=== PATIENT | female | born 1935 | race Caucasian/White ===

== ENCOUNTER 2019-02-08 11:33 | Inpatient (IN) | payer MEDICARE, OTHER, SELFPAY ==
[2019-02-08] VITALS (11 sets, daily range): BP systolic 100–115; BP diastolic 64–70; PULSE 75–113; RESP 20–92; TEMP 36.7–36.9; O2SAT 90–100; BMI 20.4; BMI 21.3
--- NOTE | 2019-02-08 11:59 | EKG12_ITS ---
Test Reason : SOB Blood Pressure : / mmHG Vent. Rate : 101 BPM Atrial Rate : 101 BPM P-R Int : 130 ms QRS Dur : 084 ms QT Int : 346 ms P-R-T Axes : 025 -17 006 degrees QTc Int : 448 ms Sinus tachycardia with occasional Premature ventricular complexes Otherwise normal ECG Confirmed by ESTEBAN CLEMONS ([id number]), technical editor NANI HARKINS ([id number]) on 02/12/2019 1:20:45 PM Referred By: Ange White Confirmed By:ESTEBAN CLEMONS
[2019-02-08] MEDS: Ipratropium/Albuterol Sulfate 3 ML AMPUL.NEB INHALATION (12:18)
--- NOTE | 2019-02-08 12:22 | CPS ---
Per pt and family, pt wears 3l oxygen at home.
[2019-02-08 12:25] LABS: Absolute Lymphocyte Count 1.55 X10^3/uL (0.83-4.51); Absolute Neutrophil Count 8.3 X10^3/uL (2.0-7.7); Basophil% 0.8 % (0-1); Eosinophil# 0.47 X10^3/uL; Eosinophils% 3.9 % (0-5); Hematocrit 42.6 % (37-47); Hemoglobin 14.1 g/dL (12.0-15.0); Lymphocyte # 1.55 X10^3/ul (4.0); Lymphocyte % 12.9 % (19-41); Mean Corp Hgb Conc 33.1 g/dL (32-36); Mean Corpuscular Hgb 30.7 pg (27.0-32.0); Mean Corpuscular Volume 92.8 fL (81-99); Mean Platelet Vol. 10.5 fl (6.2-12.0); Monocyte# 1.45 X10^3/uL; Monocyte% 12.1 % (0-10); NRBC Flagged by Analyzer 0 % (0-5); Neutrophil # 8.26 X10^3/uL (2.7-7.7); Neutrophil % 69.1 % (47-70); Platelet Count 317 K/mm3 (150-450); RBC Distribution Width CV 12.8 % (11.6-14.6); RBC Distribution Width SD 43.8 fl (35.1-43.9); Red Blood Count 4.59 M/mm3 (4.2-5.4)
[2019-02-08 12:40] LABS: D-Dimer Quantitative (DVT/PE) 1.46 FEU/ug/m (0.27-0.49)
--- NOTE | 2019-02-08 12:40 | ED.RN ---
LAB CALLED WITH D-DIMER 1.46, NOTE LEFT FOR DR. ANAYA.
--- NOTE | 2019-02-08 12:42 | CT_ITS ---
STUDY: CTA CHEST REASON FOR EXAM: Female, 83 years old. One-month history of shortness of breath. RADIATION DOSAGE (If Supplied By Facility): CTDIvol = ( 5.84 ) mGy, DLP = ( 151.28 ) mGycm TECHNIQUE: The examination was performed with the intravenous administration of 75 IV Isovue 370. Post-processing of the angiographic images was performed, with multiplanar reformation and 3D reconstruction. Individualized dose optimization techniques were used for this CT. COMPARISON: Comparison is made with prior study dated December 31, 2015. FINDINGS: Normal enhancement of the main pulmonary artery and right and left pulmonary arteries. Normal enhancement of the bilateral peripheral pulmonary arteries. There is no demonstrated pulmonary embolism. There is atherosclerotic calcification of the aortic arch and descending thoracic aorta with tortuosity. There is no demonstrated aortic dissection. There are calcifications of the coronary arteries. Normal mediastinum. Normal hilar regions. Normal visualized trachea and bronchi. The lungs are well expanded. Stable appearance of the diffuse interstitial markings with areas of honeycombing. Loss of volume in the left hemithorax. There has been essentially no change. Normal pleura. Normal chest wall structures. There are degenerative changes of thoracic spine. Increased kyphosis. Moderate sized hiatal hernia. CT/CTA Chest W/WO Contrast IMPRESSION: Stable appearance of the lungs demonstrating diffuse bilateral interstitial disease in keeping with a pulmonary fibrosis. Volume loss in the left hemithorax. No evidence of pulmonary embolism. Moderate size hiatal hernia. Electronically Signed: Marino Anthony, at 13:35 EDT , Service support ,
[2019-02-08 12:46] LABS: Anion Gap 6 (5-15); BUN 17 mg/dL (7-18); BUN/Creat Ratio 19.4 RATIO (10-20); Calcium,Total 9.8 mg/dL (8.5-10.1); Chloride 96 mmol/L (98-107); Creatinine, Serum 0.88 mg/dL (0.55-1.02); EST Glomerular Filtration Rate 65 mL/min (>60); Est Glom Filt Rate - Afr Amer 79 mL/min (>60); Estimated Creatinine Clearance 35.91 ml/min; Glucose 115 mg/dL (74-106); Potassium 3.1 mmol/L (3.5-5.1); Sodium Level 135 mmol/L (136-145)
[2019-02-08 12:59] LABS: BNP,B-Type NATRIURETIC PEPTIDE 28.6 pg/mL (0-100)
--- NOTE | 2019-02-08 14:51 | ED.VISSUMM ---
- ER Visit Summary Date of Service: 02/08/19 Chief Complaint: [Shortness of breath History of Present Illness: The patient is a 83 F [presents to the emergency department with increasing shortness of breath over last 2 months. Patient has had a mild cough is nonproductive. She is had no fever. She describes exertional dyspnea. Patient up in till about a month ago did not require home O2 but now is on 3 L all the time. In the office on 3 L she was still hypoxic with pulse ox in the 80s. Patient denies any chest pain. Patient does have a history of interstitial lung disease. Patient has history of hypertension. She denies recent travel or surgery.] Physical Examination: [HEENT-PERRLA, EOMI. Cranial nerves II through XII grossly intact. TMs clear. Mucous membranes moist. No adenopathy. Cardiovascular-regular rate and rhythm without murmur or ectopy Lungs-minutes breath sounds bilaterally with coarse breath sounds bilaterally. Patient has rhonchi. Patient has wheezes. No accessory muscle use or retractions. Abdomen-normoactive bowel sounds, soft, nontender, no rebound or rigidity, no peritoneal signs. Extremities-intact ?4, normal range of motion, normal pulses, atraumatic] Test Results: [EKG obtained on arrival shows sinus rhythm with a ventricular rate of 101 bpm with occasional PVCs. CBC with differential obtained showed a white count of 12,000, hemoglobin 14, hematocrit 43, platelets 317. Chemistries showed a potassium 3.1 otherwise were unremarkable. Troponin was less than 0.15. BNP was 28 and d-dimer was 1.46. Patient had a CTA of the chest that showed no evidence of PE or dissection. Patient was noted to have pulmonary fibrosis.] Emergency Department Course and Treatment: [She was given a DuoNeb aerosol and started on Solu-Medrol.] Treatment Plan: [Admit] Disposition: [Admit] Impression: [Dyspnea Hypoxemia Pulmonary fibrosis] This note was generated with [employer] dictation software. It may contain incorrect words, spelling, and punctuation that were not noted in review of the chart prior to signing ED Disposition - Plan for ED Patient: Referrals: Rakel Franco MD [Primary Care Provider] -
--- NOTE | 2019-02-08 14:57 | NURSING ---
103 LAURA ACUTE HYPOXIC RESP FAILURE DUE TO INTERSTITIAL LUNG DISEASE
--- NOTE | 2019-02-08 15:02 | PCM.HP.STD ---
<Maurilio Sanders - Last Filed: 02/08/19 15:43> Problem List (1) Acute and chronic respiratory failure with hypoxia Status: Acute (2) Interstitial lung disease Status: Chronic (3) Hypertension Status: Chronic History of Present Illness Date of Admission: 02/08/19 Chief Complaint: SOB The patient is a 83 year old F with pmhx of interstitial lung disease, chronic hypoxic respiratory failure on home O2 PRN, pt of Dr. Ayala, also with hx of HTN, who presents tot he ER from the pulmonary office today with SOB. She has chronic lung issues and has some chronic SOB at baseline, however normally she can function day to day at home without any oxygen and only uses it as needed after she goes out Over the past 3-4 weeks she has progressively worsened. She is SOB at rest and worse with exertion. She has been using O2 more and more, now all day and all night. She has a dry, occasional cough. No fevers/chills. No sore throat, congestion, sinus drainage, runny nose, nausea/vomiting/diarrhea. In the ER she is still SOB on 4 lpm O2. CTA in the ER shows pulmonary fibrosis. [] 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) Interstitial lung disease (Chronic) Hypertension (Chronic) Allergies LOBSTER Allergy (Uncoded 02/08/19 11:34) Anaphylaxis Home Medications: Ambulatory Orders Medication Instructions Recorded Amlodipine [Norvasc] 10 mg PO DAILY 06/20/13 [place]on-3 Fatty Acids/Fish Oil 1 cap PO DAILY 06/20/13 [[place] 3 Fish Oil Softgel] Ubidecarenone [Co Q-10] 100 mg PO DAILY 06/20/13 Cholecalciferol (Vitamin D3) 2,000 unit PO DAILY 02/08/19 [D3-2000] Lactobacillus Acidophilus 1 cap PO DAILY 02/08/19 [Acidophilus] Vitamin B Complex 1 ea PO DAILY 02/08/19 Surgical History: no surgical history Psychiatric History: No pertinent psych hx 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 Denies: Pleuritic Pain, Sputum production Gastrointestinal: Denies: Abdominal Pain, Nausea, Vomiting Genitourinary: Denies: Dysuria Musculoskeletal: Denies: Joint Pain, Joint Tenderness Skin: Denies: Rash, Wounds Neurological: Denies: Numbness, Tingling, Focal weakness Psychiatric: Denies: Anxiety, Depression, Homicidal Ideations, Suicidal Ideations Hematologic/ Lymphatic: Denies: Easy Bruising, Easy Bleeding VTE Information - Inpt Only VTE Present on Admission: No VTE Mechan Device Prophylaxis: None VTE Pharm Prophylaxis ordered?: Yes Patient Problems: Active and Suspected Problems Acute and chronic respiratory failure with hypoxia (Acute) - Physical Exam General: Alert, Oriented x3, Cooperative HEENT: Atraumatic, PERRLA, EOMI, Normocephalic Neck: Supple, No JVD, Negative Carotid Bruits Lungs: Rales - fine crackles left > right, Short of Breath, Wheezes Cardiovascular: Regular rate, No murmurs Abdomen: Bowel Sounds Present, Soft, Non Tender Extremities: No edema, Capillary Refill Less than 3 Seconds Skin: No rashes, No breakdown Musculoskeletal: No Tenderness to Palpation of Joints or Extremities Neurological: Cranial nerves II-XII grossly intact Psych/Mental Status: Normal Affect, Appropriate, Alert and oriented to time, place, person, mood and affect Vital Signs Temp Pulse Resp BP Pulse Ox 98.5 F 97 20 H 110/67 100 02/08/19 11:35 02/08/19 13:36 02/08/19 13:36 02/08/19 13:36 02/08/19 13:36 Oxygen Flow Rate (L/min) 4 Oxygen Delivery Method Nasal Cannula Weight: 108 lb Body Mass Index (BMI) 20.4 Laboratory Tests Past 24 Hrs 02/08/19 02/08/19 02/08/19 12:15 12:15 12:15 WBC 12.0 H RBC 4.59 Hgb 14.1 Hct 42.6 MCV 92.8 MCH 30.7 MCHC 33.1 RDW Std Deviation 43.8 RDW Coeff of Paz 12.8 Plt Count 317 MPV 10.5 Immature Gran % (Auto) 1.200 H Neut % (Auto) 69.1 Lymph % (Auto) 12.9 L [place] % (Auto) 12.1 H Eos % (Auto) 3.9 Baso % (Auto) 0.8 Absolute Neuts (auto) 8.3 H Absolute Lymphs (auto) 1.55 Nucleated RBC % 0 D-Dimer Quant (PE/DVT) 1.46 H* Sodium 135 L Potassium 3.1 L Chloride 96 L Carbon Dioxide 33.0 H Anion Gap 6 BUN 17 Creatinine 0.88 Estim Creat Clear Calc 35.91 Est GFR (MDRD) Af Amer 79 Est GFR (MDRD) Non-Af 65 BUN/Creatinine Ratio 19.4 Glucose 115 H Calcium 9.8 Troponin I < 0.015 B-Natriuretic Peptide 02/08/19 12:15 WBC RBC Hgb Hct MCV MCH MCHC RDW Std Deviation RDW Coeff of Paz Plt Count MPV Immature Gran % (Auto) Neut % (Auto) Lymph % (Auto) [place] % (Auto) Eos % (Auto) Baso % (Auto) Absolute Neuts (auto) Absolute Lymphs (auto) Nucleated RBC % D-Dimer Quant (PE/DVT) Sodium Potassium Chloride Carbon Dioxide Anion Gap BUN Creatinine Estim Creat Clear Calc Est GFR (MDRD) Af Amer Est GFR (MDRD) Non-Af BUN/Creatinine Ratio Glucose Calcium Troponin I B-Natriuretic Peptide 28.6 Assessment/Plan All Active Problems Acute and chronic respiratory failure with hypoxia (Acute) Acute respiratory alkalosis (Acute) Hypokalemic alkalosis (Acute) Sensation of gaseous abdominal fullness (Acute) 1. Acute on chronic hypoxic/hypercapnic respiratory failure 2/2 worsening of interstitial lung disease vs COPD exacerbation - CTA with pulmonary fibrosis. No PE. Mild leukocytosis. Afebrile. Mild tachycardia and tachypnea. Requiring 4 lpm O2 in the ER. Pt of Dr. Ayala. Consider consult to pulmonary medicine. Provide aerosols, steroids. Check viral panel. BNP negative. Troponin negative. EKG SR with PVCs. Obtain records from pulm office. 2. Hypokalemia - replete 3. HTN - stable. DVT ppx: lovenox This patient was seen by Maurilio Sanders PA-C under the supervision of Dr. White. <ChristopherAnge - Last Filed: 02/08/19 16:22> History of Present Illness The patient is a 83 year old F [] Past Medical History Allergies LOBSTER Allergy (Uncoded 02/08/19 11:34) Anaphylaxis - Physical Exam Vital Signs Temp Pulse Resp BP Pulse Ox 98.2 F 90 22 H 113/67 96 02/08/19 16:02 02/08/19 16:02 02/08/19 16:02 02/08/19 16:02 02/08/19 16:02 Oxygen Flow Rate (L/min) 2 Oxygen Delivery Method Nasal Cannula Weight: 112 lb 14.027 oz Body Mass Index (BMI) 21.3 Laboratory Tests Past 24 Hrs 02/08/19 02/08/19 02/08/19 12:15 12:15 12:15 WBC 12.0 H RBC 4.59 Hgb 14.1 Hct 42.6 MCV 92.8 MCH 30.7 MCHC 33.1 RDW Std Deviation 43.8 RDW Coeff of Paz 12.8 Plt Count 317 MPV 10.5 Immature Gran % (Auto) 1.200 H Neut % (Auto) 69.1 Lymph % (Auto) 12.9 L [place] % (Auto) 12.1 H Eos % (Auto) 3.9 Baso % (Auto) 0.8 Absolute Neuts (auto) 8.3 H Absolute Lymphs (auto) 1.55 Nucleated RBC % 0 D-Dimer Quant (PE/DVT) 1.46 H* Sodium 135 L Potassium 3.1 L Chloride 96 L Carbon Dioxide 33.0 H Anion Gap 6 BUN 17 Creatinine 0.88 Estim Creat Clear Calc 35.91 Est GFR (MDRD) Af Amer 79 Est GFR (MDRD) Non-Af 65 BUN/Creatinine Ratio 19.4 Glucose 115 H Calcium 9.8 Troponin I < 0.015 B-Natriuretic Peptide 02/08/19 12:15 WBC RBC Hgb Hct MCV MCH MCHC RDW Std Deviation RDW Coeff of Paz Plt Count MPV Immature Gran % (Auto) Neut % (Auto) Lymph % (Auto) [place] % (Auto) Eos % (Auto) Baso % (Auto) Absolute Neuts (auto) Absolute Lymphs (auto) Nucleated RBC % D-Dimer Quant (PE/DVT) Sodium Potassium Chloride Carbon Dioxide Anion Gap BUN Creatinine Estim Creat Clear Calc Est GFR (MDRD) Af Amer Est GFR (MDRD) Non-Af BUN/Creatinine Ratio Glucose Calcium Troponin I B-Natriuretic Peptide 28.6 Assessment/Plan Patient seen by Maurilio Sanders PA-C Under my supervision. Patient admitted with a complaint of worsening shortness of breath for the past month. She is usually on 2L of oxygen prn at home, but this has not been enough of late. She see a family engagement specialist today and required 4 L of oxygen even with her she was saturation in the low 80s. She admits to a chronic cough which is nonproductive. She denies any fever or chills or wheezing, any chest pain or any other symptoms. Her interstitial lung disease for which she has been seeing a family engagement specialist for is thought to be due to environmental factors but a clear cause has not been pinpointed. REview of systems was otherwise negative. o/e: Vital Signs Height 5 ft 1 in Weight: 112 lb 14.027 oz Weight in Pounds 112.9 lbs Pulse Ox 96 Temperature 98.2 F Pulse Rate 90 Respiratory Rate 22 Blood Pressure 113/67 Blood Pressure Position Semi-Fowlers General: Alert, Oriented x3, Cooperative HEENT: Atraumatic, PERRLA, EOMI, Normocephalic Neck: Supple, No JVD, Negative Carotid Bruits Lungs: coarse crackles in mid and lower lung quiles, no wheezes or rhonchi. on 4L of oxygen by nasal canula Cardiovascular: Regular rate, No murmurs Abdomen: Bowel Sounds Present, Soft, Non Tender Extremities: No edema, Capillary Refill Less than 3 Seconds Skin: No rashes, No breakdown Musculoskeletal: No Tenderness to Palpation of Joints or Extremities Neurological: Cranial nerves II-XII grossly intact Psych/Mental Status: Normal Affect, Appropriate, Alert and oriented to time, place, person, mood and affect Plan is to admit and manage for acute flareup of her interstitial lung disease. Patient counseled that this could also be a worsening of the interstitial lung disease as this would fall in line with the cause of the disease. IV Solu-Medrol 40 mg nightly. Titrate oxygen to maintain saturation above 90%. Breathing treatments. Consult pulmonology. CTA showed diffuse bilateral interstitial disease and volume loss in the left hemithorax with no evidence of pulmonary embolism. Potassium was also slightly low and will replace and monitor. Code Status discussed with patient and she wishes to be DNR CCA. Total time spent discussing CODE STATUS with patient 16 minutes. Rest of management as per Maurilio Sanders PA-C's note, which I have reviewed and endorsed. Code Visit Inpatient E&M: 63908 Init Hosp L3 Procedures: 76869 Advncd Care Plan 30 Min
--- NOTE | 2019-02-08 15:10 | ED.RN ---
PT WAS TAKEN TO PCU PRIOR TO THIS NURSE ADMINISTERING SOLUMEDROL 80MG IVP. THIS NURSE CALLED PCU, SPOKE WITH NICKIE DIAZAND EXPLAINED THAT PT NEEDS THE DOSE OF SOLUMEDROL 80 MG IVP.
[2019-02-08] MEDS: MethylPREDNISolone 125 MG/2 ML Vial 80 MG IV (16:06)
[2019-02-09] VITALS (13 sets, daily range): BP systolic 114–132; BP diastolic 68–79; PULSE 66–101; RESP 18–24; TEMP 36.3–36.7; O2SAT 74–98
[2019-02-09 05:51] LABS: Absolute Lymphocyte Count 1.08 X10^3/uL (0.83-4.51); Absolute Neutrophil Count 8.7 X10^3/uL (2.0-7.7); Basophil# 0.02 X10^3/uL; Basophil% 0.2 % (0-1); Eosinophil# 0.01 X10^3/uL; Eosinophils% 0.1 % (0-5); Hematocrit 41.9 % (37-47); Hemoglobin 13.4 g/dL (12.0-15.0); Lymphocyte # 1.08 X10^3/ul (4.0); Lymphocyte % 10.6 % (19-41); Mean Corpuscular Hgb 29.7 pg (27.0-32.0); Mean Corpuscular Volume 92.9 fL (81-99); Mean Platelet Vol. 11.1 fl (6.2-12.0); Monocyte# 0.27 X10^3/uL; Monocyte% 2.7 % (0-10); NRBC Flagged by Analyzer 0 % (0-5); Neutrophil # 8.65 X10^3/uL (2.7-7.7); Neutrophil % 84.9 % (47-70); Platelet Count 313 K/mm3 (150-450); RBC Distribution Width CV 12.7 % (11.6-14.6); RBC Distribution Width SD 43.6 fl (35.1-43.9); Red Blood Count 4.51 M/mm3 (4.2-5.4); White Blood Count 10.2 K/mm3 (4.4-11.0)
[2019-02-09 06:08] LABS: Anion Gap 8 (5-15); BUN 19 mg/dL (7-18); BUN/Creat Ratio 23.1 RATIO (10-20); Calcium,Total 9.9 mg/dL (8.5-10.1); Chloride 102 mmol/L (98-107); Creatinine, Serum 0.82 mg/dL (0.55-1.02); EST Glomerular Filtration Rate 70 mL/min (>60); Est Glom Filt Rate - Afr Amer 85 mL/min (>60); Estimated Creatinine Clearance 38.54 ml/min; Glucose 144 mg/dL (74-106); Potassium 3.7 mmol/L (3.5-5.1); Sodium Level 143 mmol/L (136-145)
[2019-02-09] MEDS: Enoxaparin 40 MG/0.4 ML Syringe SC (09:23)
[2019-02-09] MEDS: amLODIPine 10 MG Tablet PO (09:23)
[2019-02-09] MEDS: Vitamin B Comp W-C Capsule 1 CAP PO (09:23)
--- NOTE | 2019-02-09 12:26 | PN_ITS ---
<Maurilio Sanders - Last Filed: 02/09/19 12:26> Patient Problems: Active and Suspected Problems Acute and chronic respiratory failure with hypoxia (Acute) Subjective: Pt resting comfortably in bed NAD. SOB is minimally improved at best. Dry cough. No fever/chills. Still SOB with exertion. Remains on 3 lpm o2 via NC. No CP, no LE edema, no palp. No dizziness/LH. - Physical Exam General: Alert, Oriented x3, Cooperative HEENT: Atraumatic, PERRLA, EOMI, Normocephalic Neck: Supple, No JVD, Negative Carotid Bruits Lungs: Diminished, Rales, Wheezes - faint expiratory wheezing Cardiovascular: Regular rate, No murmurs Abdomen: Bowel Sounds Present, Soft, Non Tender Extremities: No edema, Capillary Refill Less than 3 Seconds Skin: No rashes, No breakdown Musculoskeletal: No Tenderness to Palpation of Joints or Extremities Neurological: Cranial nerves II-XII grossly intact Psych/Mental Status: Normal Affect, Appropriate, Alert and oriented to time, place, person, mood and affect Vital Signs Temp Pulse Resp BP Pulse Ox 98 F 88 20 H 124/69 H 93 02/09/19 09:00 02/09/19 09:00 02/09/19 09:56 02/09/19 09:00 02/09/19 09:56 Oxygen Flow Rate (L/min) 3 Oxygen Delivery Method Room Air Weight: 112 lb 14.027 oz Body Mass Index (BMI) 21.3 Intake and Output for Last 24 Hours 02/07/19 02/08/19 02/09/19 23:59 23:59 23:59 Intake Total 350 / 350 600 / 600 Balance 350 / 350 600 / 600 Laboratory Tests Past 24 Hrs 02/08/19 02/08/19 02/08/19 12:15 12:15 12:15 WBC 12.0 H RBC 4.59 Hgb 14.1 Hct 42.6 MCV 92.8 MCH 30.7 MCHC 33.1 RDW Std Deviation 43.8 RDW Coeff of Paz 12.8 Plt Count 317 MPV 10.5 Immature Gran % (Auto) 1.200 H Neut % (Auto) 69.1 Lymph % (Auto) 12.9 L [place] % (Auto) 12.1 H Eos % (Auto) 3.9 Baso % (Auto) 0.8 Absolute Neuts (auto) 8.3 H Absolute Lymphs (auto) 1.55 Nucleated RBC % 0 D-Dimer Quant (PE/DVT) 1.46 H* Sodium 135 L Potassium 3.1 L Chloride 96 L Carbon Dioxide 33.0 H Anion Gap 6 BUN 17 Creatinine 0.88 Estim Creat Clear Calc 35.91 Est GFR (MDRD) Af Amer 79 Est GFR (MDRD) Non-Af 65 BUN/Creatinine Ratio 19.4 Glucose 115 H Calcium 9.8 Troponin I < 0.015 B-Natriuretic Peptide 02/08/19 02/09/19 02/09/19 12:15 05:10 05:10 WBC 10.2 RBC 4.51 Hgb 13.4 Hct 41.9 MCV 92.9 MCH 29.7 MCHC 32.0 RDW Std Deviation 43.6 RDW Coeff of Paz 12.7 Plt Count 313 MPV 11.1 Immature Gran % (Auto) 1.500 H Neut % (Auto) 84.9 H Lymph % (Auto) 10.6 L [place] % (Auto) 2.7 Eos % (Auto) 0.1 Baso % (Auto) 0.2 Absolute Neuts (auto) 8.7 H Absolute Lymphs (auto) 1.08 Nucleated RBC % 0 D-Dimer Quant (PE/DVT) Sodium 143 Potassium 3.7 Chloride 102 Carbon Dioxide 33.0 H Anion Gap 8 BUN 19 H Creatinine 0.82 Estim Creat Clear Calc 38.54 Est GFR (MDRD) Af Amer 85 Est GFR (MDRD) Non-Af 70 BUN/Creatinine Ratio 23.1 H Glucose 144 H Calcium 9.9 Troponin I B-Natriuretic Peptide 28.6 Medical Necessity - Tobacco Use Smoking Status: Never smoker Tobacco Use: Non-smoker Assessment/Plan All Active Problems Acute and chronic respiratory failure with hypoxia (Acute) Acute respiratory alkalosis (Acute) Hypokalemic alkalosis (Acute) Sensation of gaseous abdominal fullness (Acute) 1. Acute on chronic hypoxic/hypercapnic respiratory failure 2/2 worsening of interstitial lung disease vs COPD exacerbation - CTA with pulmonary fibrosis. No PE. Leukocytosis resolved. Continue aerosols and steroids. Per pulm, there is a possibility of underlying connective tissue disease. Trop/bnp negative. Follows with Dr. Higginbotham as o/p. 2. Hypokalemia - resolved 3. HTN - stable. DVT ppx: lovenox This patient was seen by Maurilio Sanders PA-C under the supervision of Dr. Saucedo <Valery Saucedo - Last Filed: 02/09/19 14:50> - Physical Exam Vital Signs Temp Pulse Resp BP Pulse Ox 98 F 88 20 H 124/69 H 93 02/09/19 09:00 02/09/19 09:00 02/09/19 09:56 02/09/19 09:00 02/09/19 09:56 Oxygen Flow Rate (L/min) 3 Oxygen Delivery Method Room Air Weight: 51.2 kg Body Mass Index (BMI) 21.3 Intake and Output for Last 24 Hours 02/07/19 02/08/19 02/09/19 23:59 23:59 23:59 Intake Total 350 / 350 600 / 600 Balance 350 / 350 600 / 600 Laboratory Tests Past 24 Hrs 02/09/19 02/09/19 05:10 05:10 WBC 10.2 RBC 4.51 Hgb 13.4 Hct 41.9 MCV 92.9 MCH 29.7 MCHC 32.0 RDW Std Deviation 43.6 RDW Coeff of Paz 12.7 Plt Count 313 MPV 11.1 Immature Gran % (Auto) 1.500 H Neut % (Auto) 84.9 H Lymph % (Auto) 10.6 L [place] % (Auto) 2.7 Eos % (Auto) 0.1 Baso % (Auto) 0.2 Absolute Neuts (auto) 8.7 H Absolute Lymphs (auto) 1.08 Nucleated RBC % 0 Sodium 143 Potassium 3.7 Chloride 102 Carbon Dioxide 33.0 H Anion Gap 8 BUN 19 H Creatinine 0.82 Estim Creat Clear Calc 38.54 Est GFR (MDRD) Af Amer 85 Est GFR (MDRD) Non-Af 70 BUN/Creatinine Ratio 23.1 H Glucose 144 H Calcium 9.9 Assessment/Plan This patient was seen in conjunction with SUMANTH Buckley. I have independently interviewed and examined the patient and reviewed pertinent historical, laboratory, and other data. Please refer to SUMANTH Buckley note for his patient's presentation, findings, and recommendations. I have reviewed and his note and concur with his documentation Patient was seen and examined. Admitted last night with worsening shortness of breath. She is very short of breath on exertion and on speaking. Denied any chest pain or fever or dizziness. No acute events overnight. Vitals are stable. Physical Exam: Gen: Comfortable, not pale, not jaundiced, well hydrated CVS:HS I +II, regular, no murmurs RESP: CTA GI: BS present and normal, soft, nontender, no palpable organs EXT:No edema Labs reviewed. ASSESSMENT: 1. Acute exacerbation of NSIP 2. Hypokalemia, resolved 3. Hypertension Plan: Continue on breathing treatments, Solu-Medrol, incentive spirometer Code Visit Inpatient E&M: 82045 Subs Hosp L2
--- NOTE | 2019-02-09 13:00 | CASEMGMT ---
RN KELLEY CNC MILL OPERATOR CM to room to meet with patient for initial transition planning/care coordination assessment. ALLISON BENSON introduced self and role at [facility]. Pt voices understanding and consents to assessment at this time. Pt resting in bed in no distress at this time. SonSean, @ bedside. Pt is A/O at this time and answers all questions appropriately. Care providers, pharmacy, and demographics verified/updated at this time. PCP: Joan Specialists: Neftaly--pulmonology Preferred Pharmacy: [facility] Insurance: [facility] Prescription Benefit: Yes Living Will/HPOA: Has both LW and HCPOA, who is her son, Sean. LNOK: 4 living adult sons. Sean Burger (HCPOA), GatoDarius Living Arrangements: Lives w/her son Tao. SonSean, lives next door. Tao does the shopping, assists w/cooking, and yardwork. Pt's bedroom is on the 2nd floor and she has difficulty getting up them. Sons Tao and Sean assist her with getting up the stairs. Has bathroom on 2nd floor where bedroom is. Pt able to complete ADL's independently. Sean states they are looking into getting a chair lift to the 2nd floor. SonTao, is not home for many hours during the day and sonSean, is leaving tomorrow on vacation for 10 days. Transportation: Sons DME: Has grab bar in bathroom. Has O2 @ 2L/M thru [employer] continuously. Sean states he has access to a shower chair and other medical equipment. Pt states no need for further DME at this time. HHC/SNF: No history of either. Pt wishes to go to a SNF and is requesting TCU. Isis RSOSI, made aware. CM to follow for further discharge planning/needs. Pt voices no further concerns/needs at this time. Advised pt to ask for CM if any further questions/concerns/needs arise. Voices understanding. PLAN: TCU Rohini SANTIAGO RN, CM
--- NOTE | 2019-02-09 13:37 | CASEMGMT ---
Addendum entered by Isis Boyce 02/09/19 13:44: Pt will be here until Tuesday, as per physician. SW spoke w/pt, let her know that TCU will have a bed Tuesday and as per physician pt will need to be here until then. Pt agreeable to go to TCU, agreeable to have SW call her son also. SW called son Sean, let him know that TCU will have a bed for pt Tuesday, son also in agreement for pt to go to TCU Tuesday. Green sheet placed on chart in anticipation of discharge Tuesday to TCU. GARIMA Mares Original Note: As per CM, pt would like to go to TCU if she qualifies. SW called TCU, spoke w/Cassy, they would have a bed for pt Tuesday. SW will follow up w/physician. GARIMA Mares
--- NOTE | 2019-02-09 14:27 | CHAPLAIN ---
Type of Pastoral Visit _x__ Initial Visit ___ Follow-up Visit ___ On-call Visit ___ General Patient Visit ___ Spiritual Assessment ___ Family Conference ___ Bereavement ___ Rapid Response ___ Code Blue ___ Other (describe below) Pastoral Care Referral From _x__ Patient ___ Family ___ Nurse ___ Physician ___ Straightening Machine Feeder ___ Peoplesoft Consultant ___ Other (describe below) Sacrament/Intervention _x__ Active listening ___ Anointing ___ Buddhist ___ Bereavement ___ Communion _x__ Holly exploration ___ ___ Life review _x__ Prayer ___ Reconciliation ___ Sacrament of Sick _x__ Supportive presence ___ Wedding ___ Other (describe below) Pastoral Comments patient is quick to express her desire to go home with an upward finger - meaning to rauliton; pt verifies this is her desire and that I am ready; pt says this is not up to me but that is what I hope for; pt talks about decision being made today concerning if she goes to her home or to SNF; son is sitting with pt in her room; son affirms that he knows his mother's intentions; pt says she has no concerns, has good support, and is connected to a local zoroastrian; pt requests prayer
--- NOTE | 2019-02-09 14:36 | ECHOD_ITS ---
Reason For Study: PHTN Procedure This was a 2D Doppler, Color Flow transthoracic echocardiogram. Exam performed portable in patient room. Left Ventricle Normal LV size. Senile septal hypertrophy of no clinical significance. The estimated ejection fraction is 65 %. Stage 1 diastolic dysfunction. No regional wall motion abnormalities noted. Right Ventricle Normal size and thickness. Normal systolic function. Atria Normal left atrium. Normal right atrium. Normal atrial septum. Bubble contrast study negative for right to left interatrial shunt. Mitral Valve Mild focal mitral valve thickening. Trivial mitral valve insufficiency. Tricuspid Valve Normal tricuspid valve. Mild (1+) tricuspid valve insufficiency. Right ventricular systolic pressure estimated to be 48 mmHg. Moderate pulmonary hypertension. Aortic Valve Trisinus/trileaflet aortic valve. Mild focal thickening of right coronary cusp. There is no aortic stenosis. Pulmonic Valve Normal pulmonic valve. Great Vessels Normal aortic root. Normal arch. Normal inferior vena cava. Inferior vena cava collapse with sniff. Pericardium/Pleural No pericardial effusion. Medication Performed a rapid injection of agitated mix of 9 cc saline and 1cc air to assess for atrial septal defect. MMode/2D Measurements & Calculations LVIDd: 4.4 cm IVSd: 0.81 cm Ao root diam: 3.2 cm LVIDs: 3.0 cm LVPWd: 0.82 cm RVDd: 2.9 cm FS: 33.1 % LAV(MOD-bp): 35.8 ml LVAd ap4: 16.3 cm2 SV(MOD-sp4): 22.1 ml LAV(MOD-bp) Indexed: 24.2 ml/m2 EDV(MOD-sp4): 38.7 ml LAV(MOD-sp2): 40.4 ml EDV(sp4-el): 40.6 ml LAV(MOD-sp4): 29.9 ml LVAs ap4: 9.0 cm2 ESV(MOD-sp4): 16.6 ml ESV(sp4-el): 16.2 ml EF(MOD-sp4): 57.1 % EF(sp4-el): 60.1 % SV(sp4-el): 24.4 ml LA A4 area: 14.1 cm2 LA dimension(2D): 3.7 cm RA A4 area: 13.8 cm2 Doppler Measurements & Calculations MV E max carlos: 66.4 cm/sec Lat Peak E' Carlos: 7.9 cm/sec Med Peak E' Carlos: 3.3 cm/sec MV A max carlos: 115.1 cm/sec E/E' lat: 8.4 E/E' med: 20.2 MV E/A: 0.58 Ao V2 max: 152.7 cm/sec LV V1 max: 94.7 cm/sec PA V2 max: 77.9 cm/sec Ao max P.3 mmHg LV V1 max P.6 mmHg Ao V2 mean: 105.3 cm/sec Ao mean P.8 mmHg Ao V2 VTI: 27.8 cm TR max carlos: 329.0 cm/sec TR max P.3 mmHg Interpretation Summary The estimated ejection fraction is 65 %. Stage 1 diastolic dysfunction. Trivial mitral valve insufficiency. Mild (1+) tricuspid valve insufficiency. Bubble contrast study negative for right to left interatrial shunt. Right ventricular systolic pressure estimated to be 48 mmHg. Moderate pulmonary hypertension. There is no comparison study available. Ordering Physician: Fady Woodruff Referring Physician: Rakel Franco Performed By: Arabella Bello, TAMI, RVT
--- NOTE | 2019-02-09 14:42 | PCM.CONS.PUL ---
Problem List (1) Acute and chronic respiratory failure with hypoxia Status: Acute (2) Sensation of gaseous abdominal fullness Status: Acute (3) Chronic restrictive lung disease Status: Chronic (4) History of Clostridium difficile colitis Status: Chronic (5) Chronic recurrent sigmoid diverticulitis Status: Chronic (6) Interstitial lung disease Status: Chronic (7) Hypertension Status: Chronic Reason for Consult Date of Consultation: 02/09/19 Reason for Consultation: Hypoxemia, ILD History of Present Illness: The patient is a 83 year old F, with past medical history listed below, who presented [facility] with progressive shortness of breath over the last 2 months. Patient had reported a mild cough that was nonproductive and exertional dyspnea. Patient has been followed by Dr. Higginbotham at the [facility] for over 10 years. Patient reportedly has not required supplemental oxygen previously on a routine basis, but approximately a month ago started to wear 3 L all the time. Patient does have a home pulse oximeter and states that she checks this frequently. In the ER, patient had an EKG showing sinus tachycardia. Hemoglobin was slightly elevated at 14, potassium 3.1 and BNP of 28. Patient had a CTA of the chest showing no acute PE or dissection. Patient did have multiple areas of fibrosis noted. Patient was started on Solu-Medrol and admitted to the floor for further evaluation. Since admission, patient reports mild improvement in overall condition. Patient reports a history of using prednisone therapy, but we may be go crazy and I would rather . Patient has reported decreased exercise tolerance and estimates approximately 20 to 50 feet at this time. Patient has not had any rashes, lower extremity edema, fever or chills. Patient has noted that her saturations can drop significantly with ambulation. Patient does not wear any positive pressure to assist with sleep. Patient has had recent chest x-rays, but not CAT scans. Patient is unaware if she is ever had an echocardiogram. Patient does state that her last pulmonary function test was reportedly worse, but she is unable to tell exactly whether this was more restriction or the addition of obstruction. 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 Patient is reporting no significant production from her cough. Patient has not had any hemoptysis. Patient believes her diet is unchanged. No diarrhea or urinary symptoms reported. Patient denies any GERD. Patient denies any toxic exposures. Review of systems otherwise negative x10 systems. 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) Interstitial lung disease (Chronic) Hypertension (Chronic) Allergies LOBSTER Allergy (Uncoded 02/08/19 11:34) Anaphylaxis Home Medications: Ambulatory Orders Medication Instructions Recorded Amlodipine [Norvasc] 10 mg PO DAILY 06/20/13 [place]-3 Fatty Acids/Fish Oil 1 cap PO DAILY 06/20/13 [[place] 3 Fish Oil Softgel] Ubidecarenone [Co Q-10] 100 mg PO DAILY 06/20/13 Cholecalciferol (Vitamin D3) 2,000 unit PO DAILY 02/08/19 [D3-2000] Lactobacillus Acidophilus 1 cap PO DAILY 02/08/19 [Acidophilus] Vitamin B Complex 1 ea PO DAILY 02/08/19 Surgical History: no surgical history Psychiatric History: No pertinent psych hx 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 Patient does have some traction bronchiectasis noted. No significant PE noted. Patient does have some kyphosis - Physical Exam General: Alert, Oriented x3, Cooperative, - - Mild conversational dyspnea. Appears stated age. HEENT: Atraumatic, PERRLA, EOMI, Normocephalic, - - No scleral icterus or injection noted. Oral: Moist Mucosa, No Gingival or Mucosal Lesions/ Ulcerations Neck: Supple, No Nodes, Trachea Midline, JVD, Right Lungs: No rhonchi, Rales - Bilateral, Wheezes - Improves with coughing Cardiovascular: Regular rate, Regular Rhythm, Normal S1, Normal S2, Murmur - Grade 2 out of 6 diastolic murmur noted in the left sternal border, No rub noted, No Gallop Abdomen: Bowel Sounds Present, Soft, Non Tender, Non-Distended Extremities: No cyanosis, No edema, Capillary Refill Less than 3 Seconds, Clubbing Skin: No rashes, No breakdown Musculoskeletal: No Tenderness to Palpation of Joints or Extremities Lymphatic: No Cervical, Supraclavicular, or Inguinal Adenopathy Neurological: Cranial nerves II-XII grossly intact, Neuro grossly intact, Motor Exam 5/5 strength throughout Psych/Mental Status: Alert and oriented to time, place, person, mood and affect Vital Signs Temp Pulse Resp BP Pulse Ox 36.6 C 88 20 H 124/69 H 93 02/09/19 09:00 02/09/19 09:00 02/09/19 09:56 02/09/19 09:00 02/09/19 09:56 Oxygen Flow Rate (L/min) 3 Oxygen Delivery Method Room Air Weight: 51.2 kg Body Mass Index (BMI) 21.3 Intake and Output for Last 24 Hours 02/07/19 02/08/19 02/09/19 23:59 23:59 23:59 Intake Total 350 / 350 600 / 600 Balance 350 / 350 600 / 600 Laboratory Tests Past 24 Hrs 02/09/19 02/09/19 05:10 05:10 WBC 10.2 RBC 4.51 Hgb 13.4 Hct 41.9 MCV 92.9 MCH 29.7 MCHC 32.0 RDW Std Deviation 43.6 RDW Coeff of Paz 12.7 Plt Count 313 MPV 11.1 Immature Gran % (Auto) 1.500 H Neut % (Auto) 84.9 H Lymph % (Auto) 10.6 L [place] % (Auto) 2.7 Eos % (Auto) 0.1 Baso % (Auto) 0.2 Absolute Neuts (auto) 8.7 H Absolute Lymphs (auto) 1.08 Nucleated RBC % 0 Sodium 143 Potassium 3.7 Chloride 102 Carbon Dioxide 33.0 H Anion Gap 8 BUN 19 H Creatinine 0.82 Estim Creat Clear Calc 38.54 Est GFR (MDRD) Af Amer 85 Est GFR (MDRD) Non-Af 70 BUN/Creatinine Ratio 23.1 H Glucose 144 H Calcium 9.9 Assessment/Plan All Active Problems Acute and chronic respiratory failure with hypoxia (Acute) Acute respiratory alkalosis (Acute) Hypokalemic alkalosis (Acute) Sensation of gaseous abdominal fullness (Acute) RECOMMENDATIONS: 1. Wean oxygen as tolerated 2. Obtain echocardiogram for possible pulmonary hypertension 3. Initiate pulmonary toileting 4. Sputum culture if able 5. Okay to continue steroid therapy, bronchodilators likely not indicated IMPRESSIONS: 1. 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 This appears to be consistent with CT scan obtained. Patient does have several areas of traction bronchiectasis and is unclear if patient is currently having a bronchiectasis exacerbation. Other differential would be the development of pulmonary hypertension secondary to lack of compliance with supplemental oxygen. Will obtain an echocardiogram for evaluation. Will initiate pulmonary toileting with Acapella to help with airway clearance. Steroid therapy is reasonable at this time, but significant fibrosis will likely not change. Patient does have rales on exam and congestive heart failure would be a consideration. However, BNP is relatively low at this time. 2. Hypertension/history of C. difficile/history of sigmoid colectomy Complicates care, management, recovery and prognosis. Careful with administration of antibiotics without indication. Sputum culture will be requested Code Visit Inpatient E&M: 18799 Init Hosp L3
[2019-02-09] MEDS: 0.9% NaCl Peripheral Flush Adult/Peds IV (22:49)
[2019-02-10] VITALS (9 sets, daily range): BP systolic 115–121; BP diastolic 69–85; PULSE 54–90; RESP 18; TEMP 36.3–36.9; O2SAT 94–99
[2019-02-10] MEDS: 0.9% NaCl Peripheral Flush Adult/Peds IV ×3 (05:10→21:11)
[2019-02-10 07:33] LABS: Anion Gap 8 (5-15); BUN 33 mg/dL (7-18); BUN/Creat Ratio 39.3 RATIO (10-20); Calcium,Total 9.3 mg/dL (8.5-10.1); Chloride 102 mmol/L (98-107); Creatinine, Serum 0.84 mg/dL (0.55-1.02); EST Glomerular Filtration Rate 69 mL/min (>60); Est Glom Filt Rate - Afr Amer 83 mL/min (>60); Estimated Creatinine Clearance 37.62 ml/min; Glucose 128 mg/dL (74-106); Potassium 3.9 mmol/L (3.5-5.1); Sodium Level 142 mmol/L (136-145)
--- NOTE | 2019-02-10 08:18 | PN_ITS ---
Patient Problems: Active and Suspected Problems Acute and chronic respiratory failure with hypoxia (Acute) Subjective: Patient did okay overnight. No subjective change in overall condition, but saturations appear to be improving on stable nasal cannula oxygen. Patient denies any abdominal pain - Physical Exam General: Alert, Oriented x3, Cooperative, No apparent distress, - - No conversational dyspnea. Speaking in full sentences. Appears stated age. HEENT: Atraumatic, PERRLA, EOMI, Normocephalic, - Oral: Moist Mucosa - No scleral icterus or injection noted., No Gingival or Mucosal Lesions/ Ulcerations Neck: Supple, No Nodes, Trachea Midline, JVD, Right Lungs: No wheeze, Diminished, Rales Cardiovascular: Regular rate, Regular Rhythm, Normal S1, Normal S2, Murmur, No rub noted, No Gallop Abdomen: Bowel Sounds Present, Soft, Non Tender, Non-Distended Extremities: No clubbing, No cyanosis, No edema, Capillary Refill Less than 3 Seconds Skin: No rashes, No breakdown Musculoskeletal: No Tenderness to Palpation of Joints or Extremities Lymphatic: No Cervical, Supraclavicular, or Inguinal Adenopathy Neurological: Cranial nerves II-XII grossly intact, Neuro grossly intact, Motor Exam 5/5 strength throughout Psych/Mental Status: Alert and oriented to time, place, person, mood and affect Vital Signs Temp Pulse Resp BP Pulse Ox 36.6 C 54 L 18 118/85 H 94 02/10/19 04:55 02/10/19 07:03 02/10/19 04:55 02/10/19 04:55 02/10/19 07:40 Oxygen Flow Rate (L/min) 3 Oxygen Delivery Method Nasal Cannula Weight: 51.2 kg Body Mass Index (BMI) 21.3 Intake and Output for Last 24 Hours 02/08/19 02/09/19 02/10/19 23:59 23:59 23:59 Intake Total 350 / 350 1080 / 1280 250 / 250 Balance 350 / 350 1080 / 1280 250 / 250 Laboratory Tests Past 24 Hrs 02/10/19 05:14 Sodium 142 Potassium 3.9 Chloride 102 Carbon Dioxide 32.0 Anion Gap 8 BUN 33 H Creatinine 0.84 Estim Creat Clear Calc 37.62 Est GFR (MDRD) Af Amer 83 Est GFR (MDRD) Non-Af 69 BUN/Creatinine Ratio 39.3 H Glucose 128 H Calcium 9.3 Medical Necessity - Tobacco Use Smoking Status: Never smoker Tobacco Use: Non-smoker Assessment/Plan All Active Problems Acute and chronic respiratory failure with hypoxia (Acute) Acute respiratory alkalosis (Acute) Hypokalemic alkalosis (Acute) Sensation of gaseous abdominal fullness (Acute) RECOMMENDATIONS: 1. Wean oxygen as tolerated 2. Await echocardiogram for possible pulmonary hypertension 3. Initiate pulmonary toileting 4. Initiate diuretic therapy if found to have significantly elevated pulmonary artery pressures or RV dysfunction 5. Okay to continue steroid therapy, bronchodilators likely not indicated IMPRESSIONS: 1. 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 This appears to be consistent with CT scan obtained. Patient does have several areas of traction bronchiectasis and is unclear if patient is currently having a bronchiectasis exacerbation. Other differential would be the development of pulmonary hypertension secondary to lack of compliance with supplemental oxygen. Will await echocardiogram for evaluation of pulmonary hypertension. If present, patient may benefit from diuresis. Patient has not really used Acapella therapy as this was provided overnight. This should be encouraged also. Wean oxygen as tolerated. 2. Hypertension/history of C. difficile/history of sigmoid colectomy Complicates care, management, recovery and prognosis. Careful with administration of antibiotics without indication. Sputum culture will be reques sukhwinder Code Visit Inpatient E&M: 72827 Subs Hosp L2
[2019-02-10] MEDS: Vitamin B Comp W-C Capsule 1 CAP PO (09:10)
[2019-02-10] MEDS: Enoxaparin 40 MG/0.4 ML Syringe SC (09:10)
[2019-02-10] MEDS: amLODIPine 10 MG Tablet PO (09:10)
--- NOTE | 2019-02-10 12:42 | PN_ITS ---
<Maurilio Sanders - Last Filed: 02/10/19 12:42> Patient Problems: Active and Suspected Problems Acute and chronic respiratory failure with hypoxia (Acute) Subjective: Pt is very anxious about o2 use and is resistant to having her oxygen weaned down despite pulse ox being excellent. She feels her breathing is mildly impro usman. No edema. No CP/tightness/heaviness. Dry cough. No fever/chills. Pt weak, agreeable to going to TCU at [place]. - Physical Exam General: Alert, Oriented x3, Cooperative HEENT: Atraumatic, PERRLA, EOMI, Normocephalic Neck: Supple, No JVD, Negative Carotid Bruits Lungs: Diminished, Rales, Wheezes Cardiovascular: Regular rate, No murmurs Abdomen: Bowel Sounds Present, Soft, Non Tender Extremities: No edema, Capillary Refill Less than 3 Seconds Skin: No rashes, No breakdown Musculoskeletal: No Tenderness to Palpation of Joints or Extremities Neurological: Cranial nerves II-XII grossly intact Psych/Mental Status: Normal Affect, Appropriate, Alert and oriented to time, place, person, mood and affect Vital Signs Temp Pulse Resp BP Pulse Ox 97.7 F L 76 18 121/69 H 99 02/10/19 09:07 02/10/19 09:07 02/10/19 09:07 02/10/19 09:07 02/10/19 09:07 Oxygen Flow Rate (L/min) 3 Oxygen Delivery Method Nasal Cannula Weight: 112 lb 14.027 oz Body Mass Index (BMI) 21.3 Intake and Output for Last 24 Hours 02/08/19 02/09/19 02/10/19 23:59 23:59 23:59 Intake Total 350 / 350 1080 / 1280 750 / 750 Balance 350 / 350 1080 / 1280 750 / 750 Microbiology Past 72 Hours 02/08/19 12:15 Blood Culture - Preliminary Blood Culture (Wb) - Anticubital Left No growth in 48 hours. Laboratory Tests Past 24 Hrs 02/10/19 05:14 Sodium 142 Potassium 3.9 Chloride 102 Carbon Dioxide 32.0 Anion Gap 8 BUN 33 H Creatinine 0.84 Estim Creat Clear Calc 37.62 Est GFR (MDRD) Af Amer 83 Est GFR (MDRD) Non-Af 69 BUN/Creatinine Ratio 39.3 H Glucose 128 H Calcium 9.3 Medical Necessity - Tobacco Use Smoking Status: Never smoker Tobacco Use: Non-smoker Assessment/Plan All Active Problems Acute and chronic respiratory failure with hypoxia (Acute) Acute respiratory alkalosis (Acute) Hypokalemic alkalosis (Acute) Sensation of gaseous abdominal fullness (Acute) 1. Acute on chronic hypoxic/hypercapnic respiratory failure 2/2 worsening of interstitial lung disease vs COPD exacerbation - CTA with pulmonary fibrosis. No PE. Leukocytosis resolved. Per pulm, there is a possibility of underlying connective tissue disease. Trop/bnp negative. Follows with Dr. Higginbotham as o/p. -pt improving symptomatically, and she is requiring less O2 to maintain good sats. Continue to wean. -Continue steroids. 2. Moderate pulmonary htn per echo today - complicating above. 3. Hypokalemia - resolved 4. HTN - stable. DVT ppx: lovenox This patient was seen by Maurilio Sanders PA-C under the supervision of Dr. Saucedo <Valery Saucedo - Last Filed: 02/10/19 14:50> - Physical Exam Vital Signs Temp Pulse Resp BP Pulse Ox 97.7 F L 76 18 121/69 H 99 02/10/19 09:07 02/10/19 09:07 02/10/19 09:07 02/10/19 09:07 02/10/19 09:07 Oxygen Flow Rate (L/min) 2 Oxygen Delivery Method Nasal Cannula Weight: 51.2 kg Body Mass Index (BMI) 21.3 Intake and Output for Last 24 Hours 02/08/19 02/09/19 02/10/19 23:59 23:59 23:59 Intake Total 350 / 350 1080 / 1280 750 / 750 Balance 350 / 350 1080 / 1280 750 / 750 Microbiology Past 72 Hours 02/08/19 12:15 Blood Culture - Preliminary Blood Culture (Wb) - Anticubital Left No growth in 48 hours. Laboratory Tests Past 24 Hrs 02/10/19 05:14 Sodium 142 Potassium 3.9 Chloride 102 Carbon Dioxide 32.0 Anion Gap 8 BUN 33 H Creatinine 0.84 Estim Creat Clear Calc 37.62 Est GFR (MDRD) Af Amer 83 Est GFR (MDRD) Non-Af 69 BUN/Creatinine Ratio 39.3 H Glucose 128 H Calcium 9.3 Assessment/Plan This patient was seen in conjunction with SUMANTH Buckley. I have independently interviewed and examined the patient and reviewed pertinent historical, laborato ry, and other data. Please refer to SUMANTH Buckley note for his patient's presentation, findings, and recommendations. I have reviewed and his note and concur with his documentation Patient was seen and examined. Feeling better. on 3L oxygen. Denied any chest pain or fever or dizziness. No acute events overnight. Vitals are stable. Physical Exam: Gen: Comfortable, not pale, not jaundiced, well hydrated CVS:HS I +II, regular, no murmurs RESP: CTA GI: BS present and normal, soft, nontender, no palpable organs EXT:No edema Labs reviewed. ASSESSMENT: 1. Acute exacerbation of NSIP 2. Hypokalemia, resolved 3. Hypertension Plan: Continue on breathing treatments, Solu-Medrol, incentive spirometer Code Visit Inpatient E&M: 92866 Subs Hosp L2
[2019-02-11] VITALS (8 sets, daily range): BP systolic 115–137; BP diastolic 70–75; PULSE 72–118; RESP 17–20; TEMP 36.3–36.6; O2SAT 95–98
[2019-02-11] MEDS: 0.9% NaCl Peripheral Flush Adult/Peds IV ×2 (05:22→11:56)
[2019-02-11 06:37] LABS: Anion Gap 7 (5-15); BUN 36 mg/dL (7-18); BUN/Creat Ratio 39.1 RATIO (10-20); Calcium,Total 9.5 mg/dL (8.5-10.1); Chloride 102 mmol/L (98-107); Creatinine, Serum 0.92 mg/dL (0.55-1.02); EST Glomerular Filtration Rate 62 mL/min (>60); Est Glom Filt Rate - Afr Amer 75 mL/min (>60); Estimated Creatinine Clearance 34.35 ml/min; Glucose 131 mg/dL (74-106); Potassium 3.8 mmol/L (3.5-5.1); Sodium Level 141 mmol/L (136-145)
[2019-02-11] MEDS: amLODIPine 10 MG Tablet PO (07:50)
[2019-02-11] MEDS: Enoxaparin 40 MG/0.4 ML Syringe SC (07:50)
[2019-02-11] MEDS: Vitamin B Comp W-C Capsule 1 CAP PO (07:50)
--- NOTE | 2019-02-11 08:10 | PN_ITS ---
Patient Problems: Active and Suspected Problems Acute and chronic respiratory failure with hypoxia (Acute) Subjective: Patient did okay overnight. Oxygen saturations have improved, but patient remains on 3 L nasal cannula. Patient reports that she is hungry this morning, but is denying any chest pain. Patient has had some productive cough associated with Acapella use, but is unclear if this is subjectively helping. Patient does report some concern over constipation. Patient states that she is on had only inadequate bowel movements. Objective: Echocardiogram showed an EF of 65% with stage I diastolic dysfunction and moderately elevated RVSP at 48 mmHg. No shunt appreciated. - Physical Exam General: Alert, Oriented x3, Cooperative, No apparent distress, Well developed, Well nourished, - - No conversational dyspnea. HEENT: Atraumatic, PERRLA, EOMI, Normocephalic, - - No scleral icterus or injection noted. Oral: Moist Mucosa, No Gingival or Mucosal Lesions/ Ulcerations Neck: Supple, No Nodes, Trachea Midline, JVD, Right Lungs: No rhonchi, No wheeze, Diminished, Rales, - - Symmetric expansion. No dullness to percussion Cardiovascular: Regular rate, Regular Rhythm, Normal S1, Normal S2, No murmurs, No rub noted, No Gallop Abdomen: Bowel Sounds Present, Soft, Non Tender, Non-Distended Extremities: No clubbing, No cyanosis, No edema, Capillary Refill Less than 3 Seconds Skin: No rashes, No breakdown Musculoskeletal: No Tenderness to Palpation of Joints or Extremities Lymphatic: No Cervical, Supraclavicular, or Inguinal Adenopathy Neurological: Cranial nerves II-XII grossly intact, Neuro grossly intact, Motor Exam 5/5 strength throughout Psych/Mental Status: Alert and oriented to time, place, person, mood and affect Vital Signs Temp Pulse Resp BP Pulse Ox 36.4 C L 82 17 137/70 H 98 02/11/19 07:38 02/11/19 07:38 02/11/19 07:38 02/11/19 07:38 02/11/19 07:38 Oxygen Flow Rate (L/min) 2 Oxygen Delivery Method Nasal Cannula Weight: 51.2 kg Body Mass Index (BMI) 21.3 Intake and Output for Last 24 Hours 02/09/19 02/10/19 02/11/19 23:59 23:59 23:59 Intake Total 1080 / 1280 1250 / 1300 100 / 100 Balance 1080 / 1280 1250 / 1300 100 / 100 Microbiology Past 72 Hours 02/08/19 12:15 Blood Culture - Preliminary Blood Culture (Wb) - Anticubital Left No growth in 48 hours. Laboratory Tests Past 24 Hrs 02/11/19 05:42 Sodium 141 Potassium 3.8 Chloride 102 Carbon Dioxide 32.0 Anion Gap 7 BUN 36 H Creatinine 0.92 Estim Creat Clear Calc 34.35 Est GFR (MDRD) Af Amer 75 Est GFR (MDRD) Non-Af 62 BUN/Creatinine Ratio 39.1 H Glucose 131 H Calcium 9.5 Medical Necessity - Tobacco Use Smoking Status: Never smoker Tobacco Use: Non-smoker Assessment/Plan All Active Problems Acute and chronic respiratory failure with hypoxia (Acute) Acute respiratory alkalosis (Acute) Hypokalemic alkalosis (Acute) Sensation of gaseous abdominal fullness (Acute) RECOMMENDATIONS: 1. Wean oxygen as tolerated 2. Initiate gentle diuresis 3. Continue pulmonary toileting 4. MiraLAX for constipation 5. Okay to wean steroid therapy and discontinue after 5 days, bronchodilators likely not indicated IMPRESSIONS: 1. 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 This appears to be consistent with CT scan obtained. Patient does have several areas of traction bronchiectasis and is unclear if patient is currently having a bronchiectasis exacerbation. Other differential would be the development of pulmonary hypertension secondary to lack of compliance with supplemental oxygen. Patient's echocardiogram does show some slightly elevated pulmonary artery pressures. We will give a small dose of diuretics. Patient reports going cr azy with prednisone in the past, but is tolerating Solu-Medrol. Will wean steroids and these can be discontinued after 5 days from my perspective. Interventions today should not delay any discharge planning. Patient can follow-up with her primary business economist on discharge. Continue to wean oxygen as tolerated. 2. Hypertension/history of C. difficile/history of sigmoid colectomy Complicates care, management, recovery and prognosis. Careful with administration of antibiotics without indication. Patient is reporting some constipation. MiraLAX will be given. Code Visit Inpatient E&M: 78623 Subs Hosp L2
--- NOTE | 2019-02-11 11:59 | PCM.TXEXTCAR ---
- Diet 02/08/19 15:58 Diet: Cardiac/Low Cholesterol Food consistency:: Regular Liquid Consistency:: Regular/Thin Is pt able to select menu?: Yes - Routine Orders/Code Status O2 Liters per Minute: 2-3 O2 Frequency: Continuous Keep PO Greater than or Equal to (%): 92 - encourage use of PEP and incentive spirometer Routine Lab Work: CBC - within 3 days, BMP - within 3 days Code Status: DNRCC-A - Therapies Physical Therapy: Eval and Treat Occupational Therapy: Eval and Treat - Allergies/Procedures Done in Hospital Allergies/Adverse Reactions: Allergies LOBSTER Allergy (Uncoded 02/08/19 11:34) Anaphylaxis Procedures: None - Type of Care/Length of Stay Estimated LOS: Convalescent Care Less Than 30 days Type of Care Needed: Skilled Rehab Potential: Good Prognosis: Good - Additional Orders/Day of Discharge Day of Discharge: 02/11/19 - Dietary and Speech Recommendations Dietitian Recommendations/Changes: Rec liberal Regular diet d/t only fair po intake - will provide ensure pudding or magic cup w/ lunch and dinner for increased nutrition if consumed. - Follow Up Care Primary Care Physician: Rakel Franco MD [Primary Care Provider] - Please follow up with your Primary Care Physician in: within 1-2 weeks of discharge Please Follow Up With: Fady Woodruff MD When: within 2 weeks
--- NOTE | 2019-02-11 13:12 | NURSING ---
Report called to ALLISON Byers on TCU.
--- NOTE | 2019-02-11 14:46 | PCM.DC.SUM ---
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 Volume loss in the left hemithorax. No evidence of pulmonary embolism. Moderate size hiatal hernia. Echo: Interpretation Summary The estimated ejection fraction is 65 %. Stage 1 diastolic dysfunction. Trivial mitral valve insufficiency. Mild (1+) tricuspid valve insufficiency. Bubble contrast study negative for right to left interatrial shunt. Right ventricular systolic pressure estimated to be 48 mmHg. Moderate pulmonary hypertension. There is no comparison study available. Consults: Pulmonary - Ranjan Operations: None, - - Laparoscopic sigmoid colectomy with mobilization of the splenic flexure Procedures: 2-D Echocardiogram Summary of Care Provided: Hospital course: The patient is a 83 year old F with past medical history of interstitial lung disease, NSIP, hypertension, who presented to the emergency room with increased shortness of breath over the past several weeks. The patient chronically uses oxygen as needed at home but only needs to use it every few days when she is feeling at her baseline. Over the past several weeks she has begun to use oxygen every day, all day long, and all night. Despite this she was still short of breath. She went to her seat cover maker office and was found to be hypoxic on 6 L and was sent to the ER. In the emergency room she had a CTA of the chest which demonstrated pulmonary fibrosis. She had a mild leukocytosis, negative troponin, mildly elevated carbon dioxide on BMP, and negative beta natruretic peptide. Patient did require up to 4 L/min oxygen via nasal cannula in order to maintain good saturations. On exam she had severe rales throughout her lungs as well as wheezing. She was admitted to the PCU on telemetry for acute on chronic hypoxic and hypercapnic respiratory failure. She was given Solu-Medrol and aerosols. Pulmonary medicine was consulted. Pulmonary medicine recommended continuing the steroids and discontinuing the aerosols, and encouraging use of incentive spirometer and Pap therapy. The patient also underwent an echocardiogram which did reveal underlying moderate pulmonary hypertension. The patient did respond well to the steroids. She was able to be weaned to 2 L of oxygen via nasal cannula. The patient remains significantly debilitated. PT OT was ordered and it was recommended that she go to [facility] discharge. She was agreeable. She was transitioned to a 5-day prednisone burst therapy. She was discharged to [facility] in stable condition. She will need to follow-up with her seat cover maker, Dr. Higginbotham, and she will need to follow-up with her PCP in 1 to 2 weeks. This patient was seen by Maurilio Sanders PA-C under the supervision of Doctor Saucedo. [] Patient Problems: Active and Suspected Problems Debility (Acute) Shortness of breath (Acute) - Physical Exam General: Alert, Oriented x3, Cooperative HEENT: Atraumatic, PERRLA, EOMI, Normocephalic Neck: Supple, No JVD, Negative Carotid Bruits Lungs: Diminished, Rales Cardiovascular: Regular rate, No murmurs Abdomen: Bowel Sounds Present, Soft, Non Tender Extremities: No edema, Capillary Refill Less than 3 Seconds Skin: No rashes, No breakdown Musculoskeletal: No Tenderness to Palpation of Joints or Extremities Neurological: Cranial nerves II-XII grossly intact Psych/Mental Status: Normal Affect, Appropriate Vital Signs Temp Pulse Resp BP Pulse Ox 97.8 F 97 18 124/75 H 95 02/11/19 12:19 02/11/19 12:19 02/11/19 12:19 02/11/19 12:19 02/11/19 12:19 Oxygen Flow Rate (L/min) 4 Oxygen Delivery Method Nasal Cannula Weight: 112 lb 14.027 oz Body Mass Index (BMI) 21.3 Intake and Output for Last 24 Hours 02/09/19 02/10/19 02/11/19 23:59 23:59 23:59 Intake Total 1080 / 1280 1250 / 1300 590 / 590 Balance 1080 / 1280 1250 / 1300 590 / 590 Microbiology Past 72 Hours 02/08/19 12:15 Blood Culture - Preliminary Blood Culture (Wb) - Anticubital Left No growth in 48 hours. Laboratory Tests Past 24 Hrs 02/11/19 05:42 Sodium 141 Potassium 3.8 Chloride 102 Carbon Dioxide 32.0 Anion Gap 7 BUN 36 H Creatinine 0.92 Estim Creat Clear Calc 34.35 Est GFR (MDRD) Af Amer 75 Est GFR (MDRD) Non-Af 62 BUN/Creatinine Ratio 39.1 H Glucose 131 H Calcium 9.5 Discharge Diet: Low fat/ Low Cholesterol, 2000 mg Sodium Diet Discharge Activity: Return to Normal Activity Home Medications: Medications to take at Discharge Amlodipine [Norvasc] 10 mg PO DAILY 06/20/13 [place]-3 Fatty Acids/Fish Oil [[place] 3 Fish Oil Softgel] 1 cap PO DAILY 06/20/13 Ubidecarenone [Co Q-10] 100 mg PO DAILY 06/20/13 Cholecalciferol (Vitamin D3) [D3-2000] 2,000 unit PO DAILY 02/08/19 Lactobacillus Acidophilus [Acidophilus] 1 cap PO DAILY 02/08/19 Vitamin B Complex 1 ea PO DAILY 02/08/19 Prednisone 40 mg PO DAILY 02/11/19 Primary Care Physician: Rakel Franco MD [Primary Care Provider] - Please follow up with your Primary Care Physician in: within 1-2 weeks of discharge Please Follow Up With: Fady Woodruff MD When: within 2 weeks Disposition: Nursing Home facility Minutes spent on discharge:: 35 Patient Condition:: Stable Medical Necessity - Tobacco Use Smoking Status: Never smoker Tobacco Use: Non-smoker Meaningful Use Info Meaningful Use Diagnoses (Choose all that apply): None applicable <Valery Saucedo - Last Filed: 02/11/19 15:38> Discharge Date and Diagnosis - Primary Discharge Diagnosis Active and Suspected Problems Debility (Acute) Shortness of breath (Acute) - Secondary Discharge Diagnosis Chronic Problems Chronic restrictive lung disease (Chronic) 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 I have independently interviewed and examined the patient and reviewed pertinent historical, laboratory, and other data. Please refer to SUMANTH Buckley note for his patient's presentation, findings, and recommendations. I have reviewed and his note and concur with his documentation 83 year old F with pmhx of interstitial lung disease, chronic hypoxic respiratory failure on home oxygen prn, hypertension comes in with progressive shortness of breath. She had a CTA of the chest that was negative for acute PE. She was managed on oxygen, IV steroids. Patient was seen by PT/OT and skilled for subacute care. On the day of discharge, patient was seen and examined. Feeling better. on her home 2L oxygen. Denied any chest pain or fever or dizziness. No acute events overnight. Physical Exam: Gen: Comfortable, not pale, not jaundiced, well hydrated CVS:HS I +II, regular, no murmurs RESP: CTA GI: BS present and normal, soft, nontender, no palpable organs EXT:No edema Labs reviewed. ASSESSMENT: 1. Acute exacerbation of NSIP 2. Hypokalemia, resolved 3. Hypertension - Physical Exam Vital Signs Temp Pulse Resp BP Pulse Ox 97.8 F 97 18 124/75 H 95 02/11/19 12:19 02/11/19 12:19 02/11/19 12:19 02/11/19 12:19 02/11/19 12:19 Oxygen Flow Rate (L/min) 4 Oxygen Delivery Method Nasal Cannula Weight: 51.2 kg Body Mass Index (BMI) 21.3 Intake and Output for Last 24 Hours 02/09/19 02/10/19 02/11/19 23:59 23:59 23:59 Intake Total 1080 / 1280 1250 / 1300 590 / 590 Balance 1080 / 1280 1250 / 1300 590 / 590 Microbiology Past 72 Hours 02/08/19 12:15 Blood Culture - Preliminary Blood Culture (Wb) - Anticubital Left No growth in 48 hours. Laboratory Tests Past 24 Hrs 02/11/19 05:42 Sodium 141 Potassium 3.8 Chloride 102 Carbon Dioxide 32.0 Anion Gap 7 BUN 36 H Creatinine 0.92 Estim Creat Clear Calc 34.35 Est GFR (MDRD) Af Amer 75 Est GFR (MDRD) Non-Af 62 BUN/Creatinine Ratio 39.1 H Glucose 131 H Calcium 9.5 Code Visit Inpatient E&M: 09317 Disch Hosp
== END 2019-02-11 14:53 | disposition skilled nursing facility (03) | DRG 189 ==
LOC: ED 15:04 → PCU 15:12
PROVIDERS: Physician Assistant; Admitting Provider Student in an Organized Health Care Education/Training Program; Emergency Provider Emergency Medicine; Family Provider Internal Medicine; PCP Internal Medicine; Referring Provider Student in an Organized Health Care Education/Training Program; Visit Provider Internal Medicine
DX: J96.21 Acute and chronic respiratory failure with hypoxia (principal); E87.6 Hypokalemia; Z66 Do not resuscitate; Z99.81 Dependence on supplemental oxygen; I27.20 Pulmonary hypertension, unspecified; I10 Essential (primary) hypertension; J84.10 Pulmonary fibrosis, unspecified; R53.81 Other malaise
CPT/HCPCS: 36415; 71275; 80048; 83880; 84484; 85025; 85379; 87040; 93005; 93306; 94640; 94667; 94668; 97110; 97116; 97162; 97166; 97530; 97535; 99251; 99283; Q9967; A4216; G0463

== ENCOUNTER 2019-02-11 15:00 | Inpatient (IN) | payer MEDICARE, OTHER, SELFPAY ==
[2019-02-08 15:29] VITALS: BMI 21.3
[2019-02-11 15:22] VITALS: BP 118/78; PULSE 91; RESP 16; TEMP 36.6; O2SAT 96
--- NOTE | 2019-02-11 15:26 | PCM.HP.STD ---
Problem List (1) Debility Status: Acute (2) Shortness of breath Status: Acute (3) Acute and chronic respiratory failure with hypoxia Status: Acute (4) Chronic recurrent sigmoid diverticulitis Status: Chronic (5) Interstitial lung disease Status: Chronic (6) Hypertension Status: Chronic History of Present Illness Date of Admission: 02/11/19 Chief Complaint: Here for rehabilitation, strengthening, prior to discharge home alone. The patient is a 83 year old Female with below past medical history presented to [facility] Emergency Department 02/08/2019 with shortness of breath. 02/08/2019 CTA chest showed pulmonary fibrosis, moderate sized hiatal hernia, NEGATIVE pulmonary embolism. Increasing shortness of breath x 2 months, mild dry cough. Dyspnea on exertion, Home oxygen increased to 3 liters, patient has history of interstitial lung disease. EKG sinus rhythm, rate 101, occasional premature ventricular contractions. WBC 12, Hemoglobin 14, Hematocrit 43, Platelet 317. K 3.1, Troponin < 0.15, BNP 28, D-dimer 1.46. Duoneb, Solu-Medrol given. 02/08/2019 Admit to Hospital. Aerosols, steroids for respiratory failure. Replete potassium. 02/09/2019 Dr. Woodruff recommended weaning oxygen as tolerated. Echo, Pulmonary toilet, sputum culture. Solu-Medrol, Aerosols, incentive spirometry. 02/10/2019 Echo EF 65%. Stage 1 diastolic dysfunction Bubble study negative for shunt. RVSP 48mm HG. Moderate pulmonary hypertension. Oxygen weaned to 2 liters. 5 day prednisone burst therapy. Aerosols discontinued by Dr. Woodruff. 02/11/2019 Admit to TCU with debility, here for rehabilitation, strengthening, prior to discharge home alone. 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) Interstitial lung disease (Chronic) Hypertension (Chronic) Allergies LOBSTER Allergy (Uncoded 02/08/19 11:34) Anaphylaxis Home Medications: Ambulatory Orders Medication Instructions Recorded Amlodipine [Norvasc] 10 mg PO DAILY 06/20/13 [place]-3 Fatty Acids/Fish Oil 1 cap PO DAILY 06/20/13 [[place] 3 Fish Oil Softgel] Ubidecarenone [Co Q-10] 100 mg PO DAILY 06/20/13 Cholecalciferol (Vitamin D3) 2,000 unit PO DAILY 02/08/19 [D3-2000] Lactobacillus Acidophilus 1 cap PO DAILY 02/08/19 [Acidophilus] Vitamin B Complex 1 ea PO DAILY 02/08/19 Prednisone 40 mg PO DAILY 02/11/19 Surgical History: colectomy - Laparoscopic sigmoid. Psychiatric History: No pertinent psych hx [employer] History: No pertinent [employer] history Lives: Alone Smoking Status: Never smoker Tobacco Use: Non-smoker Alcohol: None Drugs: None - *Family History Maternal History Items: Heart Disease Sibling History Items: Cancer - lung Paternal History Items: No pertinent history Review of Systems Constitutional: Reports: Weakness. Denies: Chills, Fever, Weight Change HEENT: Denies: Head Aches, Sinus Congestion, Sinus Drainage Cardiovascular: Denies: Chest Pain, Palpitations Respiratory: Denies: Cough, Shortness of breath at rest, Sputum production Gastrointestinal: Denies: Abdominal Pain, Nausea, Vomiting Genitourinary: Denies: Dysuria Musculoskeletal: Denies: Joint Pain, Joint Tenderness Skin: Denies: Rash, Wounds Neurological: Denies: Numbness, Tingling, Focal weakness Psychiatric: Denies: Anxiety, Depression, Homicidal Ideations, Suicidal Ideations Hematologic/ Lymphatic: Denies: Easy Bruising, Easy Bleeding VTE Information - Inpt Only VTE Present on Admission: No VTE Mechan Device Prophylaxis: Knee High KAN Hose VTE Pharm Prophylaxis ordered?: Yes Patient Problems: Active and Suspected Problems Debility (Acute) Shortness of breath (Acute) - Physical Exam General: Alert, Oriented x3, Cooperative HEENT: Atraumatic, PERRLA, EOMI, Normocephalic Neck: Supple, No JVD, Negative Carotid Bruits Lungs: Normal air movement, Wheezes Cardiovascular: Regular rate, No murmurs Abdomen: Bowel Sounds Present, Soft, Non Tender Extremities: No edema, Capillary Refill Less than 3 Seconds Skin: No rashes, No breakdown Musculoskeletal: No Tenderness to Palpation of Joints or Extremities Neurological: Cranial nerves II-XII grossly intact Psych/Mental Status: Normal Affect, Appropriate Vital Signs Temp Pulse Resp BP Pulse Ox 97.8 F 91 16 118/78 96 02/11/19 15:22 02/11/19 15:22 02/11/19 15:22 02/11/19 15:22 02/11/19 15:22 Oxygen Flow Rate (L/min) 2 Oxygen Delivery Method Nasal Cannula Body Mass Index (BMI) 21.3 Assessment/Plan All Active Problems Acute and chronic respiratory failure with hypoxia (Acute) Debility (Acute) Shortness of breath (Acute) Acute respiratory alkalosis (Acute) Hypokalemic alkalosis (Acute) Sensation of gaseous abdominal fullness (Acute) 83 year old female with below past medical history hospitalized for acute on chronic respiratory failure secondary to interstitial lung disease, admitted to TCU with debility, here for rehabilitation, strengthening, prior to discharge home alone. Debility - PT/OT. Pain - Tylenol 1000MG Q6H PRN mild pain. Bowel - Miralax 17GM daily, Senna/colace 1 tablet BID, Dulcolax 10MG daily PRN. Pneumonia vaccination - Administer Prevnar 13 and/or Pneumovax 23 as necessary. DVT prophylaxis - Lovenox 40MG SC daily. Hypertension - Amlodipine 10MG daily. Vitamin D deficiency - D3 2000IU daily. GI prophylaxis - Lactobacillus 1 tablet daily. Hyperlipidemia - Fish Oil 1 cap daily, CoQ-10 100MG daily. Interstitial lung disease exacerbation - Prednisone 40MG daily thru 02/16/2019. Vitamin B deficiency - Vitamin B complex 1 daily.
[2019-02-11 15:57] VITALS: BMI 20.2
[2019-02-11 16:02] VITALS: BMI 20.3
[2019-02-11] MEDS: Senna/Docusate Sodium 1 Tablet PO (16:45)
[2019-02-11] MEDS: Menthol/Lanolin/Calamine/Znox 113 GM Tube 1 APPLIC TOPICAL (20:41)
[2019-02-11] MEDS: Bisacodyl 5 MG Tablet 10 MG PO (21:01)
[2019-02-12 05:50] LABS: Absolute Lymphocyte Count 2.49 X10^3/uL (0.83-4.51); Absolute Neutrophil Count 9.2 X10^3/uL (2.0-7.7); Basophil# 0.03 X10^3/uL; Basophil% 0.2 % (0-1); Eosinophil# 0.18 X10^3/uL; Eosinophils% 1.3 % (0-5); Hematocrit 39.5 % (37-47); Hemoglobin 12.9 g/dL (12.0-15.0); Lymphocyte # 2.49 X10^3/ul (4.0); Lymphocyte % 17.7 % (19-41); Mean Corp Hgb Conc 32.7 g/dL (32-36); Mean Corpuscular Hgb 30.3 pg (27.0-32.0); Mean Corpuscular Volume 92.7 fL (81-99); Monocyte# 1.92 X10^3/uL; Monocyte% 13.6 % (0-10); NRBC Flagged by Analyzer 0 % (0-5); Neutrophil # 9.23 X10^3/uL (2.7-7.7); Neutrophil % 65.6 % (47-70); POSITIVE DIFFERENTIAL YES; Platelet Count 334 K/mm3 (150-450); RBC Distribution Width CV 13.2 % (11.6-14.6); RBC Distribution Width SD 44.8 fl (35.1-43.9); Red Blood Count 4.26 M/mm3 (4.2-5.4); White Blood Count 14.1 K/mm3 (4.4-11.0)
[2019-02-12 05:53] LABS: Differential Indicated SCAN CRITERIA MET
[2019-02-12 06:09] LABS: Anion Gap 6 (5-15); BUN 35 mg/dL (7-18); BUN/Creat Ratio 45.7 RATIO (10-20); Calcium,Total 9.1 mg/dL (8.5-10.1); Chloride 103 mmol/L (98-107); Creatinine, Serum 0.77 mg/dL (0.55-1.02); EST Glomerular Filtration Rate 76 mL/min (>60); Est Glom Filt Rate - Afr Amer 92 mL/min (>60); Glucose 91 mg/dL (74-106); Potassium 3.6 mmol/L (3.5-5.1); Sodium Level 144 mmol/L (136-145)
[2019-02-12] MEDS: Senna/Docusate Sodium 1 Tablet PO (06:11)
[2019-02-12] MEDS: amLODIPine 10 MG Tablet PO (06:11)
[2019-02-12] MEDS: Enoxaparin 40 MG/0.4 ML Syringe SC (06:11)
[2019-02-12] MEDS: Polyethylene Glycol 3350 17 GM PACKET PO (06:11)
[2019-02-12] MEDS: Menthol/Lanolin/Calamine/Znox 113 GM Tube 1 APPLIC TOPICAL ×2 (06:11→20:20)
[2019-02-12 06:32] LABS: Differential Comment SCANNED; Hypochromasia 2+
[2019-02-12 07:36] VITALS: O2SAT 94
[2019-02-12] MEDS: Vitamin B Comp W-C Capsule 1 CAP PO (08:02)
[2019-02-12] MEDS: predniSONE 20 MG Tablet 40 MG PO (08:03)
[2019-02-12 08:45] VITALS: O2SAT 97
[2019-02-12] MEDS: Tuberculin,Purif.prot.deriv. 50 TU/ML Vial 5 ML ID (11:32)
[2019-02-12 12:11] VITALS: PULSE 100
[2019-02-12 14:05] VITALS: O2SAT 97
--- NOTE | 2019-02-12 14:59 | PCM.PN.RX ---
<FrancisArabella M - Last Filed: 02/12/19 14:59> Progress Note - Pharmacy Subjective: TCU Admission Objective: Allergies LOBSTER Allergy (Uncoded 02/08/19 11:34) Anaphylaxis Current Medications Generic Name Dose Route Start Last Admin Trade Name Freq PRN Reason Stop Dose Admin Acetaminophen 1,000 mg 02/11/19 15:37 Tylenol PO Q6H PRN MILD PAIN (1-3/10) Amlodipine Besylate 10 mg 02/12/19 06:00 02/12/19 06:11 Norvasc PO 10 mg DAILY HALEY Administration Bisacodyl 10 mg 02/11/19 15:38 02/11/19 21:01 Dulcolax PO 10 mg DAILY PRN Administration Constipation Calamine/Phenol 1 applic 02/11/19 22:00 02/12/19 06:11 Calmoseptine Ointment TOPICAL 1 applicatio 0600,2200 HALEY Administration Protocol Cholecalciferol 2,000 unit 02/12/19 06:00 02/12/19 06:11 Vitamin D PO 2,000 unit DAILY HALEY Administration Enoxaparin Sodium 40 mg 02/12/19 06:00 02/12/19 06:11 Lovenox SC 40 mg DAILY@0600 HALEY Administration Lactobacillus Acidophilus 1 tablet 02/12/19 06:00 02/12/19 06:11 Acidophilus PO 1 tablet DAILY HALEY Administration Multivitamins 1 capsule 02/12/19 08:00 02/12/19 08:02 Allbee W/C Caplet, Thera B Comp/C PO 1 capsule DAILYCM HALEY Administration Nutritional Formula (Lactose Free) 120 ml 02/11/19 17:00 02/12/19 11:32 Ensure Enlive PO 120 ml 4X/DAY HALEY Administration Polyethylene Glycol 17 gm 02/12/19 06:00 02/12/19 06:11 Miralax PO 17 gm DAILY HALEY Administration Prednisone 40 mg 02/12/19 08:00 02/12/19 08:03 PO 02/17/19 08:01 40 mg DAILYCM HALEY Administration Senna/Docusate Sodium 1 tablet 02/11/19 18:00 02/12/19 06:11 Senokot-S, Enedina-Colace PO 1 tablet BID HALEY Administration Tuberculin PPD 5 tu 02/19/19 10:00 Tubersol, Aplisol, Ppd ID 02/19/19 10:01 X1 ONE Problem List Debility (Acute) Shortness of breath (Acute) Vital Signs Temp Pulse Resp BP Pulse Ox 97.8 F 100 16 118/78 97 02/11/19 15:22 02/12/19 12:11 02/11/19 15:22 02/11/19 15:22 02/12/19 08:45 Oxygen Flow Rate (L/min) 3 Oxygen Delivery Method Nasal Cannula Weight: 48.67 kg Body Mass Index (BMI) 20.2 Sodium 144 mmol/L (136-145) 02/12/19 05:10 Potassium 3.6 mmol/L (3.5-5.1) 02/12/19 05:10 Chloride 103 mmol/L (98-107) 02/12/19 05:10 Carbon Dioxide 35.0 mmol/L (21.0-32.0) H 02/12/19 05:10 6 (5-15) 02/12/19 05:10 BUN 35 mg/dL (7-18) H 02/12/19 05:10 0.77 mg/dL (0.55-1.02) 02/12/19 05:10 Est GFR (MDRD) Af Amer 92 mL/min (>60) 02/12/19 05:10 Est GFR (MDRD) Non-Af 76 mL/min (>60) 02/12/19 05:10 45.7 RATIO (10-20) H 02/12/19 05:10 Glucose 91 mg/dL (74-106) 02/12/19 05:10 Assessment/Plan: 1. Pain: Tylenol 1000mg PO Q6h PRN mild pain (1-3/10). Please continue to monitor for signs/symptoms of increased or decreased pain. 2. Hypertension: Amlodipine 10mg PO daily. Please continue to monitor blood pressure. 3. Interstitial lung disease exacerbation: Prednisone 40mg PO Daily with meals through 02/17/19. Please monitor for signs/symptoms of insomnia, agitation, restlessness, hyperglycemia. 4. DVT Prophylaxis: Lovenox 40mg SC daily. Please continue to monitor renal function and signs/symptoms of bleeding. *5. Vitamin D deficiency: Cholecalciferol 2000 units PO daily. No Vitamin D level on file. Please consider checking Vitamin D level annually. *6. Vitamin B deficiency: Vitamin B complex 1 capsule PO daily with meals. No vitamin B levels on file. Please consider checking Vitamin B levels annually. 7. GI Health/ Prophylaxis: Acidophilus 1 tablet PO daily. Please continue to monitor bowel movements. Psychotropic Medications: None Unnecessary Medications: None Bowel Regimen: Bisacodyl 10mg PO daily PRN, Miralax 17g PO daily, Senna/docusate 1 tablet PO BID. Please continue to monitor and document daily bowel movements. Date of Note:: 02/12/19 - Provider Comments Provider responsibility: Provider responsible to enter orders to implement recommendations <Giancarlo Berman Chi - Last Filed: 02/12/19 17:32> Progress Note - Pharmacy Subjective: [] Objective: Allergies LOBSTER Allergy (Uncoded 02/08/19 11:34) Anaphylaxis Current Medications Generic Name Dose Route Start Last Admin Trade Name Freq PRN Reason Stop Dose Admin Acetaminophen 1,000 mg 02/11/19 15:37 Tylenol PO Q6H PRN MILD PAIN (1-3/10) Amlodipine Besylate 10 mg 02/12/19 06:00 02/12/19 06:11 Norvasc PO 10 mg DAILY HALEY Administration Bisacodyl 10 mg 02/11/19 15:38 02/11/19 21:01 Dulcolax PO 10 mg DAILY PRN Administration Constipation Calamine/Phenol 1 applic 02/11/19 22:00 02/12/19 06:11 Calmoseptine Ointment TOPICAL 1 applicatio 0600,2200 HALEY Administration Protocol Cholecalciferol 2,000 unit 02/12/19 06:00 02/12/19 06:11 Vitamin D PO 2,000 unit DAILY HALEY Administration Enoxaparin Sodium 40 mg 02/12/19 06:00 02/12/19 06:11 Lovenox SC 40 mg DAILY@0600 HALEY Administration Lactobacillus Acidophilus 1 tablet 02/12/19 06:00 02/12/19 06:11 Acidophilus PO 1 tablet DAILY HALEY Administration Multivitamins 1 capsule 02/12/19 08:00 02/12/19 08:02 Allbee W/C Caplet, Thera B Comp/C PO 1 capsule DAILYCM HALEY Administration Nutritional Formula (Lactose Free) 120 ml 02/11/19 17:00 02/12/19 16:17 Ensure Enlive PO 120 ml 4X/DAY HALEY Administration Polyethylene Glycol 17 gm 02/12/19 06:00 02/12/19 06:11 Miralax PO 17 gm DAILY HALEY Administration Prednisone 40 mg 02/12/19 08:00 02/12/19 08:03 PO 02/17/19 08:01 40 mg DAILYCM HALEY Administration Senna/Docusate Sodium 1 tablet 02/11/19 18:00 02/12/19 16:17 Senokot-S, Enedina-Colace PO Not Given BID HALEY Tuberculin PPD 5 tu 02/19/19 10:00 Tubersol, Aplisol, Ppd ID 02/19/19 10:01 X1 ONE Problem List Debility (Acute) Shortness of breath (Acute) Vital Signs Temp Pulse Resp BP Pulse Ox 97.8 F 94 18 130/77 H 99 02/12/19 16:00 02/12/19 16:00 02/12/19 16:00 02/12/19 16:00 02/12/19 16:00 Oxygen Flow Rate (L/min) 4 Oxygen Delivery Method Nasal Cannula Weight: 48.67 kg Body Mass Index (BMI) 20.2 Sodium 144 mmol/L (136-145) 02/12/19 05:10 Potassium 3.6 mmol/L (3.5-5.1) 02/12/19 05:10 Chloride 103 mmol/L (98-107) 02/12/19 05:10 Carbon Dioxide 35.0 mmol/L (21.0-32.0) H 02/12/19 05:10 6 (5-15) 02/12/19 05:10 BUN 35 mg/dL (7-18) H 02/12/19 05:10 0.77 mg/dL (0.55-1.02) 02/12/19 05:10 Est GFR (MDRD) Af Amer 92 mL/min (>60) 02/12/19 05:10 Est GFR (MDRD) Non-Af 76 mL/min (>60) 02/12/19 05:10 45.7 RATIO (10-20) H 02/12/19 05:10 Glucose 91 mg/dL (74-106) 02/12/19 05:10 Assessment/Plan: Psychotropic Medications: Unnecessary Medications: Bowel Regimen: - Provider Comments Provider responsibility: Provider responsible to enter orders to implement recommendations Provider Comments to Recommendations by Pharmacy: Agree
[2019-02-12 16:00] VITALS: BP 130/77; PULSE 94; RESP 18; TEMP 36.6; O2SAT 99
[2019-02-13] MEDS: Enoxaparin 40 MG/0.4 ML Syringe SC (06:10)
[2019-02-13] MEDS: Senna/Docusate Sodium 1 Tablet PO ×2 (06:10→17:19)
[2019-02-13] MEDS: amLODIPine 10 MG Tablet PO (06:10)
[2019-02-13] MEDS: Polyethylene Glycol 3350 17 GM PACKET PO (06:11)
[2019-02-13] MEDS: Menthol/Lanolin/Calamine/Znox 113 GM Tube 1 APPLIC TOPICAL ×2 (06:14→20:49)
[2019-02-13 07:38] VITALS: O2SAT 95
[2019-02-13] MEDS: predniSONE 20 MG Tablet 40 MG PO (08:05)
[2019-02-13] MEDS: Vitamin B Comp W-C Capsule 1 CAP PO (08:05)
[2019-02-13 08:31] LABS: Vitamin B12 > 2000 pg/mL (211-911)
[2019-02-13 15:05] VITALS: BP 115/69; PULSE 92; RESP 16; TEMP 36.7; O2SAT 98
[2019-02-13 15:32] LABS: Pathologist Review Reviewed
--- NOTE | 2019-02-13 16:54 | CHAPLAIN ---
Type of Pastoral Visit _x__ Initial Visit ___ Follow-up Visit ___ On-call Visit ___ General Patient Visit ___ Spiritual Assessment ___ Family Conference ___ Bereavement ___ Rapid Response ___ Code Blue ___ Other (describe below) Pastoral Care Referral From _x__ Patient ___ Family ___ Nurse ___ Physician ___ Narcotics And Vice Detective ___ Cashier Credit ___ Other (describe below) Sacrament/Intervention _x__ Active listening ___ Anointing ___ Pentecostalism ___ Bereavement ___ Communion _x__ Holly exploration ___ ___ Life review _x__ Prayer ___ Reconciliation ___ Sacrament of Sick _x__ Supportive presence ___ Wedding ___ Other (describe below) Pastoral Comments met with this patient last week in [facility] and had a more in depth conversation
[2019-02-14] MEDS: Polyethylene Glycol 3350 17 GM PACKET PO (04:53)
[2019-02-14] MEDS: Enoxaparin 40 MG/0.4 ML Syringe SC (04:55)
[2019-02-14] MEDS: Senna/Docusate Sodium 1 Tablet PO ×2 (04:55→16:58)
[2019-02-14] MEDS: amLODIPine 10 MG Tablet PO (04:55)
[2019-02-14] MEDS: Menthol/Lanolin/Calamine/Znox 113 GM Tube 1 APPLIC TOPICAL ×2 (04:56→20:07)
[2019-02-14 08:16] VITALS: O2SAT 95
[2019-02-14] MEDS: Vitamin B Comp W-C Capsule 1 CAP PO (08:22)
[2019-02-14] MEDS: predniSONE 20 MG Tablet 40 MG PO (08:22)
--- NOTE | 2019-02-14 12:15 | CASEMGMT ---
Social Work IDT met with patient for care plan meeting. Discussed patient's progress in therapy. Supervision to SBA for bed mobility and transfers. CGA toileting. Min assist for lower body dressing and bathing. Pt has many stairs to get inside the home and to her bedroom and bathroom on the 2nd floor - will work on stairs with therapy. Pt does get SOB and increased heart rate with exertion. Pt's son mentioned trying to get a stair lift when ready to DC. Will continue to follow for discharge plans. Lary Escudero, OUTPATIENT CASE MANAGER HYDROTEL OPERATOR
[2019-02-14 13:58] VITALS: PULSE 100
[2019-02-14 15:15] VITALS: BP 112/71; PULSE 91; RESP 20; TEMP 36.7; O2SAT 98
[2019-02-15] MEDS: Enoxaparin 40 MG/0.4 ML Syringe SC (05:19)
[2019-02-15] MEDS: Polyethylene Glycol 3350 17 GM PACKET PO (05:19)
[2019-02-15] MEDS: Senna/Docusate Sodium 1 Tablet PO ×2 (05:20→17:04)
[2019-02-15] MEDS: amLODIPine 10 MG Tablet PO (05:20)
[2019-02-15] MEDS: Menthol/Lanolin/Calamine/Znox 113 GM Tube 1 APPLIC TOPICAL ×2 (05:20→20:16)
[2019-02-15] MEDS: predniSONE 20 MG Tablet 40 MG PO (07:42)
[2019-02-15] MEDS: Vitamin B Comp W-C Capsule 1 CAP PO (07:42)
--- NOTE | 2019-02-15 10:30 | MDS.RN ---
Pain interview for lul 02/18/19 completed.
[2019-02-15 16:00] VITALS: BP 102/62; PULSE 96; RESP 18; TEMP 36.6; O2SAT 97
[2019-02-16] MEDS: Enoxaparin 40 MG/0.4 ML Syringe SC (05:58)
[2019-02-16] MEDS: Polyethylene Glycol 3350 17 GM PACKET PO (05:58)
[2019-02-16] MEDS: Senna/Docusate Sodium 1 Tablet PO ×2 (05:58→16:38)
[2019-02-16] MEDS: amLODIPine 10 MG Tablet PO (05:58)
[2019-02-16] MEDS: Menthol/Lanolin/Calamine/Znox 113 GM Tube 1 APPLIC TOPICAL ×2 (06:00→20:14)
[2019-02-16 07:00] VITALS: O2SAT 96
[2019-02-16] MEDS: predniSONE 20 MG Tablet 40 MG PO (07:42)
[2019-02-16] MEDS: Vitamin B Comp W-C Capsule 1 CAP PO (07:42)
--- NOTE | 2019-02-16 11:10 | CASEMGMT ---
Social Work BIMS and PHQ-9 completed for MDS assessment. Lary Escudero, WHEAT COMBINE DRIVER COMMERCIAL PLUMBER
[2019-02-16 12:34] LABS: Vitamin D 1,25-Dihydroxy 73.2 pg/mL (19.9-79.3)
[2019-02-16 12:36] LABS: Vitamin B1, Thiamine 212.5 nmol/L (66.5-200.0)
[2019-02-16 14:14] VITALS: BP 124/71; PULSE 97; RESP 16; TEMP 37; O2SAT 95
[2019-02-17] MEDS: Enoxaparin 40 MG/0.4 ML Syringe SC (06:01)
[2019-02-17] MEDS: Senna/Docusate Sodium 1 Tablet PO ×2 (06:01→17:36)
[2019-02-17] MEDS: amLODIPine 10 MG Tablet PO (06:01)
[2019-02-17] MEDS: Polyethylene Glycol 3350 17 GM PACKET PO (06:01)
[2019-02-17] MEDS: Menthol/Lanolin/Calamine/Znox 113 GM Tube 1 APPLIC TOPICAL ×2 (06:05→20:10)
[2019-02-17 06:50] VITALS: O2SAT 95
[2019-02-17 06:56] VITALS: O2SAT 95
[2019-02-17] MEDS: predniSONE 20 MG Tablet 40 MG PO (08:08)
[2019-02-17] MEDS: Vitamin B Comp W-C Capsule 1 CAP PO (08:08)
[2019-02-17 15:16] VITALS: BP 119/74; PULSE 95; RESP 18; TEMP 36.7; O2SAT 95
[2019-02-18] MEDS: Polyethylene Glycol 3350 17 GM PACKET PO (06:09)
[2019-02-18] MEDS: Senna/Docusate Sodium 1 Tablet PO ×2 (06:09→16:46)
[2019-02-18] MEDS: Enoxaparin 40 MG/0.4 ML Syringe SC (06:09)
[2019-02-18] MEDS: amLODIPine 10 MG Tablet PO (06:09)
[2019-02-18] MEDS: Menthol/Lanolin/Calamine/Znox 113 GM Tube 1 APPLIC TOPICAL ×2 (06:12→20:12)
[2019-02-18] MEDS: Vitamin B Comp W-C Capsule 1 CAP PO (08:06)
[2019-02-18 13:26] VITALS: O2SAT 95
[2019-02-18 16:00] VITALS: BP 106/71; PULSE 86; RESP 20; TEMP 36.8; O2SAT 95
[2019-02-19 05:41] LABS: Absolute Lymphocyte Count 2.13 X10^3/uL (0.83-4.51); Absolute Neutrophil Count 10.3 X10^3/uL (2.0-7.7); Basophil# 0.08 X10^3/uL; Basophil% 0.5 % (0-1); Eosinophil# 0.99 X10^3/uL; Eosinophils% 6.3 % (0-5); Hematocrit 40.9 % (37-47); Hemoglobin 13.1 g/dL (12.0-15.0); Lymphocyte # 2.13 X10^3/ul (4.0); Lymphocyte % 13.6 % (19-41); Mean Corpuscular Hgb 30.2 pg (27.0-32.0); Mean Corpuscular Volume 94.2 fL (81-99); Mean Platelet Vol. 11.5 fl (6.2-12.0); Monocyte# 1.75 X10^3/uL; Monocyte% 11.1 % (0-10); NRBC Flagged by Analyzer 0 % (0-5); Neutrophil # 10.29 X10^3/uL (2.7-7.7); Neutrophil % 65.5 % (47-70); POSITIVE DIFFERENTIAL YES; Platelet Count 223 K/mm3 (150-450); RBC Distribution Width CV 13.9 % (11.6-14.6); RBC Distribution Width SD 48.1 fl (35.1-43.9); Red Blood Count 4.34 M/mm3 (4.2-5.4); White Blood Count 15.7 K/mm3 (4.4-11.0)
[2019-02-19] MEDS: Polyethylene Glycol 3350 17 GM PACKET PO (05:56)
[2019-02-19 05:59] LABS: Anion Gap 2 (5-15); BUN 30 mg/dL (7-18); BUN/Creat Ratio 32.5 RATIO (10-20); Calcium,Total 9.8 mg/dL (8.5-10.1); Chloride 100 mmol/L (98-107); Creatinine, Serum 0.92 mg/dL (0.55-1.02); EST Glomerular Filtration Rate 62 mL/min (>60); Est Glom Filt Rate - Afr Amer 74 mL/min (>60); Estimated Creatinine Clearance 34.35 ml/min; Glucose 126 mg/dL (74-106); Potassium 3.8 mmol/L (3.5-5.1); Sodium Level 141 mmol/L (136-145)
[2019-02-19] MEDS: amLODIPine 10 MG Tablet PO (05:59)
[2019-02-19] MEDS: Menthol/Lanolin/Calamine/Znox 113 GM Tube 1 APPLIC TOPICAL ×2 (05:59→20:03)
[2019-02-19] MEDS: Senna/Docusate Sodium 1 Tablet PO ×2 (05:59→16:50)
[2019-02-19] MEDS: Enoxaparin 40 MG/0.4 ML Syringe SC (06:00)
[2019-02-19 06:44] LABS: Differential Indicated SCAN CRITERIA MET
[2019-02-19 07:05] LABS: Differential Comment SCANNED
[2019-02-19 07:16] VITALS: O2SAT 94
[2019-02-19] MEDS: Vitamin B Comp W-C Capsule 1 CAP PO (08:03)
[2019-02-19] MEDS: Tuberculin,Purif.prot.deriv. 50 TU/ML Vial 5 ML ID (10:46)
--- NOTE | 2019-02-19 11:27 | CASEMGMT ---
Social Work SW met with pt and son and pt requesting to return home tomorrow. Pt son will be staying with pt and is able to assist as needed. Therapy is recommending home health PT/OT/MANAGER COMPETITIVE INTELLIGENCE and pt is agreeable and would like [facility]. Pt has home O2 and pt will need a rollator walker. Pt son stating they have moved bedroom to the first floor so pt will not have steps. Referral made to Kamilla at [facility] for PT/OT/MANAGER COMPETITIVE INTELLIGENCE. VM left. Will fax script for rollator to [facility] when it is obtained. Plan: home with son 02/20/19 and [facility] PT/OT/MANAGER COMPETITIVE INTELLIGENCE LATESHA Mills
[2019-02-19 12:31] LABS: Pathologist Review Reviewed
[2019-02-19 15:51] VITALS: BP 138/90; PULSE 97; RESP 18; TEMP 37.1; O2SAT 99
--- NOTE | 2019-02-19 19:25 | DCINST_ITS ---
- Discharge Diagnoses Current Active Problems: Current Active and Chronic Problems Debility (Acute) Shortness of breath (Acute) You will use the following diet at home:: No restrictions, Regular Your food should be the consistency of: Regular Your liquids should be the consistency of: Regular/Thin Discharge Activity: Return to Normal Activity, May Shower, Use Walker Weight Bearing Status: Weight bearing as tolerated Call your doctor if you observe: Fever of 101 or Higher, Inability to urinate, Inability to have a bowel movement, Shortness of breath, Chest pain, Uncontrolled pain Allergies/Adverse Reactions: Allergies LOBSTER Allergy (Uncoded 02/08/19 11:34) Anaphylaxis Medications to take at Discharge Amlodipine [Norvasc] 10 mg PO DAILY 06/20/13 [place]-3 Fatty Acids/Fish Oil [[place] 3 Fish Oil Softgel] 1 cap PO DAILY 06/20/13 Ubidecarenone [Co Q-10] 100 mg PO DAILY 06/20/13 Cholecalciferol (Vitamin D3) [D3-2000] 2,000 unit PO DAILY 02/08/19 Lactobacillus Acidophilus [Acidophilus] 1 cap PO DAILY 02/08/19 Vitamin B Complex 1 ea PO DAILY 02/08/19 Acetaminophen [Tylenol] 1,000 mg PO Q6H PRN tablet 02/19/19 Menthol/Lanolin/Calamine/Znox [Calmoseptine Ointment] 1 applic TOPICAL 0600,2200 tube 02/19/19 Primary Care Physician: Rakel Franco MD [Primary Care Provider] - Please follow up with your Primary Care Physician in: 1 week. Test Results: Test results from this visit will be discussed in further detail at your follow- up appointment, if applicable. Please Follow Up With: Rakel Franco MD Proposed Discharge Date: 02/20/19
--- NOTE | 2019-02-19 19:26 | PCM.DC.SUM ---
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) Interstitial lung disease (Chronic) Hypertension (Chronic) Hospital Course and Treatment Imaging Results: 02/11/19 15:16 Diet: Regular Diet Type of Dietary Supplement:: ensure pudding/magic cup Diet Comments: VANILLA ENSURE ONLY Labs (Last 48 Hours) 02/19/19 02/19/19 05:00 05:00 WBC 15.7 H RBC 4.34 Hgb 13.1 Hct 40.9 MCV 94.2 MCH 30.2 MCHC 32.0 RDW Std Deviation 48.1 H RDW Coeff of Paz 13.9 Plt Count 223 MPV 11.5 Immature Gran % (Auto) 3.000 H Neut % (Auto) 65.5 Lymph % (Auto) 13.6 L [place] % (Auto) 11.1 H Eos % (Auto) 6.3 H Baso % (Auto) 0.5 Absolute Neuts (auto) 10.3 H Absolute Lymphs (auto) 2.13 Nucleated RBC % 0 Differential Comment SCANNED Diff Path Review Reviewed Sodium 141 Potassium 3.8 Chloride 100 Carbon Dioxide 39.0 H Anion Gap 2 L BUN 30 H Creatinine 0.92 Estim Creat Clear Calc 34.35 Est GFR (MDRD) Af Amer 74 Est GFR (MDRD) Non-Af 62 BUN/Creatinine Ratio 32.5 H Glucose 126 H Calcium 9.8 Operations: None, - - Laparoscopic sigmoid colectomy with mobilization of the splenic flexure Procedures: None Summary of Care Provided: The patient is a 83 year old Female with below past medical history hospitalized for acute on chronic respiratory failure secondary to interstitial lung disease, admitted to TCU with debility, here for rehabilitation, strengthening, prior to discharge home with son. Discharge home with son, [facility] for PT/OT/ENGRAVER HAND HARD METALS. Patient Problems: Active and Suspected Problems Debility (Acute) Shortness of breath (Acute) - Physical Exam Vital Signs Temp Pulse Resp BP Pulse Ox 98.8 F 97 18 138/90 H 99 02/19/19 15:51 02/19/19 15:51 02/19/19 15:51 02/19/19 15:51 02/19/19 15:51 Oxygen Flow Rate (L/min) 3 Oxygen Delivery Method Nasal Cannula Weight: 47.826 kg Body Mass Index (BMI) 20.2 Intake and Output for Last 24 Hours 02/17/19 02/18/19 02/19/19 23:59 23:59 23:59 Intake Total 830 / 830 600 / 600 280 / 280 Balance 830 / 830 600 / 600 280 / 280 Laboratory Tests Past 24 Hrs 02/19/19 02/19/19 05:00 05:00 WBC 15.7 H RBC 4.34 Hgb 13.1 Hct 40.9 MCV 94.2 MCH 30.2 MCHC 32.0 RDW Std Deviation 48.1 H RDW Coeff of Paz 13.9 Plt Count 223 MPV 11.5 Immature Gran % (Auto) 3.000 H Neut % (Auto) 65.5 Lymph % (Auto) 13.6 L [place] % (Auto) 11.1 H Eos % (Auto) 6.3 H Baso % (Auto) 0.5 Absolute Neuts (auto) 10.3 H Absolute Lymphs (auto) 2.13 Nucleated RBC % 0 Differential Comment SCANNED Diff Path Review Reviewed Sodium 141 Potassium 3.8 Chloride 100 Carbon Dioxide 39.0 H Anion Gap 2 L BUN 30 H Creatinine 0.92 Estim Creat Clear Calc 34.35 Est GFR (MDRD) Af Amer 74 Est GFR (MDRD) Non-Af 62 BUN/Creatinine Ratio 32.5 H Glucose 126 H Calcium 9.8 Discharge Diet: No Restrictions Discharge Activity: Return to Normal Activity, May Shower, Use Walker Weight Bearing Status: Weight bearing as tolerated Call your doctor if you observe: Fever of 101 or Higher, Inability to urinate, Inability to have a bowel movement, Shortness of breath, Chest pain, Uncontrolled pain Home Medications: Medications to take at Discharge Amlodipine [Norvasc] 10 mg PO DAILY 06/20/13 [place]-3 Fatty Acids/Fish Oil [[place] 3 Fish Oil Softgel] 1 cap PO DAILY 06/20/13 Ubidecarenone [Co Q-10] 100 mg PO DAILY 06/20/13 Cholecalciferol (Vitamin D3) [D3-2000] 2,000 unit PO DAILY 02/08/19 Lactobacillus Acidophilus [Acidophilus] 1 cap PO DAILY 02/08/19 Vitamin B Complex 1 ea PO DAILY 02/08/19 Acetaminophen [Tylenol] 1,000 mg PO Q6H PRN tablet 02/19/19 Menthol/Lanolin/Calamine/Znox [Calmoseptine Ointment] 1 applic TOPICAL 0600,2200 tube 02/19/19 Primary Care Physician: Rakel Franco MD [Primary Care Provider] - Please follow up with your Primary Care Physician in: 1 week. Please Follow Up With: Rakel Franco MD Disposition: Home with Home Health Minutes spent on discharge:: 35 Patient Condition:: Stable Medical Necessity - Tobacco Use Smoking Status: Never smoker Tobacco Use: Non-smoker Meaningful Use Info Meaningful Use Diagnoses (Choose all that apply): None applicable
--- NOTE | 2019-02-19 19:28 | PCM.PN.HH ---
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) Interstitial lung disease (Chronic) Hypertension (Chronic) - Requirements and Reasons Disciplines Needed/Ordered: Physical Therapy Reason for Disciplines: Disease Specific Monitoring/education, Medication Management/Knowledge Deficit, Gait Training, Stair Training, Fall Prevention, Home Safety/Equipment Instruction, Balance and/or Posture Training, Transfer Training Related To: Change in Medical Treatment Plan, Limited/Poor Endurance, Shortness of Breath with Activity, Physical Impairments, Unsteady Gait/Balance, Fall Risk Patient is unable to leave the home: Without Aid of Supportive Devices (crutches, cane, wheelchair, walker), Without the assistance of another person - Additional Disciplines Additional Disciplines Needed/Ordered: Occupational Therapy, Home Health Aide
[2019-02-20] MEDS: Polyethylene Glycol 3350 17 GM PACKET PO (05:53)
[2019-02-20] MEDS: Enoxaparin 40 MG/0.4 ML Syringe SC (05:54)
[2019-02-20] MEDS: amLODIPine 10 MG Tablet PO (05:54)
[2019-02-20] MEDS: Senna/Docusate Sodium 1 Tablet PO (05:54)
[2019-02-20] MEDS: Menthol/Lanolin/Calamine/Znox 113 GM Tube 1 APPLIC TOPICAL (05:56)
[2019-02-20 07:10] VITALS: O2SAT 98
[2019-02-20] MEDS: Vitamin B Comp W-C Capsule 1 CAP PO (08:02)
--- NOTE | 2019-02-20 10:14 | CASEMGMT ---
Social Work Return call from [facility] and they are able to accept pt. Phone call to [facility] and they do not have a rollator available but can ship one to pt [facility]. Met with pt and son and they are understanding and agreeable. No further d/c needs. LATESHA Mills
[2019-02-20 11:10] VITALS: BP 133/91; PULSE 87; RESP 16; TEMP 36.6; O2SAT 95
--- NOTE | 2019-02-21 09:33 | MDS.RN ---
Information for the mds was obtained from review of the clinical record, interview of resident, staff, and direct observation of resident's care.
== END 2019-02-20 10:15 | disposition home health service (06) | DRG 948 ==
PROVIDERS: Admitting Provider Family Medicine Geriatric Medicine; Family Provider Internal Medicine; PCP Internal Medicine; Visit Provider Family Medicine Geriatric Medicine
DX: R53.81 Other malaise (principal); J96.10 Chronic respiratory failure, unspecified whether with hypoxia or hypercapnia; J84.9 Interstitial pulmonary disease, unspecified; K57.32 Diverticulitis of large intestine without perforation or abscess without bleeding; I10 Essential (primary) hypertension; E78.5 Hyperlipidemia, unspecified; E55.9 Vitamin D deficiency, unspecified; E53.9 Vitamin B deficiency, unspecified
CPT/HCPCS: 36415; 80048; 82607; 82652; 84425; 85025; 94668; 97110; 97116; 97162; 97166; 97530; 97535; 97802

== ENCOUNTER 2019-02-26 09:54 | Inpatient (IN) | payer MEDICARE, OTHER, SELFPAY ==
[2019-02-26] VITALS (15 sets, daily range): BP systolic 101–121; BP diastolic 64–81; PULSE 85–111; RESP 18–40; TEMP 36.7–37.1; O2SAT 93–99; BMI 20.4; BMI 20.2
--- NOTE | 2019-02-26 09:57 | RAD_ITS ---
STUDY: X-RAY CHEST REASON FOR EXAM: Female, 83 years old. Shortness of breath. TECHNIQUE: Single AP portable view of the chest. COMPARISON: Comparison is made with prior examination dated December 31, 2015. FINDINGS: EKG electrodes are seen. Since prior examination, there has been progressive increased interstitial markings in both lungs with areas of confluence worse in the left lung. Findings are suggestive of progressive interstitial fibrosis. Mild superimposed CHF cannot be excluded. Blunting of the left costophrenic angle. There is mild cardiac enlargement. Normal mediastinum and nicolás. Normal visualized pulmonary arteries. There is atherosclerotic calcification of the aortic arch with tortuosity. There are degenerative changes of the visualized thoracic spine. Normal visualized ribs, clavicles, and shoulders. There is no demonstrated abnormality of the visualized soft tissue structures of the upper abdomen. RAD/Chest 1 View (Portable) IMPRESSION: Progressive increased interstitial markings with areas of confluence in both lungs worse in the left lung suggestive of progressive chronic interstitial fibrosis and possible mild degree of superimposed CHF. Electronically Signed: Marino Anthony, at 10:37 EDT , Service support ,
--- NOTE | 2019-02-26 09:57 | EKG12_ITS ---
Test Reason : SOB Blood Pressure : / mmHG Vent. Rate : 106 BPM Atrial Rate : 106 BPM P-R Int : 116 ms QRS Dur : 090 ms QT Int : 322 ms P-R-T Axes : 027 -19 -06 degrees QTc Int : 427 ms Sinus tachycardia Leftward axis Poor R-Wave Progression Confirmed by CELINA POWLEL, KIEL ([id number]), news copy editor NANI HARKINS ([id number]) on 02/28/2019 11:51:11 AM Referred By: Dotty Pacheco Confirmed By:KIEL PATRICK MD
--- NOTE | 2019-02-26 10:01 | ED.VIS.GEN ---
History of Present Illness Chief Complaint: Shortness of Breath Informant: Patient Onset: Days - 2 Context: Gradual Onset Timing: Continuous Current Severity: Severe Maximum Severity: Severe Narrative: Patient presents with shortness of breath. She has interstitial fibrosis, she has been worsened over the past 2 to 3 days. She has no fever chills, she has no productive cough. She denies any chest pain. She has no back pain or tearing sensation. She is on home oxygen, she was significantly short of breath, was found to be hypoxic in the 70s by EMS. Past Medical History - Allergies and Home Meds Allergies/Adverse Reactions: Allergies LOBSTER Allergy (Uncoded 02/26/19 10:01) Anaphylaxis Primary Care Physician: Rakel Franco MD [Primary Care Provider] - Past Medical History: - - Multiple medical problems reviewed, see the rest of the [employer] system, pulmonary fibrosis as in HPI Surgical History: colectomy - Laparoscopic sigmoid. Smoking Status: Never smoker - Family History Maternal Family History: Reports: Heart Disease Sibling Family History: Reports: Cancer - lung Paternal Family History: Reports: No pertinent history Review of Systems All systems negative except as indicated General: Denies: Fever Cardiovascular: Denies: Chest pain Respiratory: Reports: Dyspnea, Cough. Denies: Sputum Gastrointestinal: Denies: Abdominal pain, Nausea Musculoskeletal: Denies: Myalgias, Arthralgias Neurological: Denies: Headache, Weakness Endocrine: Denies: Polyuria Hematologic: Reports: Easy bruising Allergy: Reports: Uticaria Physical Exam Vital Signs/Narrative: Vital Signs Temp Pulse Resp BP Pulse Ox 02/26/19 09:55 98.4 F 109 H 40 H 120/78 98 Inital Vital Signs reviewed: Yes General: - - Patient is on a nonrebreather pulse ox is in the mid 90s, she is communicating in 2-3 word sentences Eyes: Perrl ENT: Dry mucous membranes Neck: Supple Cardiovascular: Tachycardia Respiratory: - - Coarse and diminished bilateral breath sounds very scant wheezing, speaks in 2-3 word sentences Abdomen: Soft, Nontender Back: Nontender, Normal Inspection Extremities: Nontender, No edema Skin: Normal color Neurological: Alert, Oriented x3, Normal Strength, Normal Sensation Psychological: Normal affect Diagnostic/Tx/Re-eval - Rhythm Strip Rhythm Strip: Sinus Rhythm Rate: 106 Ectopy: None - Medical Decision Making She does not have pneumonia on x-ray. Her sputum is unchanged in color consistency or frequency. She does not meet criteria for pneumonia. Antibiotics were not given. Lactic acid normal. Patient will be admitted. She is on a Ventimask. I will admit her. Solu-Medrol, duo nebs were given. Disposition admit in guarded condition ED Disposition - Plan for ED Patient: Diagnosis: Hypoxia, Pulmonary fibrosis Referrals: Rakel Franco MD [Primary Care Provider] -
[2019-02-26] MEDS: Ipratropium/Albuterol Sulfate 3 ML AMPUL.NEB INHALATION (10:15)
[2019-02-26 10:23] LABS: Absolute Lymphocyte Count 1.98 X10^3/uL (0.83-4.51); Absolute Neutrophil Count 11.2 X10^3/uL (2.0-7.7); Basophil# 0.08 X10^3/uL; Basophil% 0.5 % (0-1); Differential Indicated SCAN CRITERIA MET; Eosinophil# 0.43 X10^3/uL; Eosinophils% 2.7 % (0-5); Hematocrit 39.6 % (37-47); Hemoglobin 13.2 g/dL (12.0-15.0); Lymphocyte # 1.98 X10^3/ul (4.0); Lymphocyte % 12.4 % (19-41); Mean Corp Hgb Conc 33.3 g/dL (32-36); Mean Corpuscular Hgb 30.3 pg (27.0-32.0); Mean Platelet Vol. 11.3 fl (6.2-12.0); Monocyte# 2.16 X10^3/uL; Monocyte% 13.5 % (0-10); NRBC Flagged by Analyzer 0 % (0-5); Neutrophil # 11.15 X10^3/uL (2.7-7.7); Neutrophil % 69.8 % (47-70); POSITIVE DIFFERENTIAL YES; Platelet Count 238 K/mm3 (150-450); RBC Distribution Width CV 13.4 % (11.6-14.6); RBC Distribution Width SD 45.1 fl (35.1-43.9); Red Blood Count 4.35 M/mm3 (4.2-5.4)
[2019-02-26] MEDS: MethylPREDNISolone 125 MG/2 ML Vial IV (10:24)
[2019-02-26 10:42] LABS: Anion Gap 9 (5-15); BUN 17 mg/dL (7-18); BUN/Creat Ratio 20.6 RATIO (10-20); Calcium,Total 9.4 mg/dL (8.5-10.1); Chloride 104 mmol/L (98-107); Creatinine, Serum 0.83 mg/dL (0.55-1.02); EST Glomerular Filtration Rate 70 mL/min (>60); Est Glom Filt Rate - Afr Amer 85 mL/min (>60); Estimated Creatinine Clearance 38.07 ml/min; Glucose 154 mg/dL (74-106); Potassium 2.8 mmol/L (3.5-5.1); Sodium Level 143 mmol/L (136-145)
[2019-02-26 10:48] LABS: Platelet Estimate ADEQUATE (ADEQ); Reactive Lymphocyte RARE; Red Cell Morphology NORM C+C NORMAL (NORM C&C)
[2019-02-26 11:26] LABS: Lactic Acid 1.9 mmol/L (0.4-2.0)
--- NOTE | 2019-02-26 12:49 | PCM.HP.STD ---
Problem List (1) Acute and chronic respiratory failure with hypoxia Status: Acute (2) Hypokalemia Status: Acute (3) Pulmonary fibrosis Status: Chronic (4) Chronic restrictive lung disease Status: Chronic (5) History of Clostridium difficile colitis Status: Chronic (6) Interstitial lung disease Status: Chronic (7) Hypertension Status: Chronic Qualifiers: Hypertension type: essential hypertension Qualified Code(s): I10 - Essential (primary) hypertension History of Present Illness Date of Admission: 02/26/19 Chief Complaint: Progressively worsening dyspnea, fatigue, hypoxia. The patient is a 83 y/o F w/ PMHx: Chronic hypoxic respiratory failure secondary to chronic restrictive lung disease/pulmonary fibrosis following with [facility] Dr. Higginbotham, hypertension, history of prior C. difficile, recently admitted admitted to the [facility] on 02/08/19, discharged on 02/11/19 to TCU w/ eventual discharge to home on 02/19/19 treated for acute on chronic combined respiratory failure secondary to worsening underlying interstitial lung disease as well as possible bronchiectasis with following progressively worsening fatigue, dyspnea, worse with any exertional effort but even at rest hypoxic over the last 1 week since discharge from skilled facility with confirmed evaluation of her oxygenation by her healthcare company and noted to be appropriate as prior to recent admission she did have noted in accurate flow from her tank. She denies any recent fevers, chills, nausea, emesis, cough, congestion. Work-up in the ED included T 98, heart rate 107, BP 120/80, respiratory rate 27, 97% on a nonrebreather, CBC with WBC 16, hemoglobin 13.2, platelet 238 with left shift, BMP with potassium 2.8, glucose 154, lactic acid 1.9, troponin 0 0.036, EKG with no acute evidence of ischemia, chest x-ray with progressively increased interstitial markings with areas of confluence in both lungs, worse in the left lung with possible mild congestion. In the ED patient ministered potassium 40 mg p.o. x1, Solu-Medrol, DuoNeb therapies as well as Tylenol. Following evaluation of patient the ED, did discuss case with Dr. Jorge pulmonary who will see the patient in consultation. 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) Interstitial lung disease (Chronic) Hypertension (Chronic) Allergies LOBSTER Allergy (Uncoded 02/26/19 10:01) Anaphylaxis Home Medications: Ambulatory Orders Medication Instructions Recorded Amlodipine [Norvasc] 10 mg PO DAILY 06/20/13 [place]-3 Fatty Acids/Fish Oil 1 cap PO DAILY 06/20/13 [[place] 3 Fish Oil Softgel] Ubidecarenone [Co Q-10] 100 mg PO DAILY 06/20/13 Cholecalciferol (Vitamin D3) 2,000 unit PO DAILY 02/08/19 [D3-2000] Lactobacillus Acidophilus 1 cap PO DAILY 02/08/19 [Acidophilus] Vitamin B Complex 1 ea PO DAILY 02/08/19 Acetaminophen [Tylenol] 1,000 mg PO Q6H PRN tab 02/19/19 Menthol/Lanolin/Calamine/Znox 1 applic TOPICAL 0600,2200 tube 02/19/19 [Calmoseptine Ointment] Surgical History: colectomy - Laparoscopic sigmoid. 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 Maternal History Items: Heart Disease Sibling History Items: Cancer - lung Review of Systems Constitutional: Reports: Malaise, Weakness, Fatigue. Denies: Chills, Fever, Weight Change HEENT: Denies: Head Aches, Sinus Congestion, Sinus Drainage Cardiovascular: Denies: Chest Pain, Palpitations Respiratory: Reports: Shortness of Breath, Shortness of breath at rest, Shortness of breath upon exertion. Denies: Cough, Sputum production, Wheezing Gastrointestinal: Denies: Abdominal Pain, Nausea, Vomiting Genitourinary: Denies: Dysuria Musculoskeletal: Reports: Joint Pain. Denies: Joint Tenderness Skin: Denies: Rash, Wounds Neurological: Denies: Numbness, Tingling, Focal weakness Psychiatric: Denies: Anxiety, Depression, Homicidal Ideations, Suicidal Ideations Hematologic/ Lymphatic: Denies: Easy Bruising, Easy Bleeding VTE Information - Inpt Only VTE Present on Admission: No VTE Mechan Device Prophylaxis: SCD's VTE Pharm Prophylaxis ordered?: Yes Patient Problems: Active and Suspected Problems Hypoxia (Acute) Hypokalemia (Acute) Subjective: Seated upright in ED bed, fatigued appearance, increased work of breathing, accessory muscle usage present. Objective: Physical Examination: General: awake, alert, oriented x 3 and cooperative, seated upright in the ED bed, increased work of breathing, accessory muscle usage, increased respiratory rate. Skin: normal color, turgor, no icterus, cyanosis. HEENT: AT/NC, EOMI, PERRLA, mildly dry MM, no carotid bruits or JVD noted. Lungs: Diminished breath sounds, greater bilateral bases, mildly coarse and crackle, no rhonchi or specific wheezing, increased respiratory rate, some accessory muscle usage. Heart: Mildly tachycardic with regular rhythm; no gallop, rub audible. Abdomen: soft, NTTP, ND, normal BS, no HSM. Extremities: no cyanosis, clubbing, or edema. Neurological: patient awake, alert, oriented x 3; cognitive function intact; pupils equally reactive to light and accomodation; cranial nerves II-XII grossly normal, moving all 4 extremities, no focal deficits, strength severely global decrease secondary to acute presentation. Psychiatric: affect appears fatigued, no acute evidence of depressive or anxiety feelings. - Physical Exam Vital Signs Temp Pulse Resp BP Pulse Ox 98.0 F 108 H 29 H 120/78 96 02/26/19 10:58 02/26/19 12:11 02/26/19 12:11 02/26/19 12:11 02/26/19 12:11 Oxygen Flow Rate (L/min) 12 Oxygen Delivery Method Venturi Mask Weight: 109 lb 12.643 oz Body Mass Index (BMI) 20.4 Laboratory Tests Past 24 Hrs 02/26/19 02/26/19 02/26/19 10:15 10:15 10:15 WBC 16.0 H RBC 4.35 Hgb 13.2 Hct 39.6 MCV 91.0 MCH 30.3 MCHC 33.3 RDW Std Deviation 45.1 H RDW Coeff of Paz 13.4 Plt Count 238 MPV 11.3 Immature Gran % (Auto) 1.100 H Neut % (Auto) 69.8 Lymph % (Auto) 12.4 L Gilli[place] % (Auto) 13.5 H Eos % (Auto) 2.7 Baso % (Auto) 0.5 Absolute Neuts (auto) 11.2 H Absolute Lymphs (auto) 1.98 Nucleated RBC % 0 Diff Path Review May foll Reactive Lymphocytes RARE Platelet Estimate ADEQUATE RBC Morphology NORM C+C Sodium 143 Potassium 2.8 L Chloride 104 Carbon Dioxide 30.0 Anion Gap 9 BUN 17 Creatinine 0.83 Estim Creat Clear Calc 38.07 Est GFR (MDRD) Af Amer 85 Est GFR (MDRD) Non-Af 70 BUN/Creatinine Ratio 20.6 H Glucose 154 H Lactic Acid 1.9 Calcium 9.4 Troponin I 0.036 Assessment/Plan All Active Problems Acute and chronic respiratory failure with hypoxia (Acute) Debility (Acute) Shortness of breath (Acute) Hypoxia (Acute) Hypokalemia (Acute) Acute respiratory alkalosis (Acute) Hypokalemic alkalosis (Acute) Sensation of gaseous abdominal fullness (Acute) The patient is a 83 y/o F w/ PMHx: Chronic hypoxic respiratory failure secondary to chronic restrictive lung disease/pulmonary fibrosis following with [facility] Dr. Higginbotham, hypertension, history of prior C. difficile, recently admitted admitted to the [facility] on 02/08/19, discharged on 02/11/19 to TCU w/ eventual discharge to home on 02/19/19 treated for acute on chronic combined respiratory failure secondary to worsening underlying interstitial lung disease as well as possible bronchiectasis with following progressively worsening fatigue, dyspnea, worse with any exertional effort but even at rest hypoxic over the last 1 week. 1. Acute on Chronic hypoxic respiratory failure secondary to Progressively worsening chronic restrictive lung disease/pulmonary fibrosis with leukocytosis: Will admit to [place], maintain on oxygen with wean as tolerated to home oxygen supplementation, continue ATC duonebs, PRN albuterol, IV methylprednisolone, initiate IV Rocephin and azithromycin per review of pulmonary physician note recommending empiric antibiotic therapy in interim pending sputum culture as well as respiratory viral panel, HOB, IS parameters. PT, OT, case measurement consultations for discharge planning. If patient does not improve clinically given history and preferences would consider hospice evaluation. 2. Hypokalemia: Admission K+ 2.8, supplementation given, repeat level this evening and in AM, magnesium pending. 3. Hyperglycemia: Admission glucose 154, possibly stress response, trend and if further elevated consider hemoglobin A1c if appropriate. 4. Hypertension: Continue home regimen including Norvasc, PRN hydralazine. 5. History of C. difficile: We will continue but increase patient lactobacillus regimen. 6. DVT prophylaxis: SCDs, Lovenox. 7. CODE status: Patient family member present, healthcare power of trust and estates attorney, living will is in place. Discussed CODE status at length including difference between FULL code, DNR-CCA and DNR-CC status. Following discussions about the differences in these status, requested DNR-CCA, no intubation status. DNR-CCA, no intubation form signed and placed on the chart. Advanced Care Planning Face to Face Time: 17 minutes. Code Visit Inpatient E&M: 98736 Init Hosp L3 Procedures: 32399 Advncd Care Plan 30 Min
--- NOTE | 2019-02-26 13:42 | PCM.CONS.PUL ---
Reason for Consult Reason for Consultation: Acute on chronic respiratory failure History of Present Illness: The patient is an 83-year-old female, with a history as outlined below, who presented to the emergency department on February 26 with complaints of worsening shortness of breath and hypoxemia. The patient was just admitted to the hospital February 08-, during which time, she was treated for acute on chronic respiratory failure. The patient is currently followed by Dr. Higginbotham at [facility]. She apparently carries a diagnosis of interstitial lung disease, although the exact subtype is not known to me. There is some documentation from Dr. Woodruff previously that the patient carries a history of NSIP. However, the patient reports to me that she was told by her pulmonary office that she had an untreatable, progressive interstitial lung disease. She reports that she was initially diagnosed with her interstitial lung disease 10 years ago. She denies a history of any autoimmune or rheumatologic disease. She reports that she utilizes supplemental oxygen in her home environment on an as-needed basis. She routinely checks her oxygen saturations and only utilizes supplemental O2 when her pulse ox is reading on the low side. The patient does report that she did undergo some form of a lung biopsy previously, which apparently confirmed her diagnosis of interstitial lung disease. Surface echocardiogram completed in February 2019 revealed normal LV size with an ejection fraction of 65% and stage I diastolic dysfunction. The right ventricle was noted to be normal in size and function. Bubble study revealed no evidence of a right to left shunt. Right ventricular systolic pressure was estimated to be 48 mmHg. Prior CTA chest from the beginning of the month revealed bilateral subpleural groundglass and reticular changes with areas of honeycombing, traction bronchiectasis and volume loss in the left hemithorax. On presentation to the emergency department, the patient was noted to be afebrile, tachycardic and tachypneic. She was requiring a nonrebreather to maintain oxygen saturations. Laboratory evaluation revealed an elevated white blood cell count to 16,000. Chemistry profile was notable for a potassium of 2.8. Lactate was within normal limits. Troponin was negative. In the emergency department, the patient was treated with bronchodilators and IV steroids. Of note, it was confirmed that the patient's CODE STATUS is DNR CCA without intubation. 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) Interstitial lung disease (Chronic) Hypertension (Chronic) Allergies LOBSTER Allergy (Uncoded 02/26/19 10:01) Anaphylaxis Home Medications: Ambulatory Orders Medication Instructions Recorded Amlodipine [Norvasc] 10 mg PO DAILY 06/20/13 [place]-3 Fatty Acids/Fish Oil 1 cap PO DAILY 06/20/13 [[place] 3 Fish Oil Softgel] Ubidecarenone [Co Q-10] 100 mg PO DAILY 06/20/13 Cholecalciferol (Vitamin D3) 2,000 unit PO DAILY 02/08/19 [D3-2000] Lactobacillus Acidophilus 1 cap PO DAILY 02/08/19 [Acidophilus] Vitamin B Complex 1 ea PO DAILY 02/08/19 Acetaminophen [Tylenol] 1,000 mg PO Q6H PRN tab 02/19/19 Menthol/Lanolin/Calamine/Znox 1 applic TOPICAL 0600,2200 tube 02/19/19 [Calmoseptine Ointment] Surgical History: colectomy - Laparoscopic sigmoid. 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 Smoking Status: Never smoker - *Family History Paternal History Items: No pertinent history Maternal History Items: Heart Disease Sibling History Items: Cancer - lung Review of Systems Constitutional: Denies: Chills, Fever Eyes: Denies: Blurred vision, Double vision HEENT: Denies: Head Aches, Sinus Congestion, Sinus Drainage Cardiovascular: Denies: Chest Pain, Palpitations Respiratory: Reports: Cough, Shortness of Breath Gastrointestinal: Denies: Abdominal Pain, Nausea, Vomiting Genitourinary: Denies: Dysuria Musculoskeletal: Denies: Joint Pain, Joint Tenderness Skin: Denies: Rash, Wounds Neurological: Denies: Numbness, Tingling, Focal weakness Psychiatric: Denies: Anxiety, Depression, Homicidal Ideations, Suicidal Ideations Hematologic/ Lymphatic: Denies: Easy Bruising, Easy Bleeding Patient Problems: Active and Suspected Problems Hypoxia (Acute) Hypokalemia (Acute) Objective: The patient's most recent lab work, culture data and imaging studies have all been personally reviewed. - Physical Exam General: Alert, Cooperative, - - Ventimask currently in place HEENT: Atraumatic, PERRLA, Normocephalic Oral: No Gingival or Mucosal Lesions/ Ulcerations Neck: Supple, No Nodes, Trachea Midline Lungs: Short of Breath, Tachypneic, - - Diminished bilaterally with coarse crackles present. Cardiovascular: Normal S1, Normal S2, No murmurs, Tachycardic Abdomen: Bowel Sounds Present, Soft, Non Tender Extremities: No clubbing, No cyanosis, No edema Skin: No breakdown Musculoskeletal: No Tenderness to Palpation of Joints or Extremities Lymphatic: No Cervical, Supraclavicular, or Inguinal Adenopathy Neurological: Cranial nerves II-XII grossly intact, Neuro grossly intact Psych/Mental Status: Normal Affect, Appropriate Vital Signs Temp Pulse Resp BP Pulse Ox 98.1 F 108 H 23 H 113/81 H 96 02/26/19 12:55 02/26/19 12:55 02/26/19 12:55 02/26/19 12:55 02/26/19 12:55 Oxygen Flow Rate (L/min) 12 Oxygen Delivery Method Venturi Mask Weight: 109 lb 12.643 oz Body Mass Index (BMI) 20.4 Laboratory Tests Past 24 Hrs 02/26/19 02/26/19 02/26/19 10:15 10:15 10:15 WBC 16.0 H RBC 4.35 Hgb 13.2 Hct 39.6 MCV 91.0 MCH 30.3 MCHC 33.3 RDW Std Deviation 45.1 H RDW Coeff of Paz 13.4 Plt Count 238 MPV 11.3 Immature Gran % (Auto) 1.100 H Neut % (Auto) 69.8 Lymph % (Auto) 12.4 L [place] % (Auto) 13.5 H Eos % (Auto) 2.7 Baso % (Auto) 0.5 Absolute Neuts (auto) 11.2 H Absolute Lymphs (auto) 1.98 Nucleated RBC % 0 Diff Path Review May foll Reactive Lymphocytes RARE Platelet Estimate ADEQUATE RBC Morphology NORM C+C Sodium 143 Potassium 2.8 L Chloride 104 Carbon Dioxide 30.0 Anion Gap 9 BUN 17 Creatinine 0.83 Estim Creat Clear Calc 38.07 Est GFR (MDRD) Af Amer 85 Est GFR (MDRD) Non-Af 70 BUN/Creatinine Ratio 20.6 H Glucose 154 H Lactic Acid 1.9 Calcium 9.4 Troponin I 0.036 Clinical Impression(s) from Imaging Studies Chest X-Ray 02/26/19 09:57 IMPRESSION: Progressive increased interstitial markings with areas of confluence in both lungs worse in the left lung suggestive of progressive chronic interstitial fibrosis and possible mild degree of superimposed CHF. Electronically Signed: Marino Anthony, at 10:37 EDT , Service support , Assessment/Plan All Active Problems Acute and chronic respiratory failure with hypoxia (Acute) Debility (Acute) Shortness of breath (Acute) Hypoxia (Acute) Hypokalemia (Acute) Acute respiratory alkalosis (Acute) Hypokalemic alkalosis (Acute) Sensation of gaseous abdominal fullness (Acute) RECOMMENDATIONS: 1. Place patient on empiric antimicrobials for now. 2. Obtain medical records, including lung biopsy results from [facility]. 3. Okay to continue corticosteroids for now. 4. Bronchodilators are unlikely to be beneficial to this patient. 5. Potassium repletion IMPRESSIONS: 1. Acute on chronic hypoxemic respiratory failure The patient apparently has some form of interstitial lung disease, which is followed longitudinally by Dr. Higginbotham at the [facility]. 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 However, I do not have [facility] records available to me to confirm her actual diagnosis. Given that the patient was just recently admitted to the hospital and appears to be rather acutely decompensated, I would recommend placing her on empiric antimicrobial therapy at this time. We will plan to wean her supplemental oxygen as tolerated. The patient's symptoms may certainly represent progression of her underlying interstitial lung disease. However, it would certainly be beneficial to have the records from the [facility] regarding her diagnosis. I am okay with continuing low-dose systemic corticosteroids for now. The patient is adamant that she would not want to be intubated. If her constellation of symptoms turns out to be nothing more than underlying disease progression, she may be a candidate for referral to palliative care/hospice. If the patient does not begin to improve over the next 24 hours, would need to consider entertaining the idea of working her up for potential reversible causes of worsening hypoxemia, including venous thromboembolic disease and heart failure. 2. Hypokalemia Electrolyte repletion as ordered. Recheck levels in the morning. 3. Advanced age/hypertension/CODE STATUS Complicates care, management, recovery and prognosis. CODE STATUS confirmed to be DNR CCA without intubation. Okay to continue home medications. This note was generated with [employer] dictation software. It may contain incorrect words, spelling, and punctuation that were not noted in checking the note before signing. Code Visit Inpatient E&M: 33654 Init Hosp L3
[2019-02-26 14:09] LABS: Magnesium 2.1 mg/dL (1.6-2.6)
[2019-02-26] MEDS: Furosemide 20 MG/2 ML VIAL IV (14:45)
[2019-02-26] MEDS: Ceftriaxone 1 GM/50 ML BAG IV (16:32)
--- NOTE | 2019-02-26 16:48 | CHAPLAIN ---
Type of Pastoral Visit _x__ Initial Visit ___ Follow-up Visit ___ On-call Visit ___ General Patient Visit ___ Spiritual Assessment ___ Family Conference ___ Bereavement ___ Rapid Response ___ Code Blue ___ Other (describe below) Pastoral Care Referral From _x__ Patient ___ Family ___ Nurse ___ Physician ___ Process Automation Engineer ___ Die Maintenance Technician ___ Other (describe below) Sacrament/Intervention _x__ Active listening ___ Anointing ___ Rastafarian ___ Bereavement ___ Communion ___ Holly exploration ___ ___ Life review _x__ Prayer ___ Reconciliation ___ Sacrament of Sick _x__ Supportive presence ___ Wedding ___ Other (describe below) Pastoral Comments gave spiritual support to this patient previously when admitted to PCU and TCU earlier this month; met with son also on this visit; pt welcomes support and prayer
[2019-02-26 17:42] LABS: Anion Gap 10 (5-15); BUN 19 mg/dL (7-18); BUN/Creat Ratio 18.8 RATIO (10-20); Calcium,Total 9.4 mg/dL (8.5-10.1); Chloride 103 mmol/L (98-107); Creatinine, Serum 1.01 mg/dL (0.55-1.02); EST Glomerular Filtration Rate 55 mL/min (>60); Est Glom Filt Rate - Afr Amer 67 mL/min (>60); Estimated Creatinine Clearance 31.29 ml/min; Glucose 267 mg/dL (74-106); Potassium 3.6 mmol/L (3.5-5.1); Sodium Level 141 mmol/L (136-145)
[2019-02-26] MEDS: Menthol/Lanolin/Calamine/Znox 113 GM Tube 1 APPLIC TOPICAL (21:48)
[2019-02-27] VITALS (11 sets, daily range): BP systolic 103–108; BP diastolic 59–68; PULSE 82–109; RESP 18–24; TEMP 36.6–37.1; O2SAT 88–97
[2019-02-27 06:04] LABS: Absolute Lymphocyte Count 1.25 X10^3/uL (0.83-4.51); Absolute Neutrophil Count 15.2 X10^3/uL (2.0-7.7); Basophil# 0.04 X10^3/uL; Basophil% 0.2 % (0-1); Hematocrit 38.2 % (37-47); Hemoglobin 12.8 g/dL (12.0-15.0); Lymphocyte # 1.25 X10^3/ul (4.0); Lymphocyte % 7.1 % (19-41); Mean Corp Hgb Conc 33.5 g/dL (32-36); Mean Corpuscular Hgb 30.3 pg (27.0-32.0); Mean Corpuscular Volume 90.5 fL (81-99); Mean Platelet Vol. 12.4 fl (6.2-12.0); Monocyte% 4.6 % (0-10); NRBC Flagged by Analyzer 0 % (0-5); Neutrophil % 86.8 % (47-70); Platelet Count 230 K/mm3 (150-450); RBC Distribution Width CV 13.5 % (11.6-14.6); Red Blood Count 4.22 M/mm3 (4.2-5.4); White Blood Count 17.5 K/mm3 (4.4-11.0)
[2019-02-27 06:10] LABS: Anion Gap 8 (5-15); BUN 27 mg/dL (7-18); BUN/Creat Ratio 32.6 RATIO (10-20); Calcium,Total 9.5 mg/dL (8.5-10.1); Chloride 106 mmol/L (98-107); Creatinine, Serum 0.83 mg/dL (0.55-1.02); EST Glomerular Filtration Rate 70 mL/min (>60); Est Glom Filt Rate - Afr Amer 84 mL/min (>60); Estimated Creatinine Clearance 38.07 ml/min; Glucose 149 mg/dL (74-106); Potassium 3.5 mmol/L (3.5-5.1); Sodium Level 143 mmol/L (136-145)
[2019-02-27] MEDS: 0.9% NaCl Peripheral Flush Adult/Peds IV ×3 (06:12→21:04)
[2019-02-27] MEDS: Menthol/Lanolin/Calamine/Znox 113 GM Tube 1 APPLIC TOPICAL (06:15)
--- NOTE | 2019-02-27 08:22 | PN_ITS ---
Patient Problems: Active and Suspected Problems Hypoxia (Acute) Hypokalemia (Acute) Subjective: The patient was seen and examined at the bedside this morning. Events from the last 24 hours have been reviewed. The patient is currently afebrile, hemodynamically stable and maintaining appropriate oxygen saturations on a 50% Ventimask. The patient was last seen in the office of her primary pulmonary provider at the [facility] on February 08. At that time, the patient was noted to have a 3 L/min supplemental oxygen requirement. Ironically, although spirometry and diffusing capacity have been completed in the past, most recently as February 2019, the patient does not appear to ever have had lung volumes completed. A CT chest without contrast completed in September 2014 revealed no evidence of mediastinal or hilar adenopathy. Subpleural interstitial lung densities, linear and reticular opacities were noted bilaterally. 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 I do not know that the patient has ever had a lung biopsy or autoimmune/rheumatologic work-up completed in the past. Objective: The patient's most recent lab work, culture data and imaging studies have all been personally reviewed. Surface echocardiogram dated February 2019 revealed evidence of stage I diastolic dysfunction with an ejection fraction of 65%. Right ventricular systolic pressure was estimated to be 48 mmHg. - Physical Exam General: Alert, Cooperative HEENT: Atraumatic, PERRLA, Normocephalic Oral: No Gingival or Mucosal Lesions/ Ulcerations Neck: Supple, No Nodes, Trachea Midline Lungs: - - Diminished air movement bilaterally with coarse crackles present, tachypnea and conversational dyspnea. Cardiovascular: Normal S1, Normal S2, No murmurs, Tachycardic Abdomen: Bowel Sounds Present, Soft, Non Tender Extremities: No clubbing, No cyanosis, No edema Skin: No breakdown Musculoskeletal: No Tenderness to Palpation of Joints or Extremities Lymphatic: No Cervical, Supraclavicular, or Inguinal Adenopathy Neurological: Neuro grossly intact Psych/Mental Status: Normal Affect, Appropriate Vital Signs Temp Pulse Resp BP Pulse Ox 98.8 F 82 20 H 103/64 95 02/27/19 03:45 02/27/19 07:13 02/27/19 03:45 02/27/19 03:45 02/27/19 03:45 Oxygen Flow Rate (L/min) 6 Oxygen Delivery Method Venturi Mask Weight: 105 lb 2.568 oz Body Mass Index (BMI) 20.2 Intake and Output for Last 24 Hours 02/25/19 02/26/19 02/27/19 23:59 23:59 23:59 Intake Total 995 / 995 Balance 995 / 995 Microbiology Past 72 Hours 02/26/19 15:20 Respiratory Panel (PCR) - Final Mucosa - Nasopharyngeal Laboratory Tests Past 24 Hrs 02/26/19 02/26/19 02/26/19 10:15 10:15 10:15 WBC 16.0 H RBC 4.35 Hgb 13.2 Hct 39.6 MCV 91.0 MCH 30.3 MCHC 33.3 RDW Std Deviation 45.1 H RDW Coeff of Paz 13.4 Plt Count 238 MPV 11.3 Immature Gran % (Auto) 1.100 H Neut % (Auto) 69.8 Lymph % (Auto) 12.4 L [place] % (Auto) 13.5 H Eos % (Auto) 2.7 Baso % (Auto) 0.5 Absolute Neuts (auto) 11.2 H Absolute Lymphs (auto) 1.98 Nucleated RBC % 0 Diff Path Review May foll Reactive Lymphocytes RARE Platelet Estimate ADEQUATE RBC Morphology NORM C+C Sodium 143 Potassium 2.8 L Chloride 104 Carbon Dioxide 30.0 Anion Gap 9 BUN 17 Creatinine 0.83 Estim Creat Clear Calc 38.07 Est GFR (MDRD) Af Amer 85 Est GFR (MDRD) Non-Af 70 BUN/Creatinine Ratio 20.6 H Glucose 154 H Lactic Acid 1.9 Calcium 9.4 Magnesium Troponin I 0.036 02/26/19 02/26/19 02/27/19 10:15 17:05 05:14 WBC 17.5 H RBC 4.22 Hgb 12.8 Hct 38.2 MCV 90.5 MCH 30.3 MCHC 33.5 RDW Std Deviation 45.0 H RDW Coeff of Paz 13.5 Plt Count 230 MPV 12.4 H Immature Gran % (Auto) 1.300 H Neut % (Auto) 86.8 H Lymph % (Auto) 7.1 L [place] % (Auto) 4.6 Eos % (Auto) 0.0 Baso % (Auto) 0.2 Absolute Neuts (auto) 15.2 H Absolute Lymphs (auto) 1.25 Nucleated RBC % 0 Diff Path Review Reactive Lymphocytes Platelet Estimate RBC Morphology Sodium 141 Potassium 3.6 Chloride 103 Carbon Dioxide 28.0 Anion Gap 10 BUN 19 H Creatinine 1.01 Estim Creat Clear Calc 31.29 Est GFR (MDRD) Af Amer 67 Est GFR (MDRD) Non-Af 55 L BUN/Creatinine Ratio 18.8 Glucose 267 H Lactic Acid Calcium 9.4 Magnesium 2.1 Troponin I 02/27/19 05:14 WBC RBC Hgb Hct MCV MCH MCHC RDW Std Deviation RDW Coeff of Paz Plt Count MPV Immature Gran % (Auto) Neut % (Auto) Lymph % (Auto) [place] % (Auto) Eos % (Auto) Baso % (Auto) Absolute Neuts (auto) Absolute Lymphs (auto) Nucleated RBC % Diff Path Review Reactive Lymphocytes Platelet Estimate RBC Morphology Sodium 143 Potassium 3.5 Chloride 106 Carbon Dioxide 29.0 Anion Gap 8 BUN 27 H Creatinine 0.83 Estim Creat Clear Calc 38.07 Est GFR (MDRD) Af Amer 84 Est GFR (MDRD) Non-Af 70 BUN/Creatinine Ratio 32.6 H Glucose 149 H Lactic Acid Calcium 9.5 Magnesium Troponin I Clinical Impression(s) from Imaging Studies Chest X-Ray 02/26/19 09:57 IMPRESSION: Progressive increased interstitial markings with areas of confluence in both lungs worse in the left lung suggestive of progressive chronic interstitial fibrosis and possible mild degree of superimposed CHF. Electronically Signed: Marino Anthony, at 10:37 EDT , Service support , Medical Necessity - Tobacco Use Smoking Status: Never smoker Tobacco Use: Non-smoker Assessment/Plan All Active Problems Acute and chronic respiratory failure with hypoxia (Acute) Debility (Acute) Shortness of breath (Acute) Hypoxia (Acute) Hypokalemia (Acute) Acute respiratory alkalosis (Acute) Hypokalemic alkalosis (Acute) Sensation of gaseous abdominal fullness (Acute) RECOMMENDATIONS: 1. Continue empiric antimicrobials for now. 2. In an attempt to identify any potential reversible causes for the patient's decompensation, we will plan to obtain repeat CTA chest. 3. Obtain medical records, including lung biopsy results from [facility]. 4. Okay to continue corticosteroids for now. 5. Bronchodilators are unlikely to be beneficial to this patient. IMPRESSIONS: 1. Acute on chronic hypoxemic respiratory failure The patient apparently has some form of interstitial lung disease, which is followed longitudinally by Dr. Higginbotham at the [facility]. 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 However, I do not have [facility] records available to me to confirm her actual diagnosis. Given that the patient was just recently admitted to the hospital and appears to be rather acutely decompensated, I would recommend continuing her on empiric antimicrobial therapy at this time. We will plan to wean her supplemental oxygen as tolerated. The patient's symptoms may certainly represent progression of her underlying interstitial lung disease. However, it would certainly be beneficial to have the records from the [facility] regarding her diagnosis. I am okay with continuing systemic corticosteroids for now. The patient is adamant that she would not want to be intubated. If her constellation of symptoms turns out to be nothing more than underlying disease progression, she may be a candidate for referral to palliative care/hospice. Given that there has been little improvement in the patient's overall respiratory status since admission, I am going to plan to obtain a repeat CTA chest. 2. Advanced age/hypertension/CODE STATUS Complicates care, management, recovery and prognosis. CODE STATUS confirmed to be DNR CCA without intubation. Okay to continue home medications. This note was generated with in3Depth dictation software. It may contain incorrect words, spelling, and punctuation that were not noted in checking the note before signing. Code Visit Inpatient E&M: 81363 Subs Hosp L2
[2019-02-27] MEDS: Albuterol 2.5 MG/3 ML VIAL.NEB. INHALATION (08:33)
[2019-02-27] MEDS: Docusate Sodium 100 MG Capsule PO (10:03)
[2019-02-27] MEDS: Enoxaparin 40 MG/0.4 ML Syringe SC (10:03)
[2019-02-27] MEDS: amLODIPine 10 MG Tablet PO (10:03)
[2019-02-27] MEDS: Ceftriaxone 1 GM/50 ML BAG IV (10:05)
--- NOTE | 2019-02-27 11:35 | CASEMGMT ---
RN CM Readmission Note Previous Admission: 02/08/19- Diagnosis: Respiratory failure/Pulmonary Fibrosis DC Disposition: [facility] TCU Current Admission Presentation: Acute and chronic respiratory failure with hypoxia Intro role of CM and purpose of RN CM assessment to patient in room. Pt is able to participate in assessment, but difficulty speaking due to shortness of breath Demographics, PCP and Pharmacy verified. Pt states she has been home since TCU discharge. Continues to live with her son and continues to have difficulty at home with ADL's, stairs due to shortness of breath. PCP: Dr. Franco Specialists: Dr. Higginbotham, Classroom Coordinator Preferred Pharmacy: [facility] Insurance: [facility] Prescription Benefit: yes LNOK: Sean Birch, son and DPOA Living Arrangements: Pt lives with son in 2 story home. Bed, bathroom on 2nd level, 1/2 bath first floor. Pt states difficulty with doing stairs, tries to be as independent as possible. Transportation: DME: O2 through [employer]. Rollator HHC: [facility] past SW: Palliative vs Hospice consideration per Dr. Jorge if symptoms are underlying disease progression. Patient DC goals: pt is unsure DC PLAN: undetermined. Anjali SNATIAGO RN ACM
--- NOTE | 2019-02-27 13:36 | CT_ITS ---
STUDY: CTA CHEST REASON FOR EXAM: Female, 83 years old. Acute on chronic respiratory failure. History of pulmonary fibrosis. RADIATION DOSAGE (If Supplied By Facility): CTDIvol = ( 4.98 ) mGy, DLP = ( 145.22 ) mGycm TECHNIQUE: The examination was performed with the intravenous administration of 75 IV Isovue 370. Post-processing of the angiographic images was performed, with multiplanar reformation and 3D reconstruction. Individualized dose optimization techniques were used for this CT. COMPARISON: Comparison is made with prior examination dated February 08, 2019. FINDINGS: Normal enhancement of the main pulmonary artery and right and left pulmonary arteries. Normal enhancement of the bilateral peripheral pulmonary arteries. There is no demonstrated pulmonary embolism. Normal thoracic aorta and visualized great vessels. There is no demonstrated aortic dissection. Normal heart and pericardium. Normal mediastinum. Normal hilar regions. Normal visualized trachea and bronchi. Stable volume loss in the left hemithorax. 16 again, diffuse increased interstitial markings in both lungs with areas of confluence. Honeycombing in the lower lobes worse at the left lung base. This is indicative with diffuse interstitial fibrosis. This is unchanged. Scattered areas of patchy groundglass appearance. Normal pleura. Normal chest wall structures. There are degenerative changes of thoracic spine. Moderate sized hiatal hernia. Hypertrophy of the left adrenal gland. CT/CTA Chest W/WO Contrast IMPRESSION: Stable examination. No evidence of pulmonary embolism. Electronically Signed: Marino Anthony, at 15:07 EDT , Service support ,
[2019-02-27 14:57] LABS: Rheumatoid Factor < 10.0 IU/mL (<15)
--- NOTE | 2019-02-27 18:30 | PCM.PROGNOTE ---
Patient Problems: Active and Suspected Problems Hypoxia (Acute) Hypokalemia (Acute) Subjective: Patient was seen and examined today, she is on 6 L of oxygen via nasal cannula and seems to be comfortable at this time. Patient's son is in the room, we talked briefly about her medical condition and I talked with the patient as well about her medical condition. [facility] - Physical Exam General: Alert, Oriented x3, Cooperative, No apparent distress, Well developed HEENT: Atraumatic, PERRLA, EOMI, Normocephalic Oral: Moist Mucosa Neck: Supple, No JVD, Trachea Midline, Thyroid Normal Size and Texture Lungs: Normal air movement, No rhonchi, No wheeze, Rales - Inspiratory rales are noted over the patient's lungs bilaterally Cardiovascular: Regular rate, Regular Rhythm, Normal S1, Normal S2, No murmurs, PMI Normal, No rub noted Abdomen: Bowel Sounds Present, Soft, Non Tender, Non-Distended Extremities: No edema, Capillary Refill Less than 3 Seconds Skin: No rashes, No breakdown Musculoskeletal: Cachexia, Muscle Wasting Neurological: Cranial nerves II-XII grossly intact, Neuro grossly intact, Sensory exam intact to light touch and pain Psych/Mental Status: Normal Affect, Appropriate, Alert and oriented to time, place, person, mood and affect Vital Signs Temp Pulse Resp BP Pulse Ox 98.7 F 103 H 20 H 108/68 96 02/27/19 15:15 02/27/19 15:22 02/27/19 15:15 02/27/19 15:15 02/27/19 15:15 Oxygen Flow Rate (L/min) 6 Oxygen Delivery Method Nasal Cannula Weight: 47.7 kg Body Mass Index (BMI) 20.2 Intake and Output for Last 24 Hours 02/25/19 02/26/19 02/27/19 23:59 23:59 23:59 Intake Total 995 / 995 785 / 785 Balance 995 / 995 785 / 785 Microbiology Past 72 Hours 02/26/19 15:20 Respiratory Panel (PCR) - Final Mucosa - Nasopharyngeal Laboratory Tests Past 24 Hrs 02/27/19 02/27/19 02/27/19 05:14 05:14 14:02 WBC 17.5 H RBC 4.22 Hgb 12.8 Hct 38.2 MCV 90.5 MCH 30.3 MCHC 33.5 RDW Std Deviation 45.0 H RDW Coeff of Paz 13.5 Plt Count 230 MPV 12.4 H Immature Gran % (Auto) 1.300 H Neut % (Auto) 86.8 H Lymph % (Auto) 7.1 L [place] % (Auto) 4.6 Eos % (Auto) 0.0 Baso % (Auto) 0.2 Absolute Neuts (auto) 15.2 H Absolute Lymphs (auto) 1.25 Nucleated RBC % 0 Sodium 143 Potassium 3.5 Chloride 106 Carbon Dioxide 29.0 Anion Gap 8 BUN 27 H Creatinine 0.83 Estim Creat Clear Calc 38.07 Est GFR (MDRD) Af Amer 84 Est GFR (MDRD) Non-Af 70 BUN/Creatinine Ratio 32.6 H Glucose 149 H Calcium 9.5 Rheumatoid Factor < 10.0 Cycl Citrul Peptide IgG DAVID Screen ALONA-1 Antibody SS-A/Ro IgG Antibody SS-B/La IgG Antibody Sm (Arana) Antibody SUPPL[employer]ER Antibody Scl-70 Scleroderma Ab Double Strand DNA Ab Centromere B Antibody 02/27/19 02/27/19 14:02 14:02 WBC RBC Hgb Hct MCV MCH MCHC RDW Std Deviation RDW Coeff of Paz Plt Count MPV Immature Gran % (Auto) Neut % (Auto) Lymph % (Auto) [place] % (Auto) Eos % (Auto) Baso % (Auto) Absolute Neuts (auto) Absolute Lymphs (auto) Nucleated RBC % Sodium Potassium Chloride Carbon Dioxide Anion Gap BUN Creatinine Estim Creat Clear Calc Est GFR (MDRD) Af Amer Est GFR (MDRD) Non-Af BUN/Creatinine Ratio Glucose Calcium Rheumatoid Factor Cycl Citrul Peptide IgG Pending DAVID Screen Pending ALONA-1 Antibody Pending SS-A/Ro IgG Antibody Pending SS-B/La IgG Antibody Pending Sm (Arana) Antibody Pending SUP[employer]ER Antibody Pending Scl-70 Scleroderma Ab Pending Double Strand DNA Ab Pending Centromere B Antibody Pending Medical Necessity - Tobacco Use Smoking Status: Never smoker Tobacco Use: Non-smoker Assessment/Plan All Active Problems Acute and chronic respiratory failure with hypoxia (Acute) Debility (Acute) Shortness of breath (Acute) Hypoxia (Acute) Hypokalemia (Acute) Acute respiratory alkalosis (Acute) Hypokalemic alkalosis (Acute) Sensation of gaseous abdominal fullness (Acute) #1 acute on chronic hypoxic respiratory failure-exact etiology of patient's exacerbation is unknown at this time, pulmonary medicine is seeing the patient, pulmonary medicine feels that the patient may have nonspecific interstitial pneumonia (NSIP), pulmonary medicine stated that the patient should remain on her current antibiotics, she has been given IV corticosteroids and aggressive aerosol treatments. Patient is a DNR CC arrest-she does not want mechanical ventilation. #2 pulmonary fibrosis-type unknown-? 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 #4 moderate pulmonary hypertension-patient's right ventricular systolic pressure was 48 #5 leukocytosis-etiology unclear at this point-patient will remain on IV antibiotics for now per the direction of pulmonary medicine, it may be secondary to recent steroid usage #6 hypertension #7 hypokalemia-resolved at this time Code Visit Inpatient E&M: 67510 Subs Hosp L2
[2019-02-28] VITALS (9 sets, daily range): BP systolic 108–128; BP diastolic 56–77; PULSE 73–101; RESP 16–18; TEMP 36.4–36.7; O2SAT 93–98
[2019-02-28] MEDS: Menthol/Lanolin/Calamine/Znox 113 GM Tube 1 APPLIC TOPICAL (05:52)
[2019-02-28] MEDS: 0.9% NaCl Peripheral Flush Adult/Peds IV ×3 (05:53→21:05)
--- NOTE | 2019-02-28 07:06 | PN_ITS ---
Patient Problems: Active and Suspected Problems Hypoxia (Acute) Hypokalemia (Acute) Subjective: The patient was seen and examined at the bedside this morning. Events from the last 24 hours have been reviewed. The patient is currently afebrile, hemodynamically stable and maintaining appropriate oxygen saturations on 4 L/min. I spoke with both the patient and her son at the bedside this morning. I explained to them that the records obtained from [facility] are rather ambiguous in terms of identifying the specific interstitial lung disease that the patient has. 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 The patient does appear to be benefiting clinically from the use of corticosteroids, as evidenced by her decreasing oxygen need. I did bring up the idea of hospice, as the patient Saying that she wanted to just pass peacefully. However, the patient was adamant that she did not want to be considered for hospice referral. Objective: The patient's most recent lab work, culture data and imaging studies have all been personally reviewed. Surface echocardiogram dated February 2019 revealed evidence of stage I diastolic dysfunction with an ejection fraction of 65%. Right ventricular systolic pressure was estimated to be 48 mmHg. The patient was last seen in the office of her primary pulmonary provider at the [facility] on February 08. At that time, the patient was noted to have a 3 L/min supplemental oxygen requirement. Ironically, although spirometry and diffusing capacity have been completed in the past, most recently as February 2019, the patient does not appear to ever have had lung volumes completed. A CT chest without contrast completed in September 2014 revealed no evidence of mediastinal or hilar adenopathy. Subpleural interstitial lung densities, linear and reticular opacities were noted bilaterally. 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 I do not know that the patient has ever had a lung biopsy or autoimmune/rheumatologic work-up completed in the past. - Physical Exam General: Alert, Cooperative HEENT: Atraumatic, Normocephalic Oral: No Gingival or Mucosal Lesions/ Ulcerations Neck: Supple, No Nodes, Trachea Midline Lungs: - - Little significant interval change with diminished air movement and coarse crackles bilaterally. Cardiovascular: Regular rate, Regular Rhythm, Normal S1, Normal S2 Abdomen: Bowel Sounds Present, Soft, Non Tender Extremities: No clubbing, No cyanosis, No edema Skin: - - No significant change from previous. Musculoskeletal: No Tenderness to Palpation of Joints or Extremities Lymphatic: No Cervical, Supraclavicular, or Inguinal Adenopathy Neurological: Cranial nerves II-XII grossly intact, Neuro grossly intact Psych/Mental Status: Alert and oriented to time, place, person, mood and affect Vital Signs Temp Pulse Resp BP Pulse Ox 98.1 F 73 18 128/77 H 98 02/28/19 03:08 02/28/19 03:08 02/28/19 03:08 02/28/19 03:08 02/28/19 03:08 Oxygen Flow Rate (L/min) 6 Oxygen Delivery Method Venturi Mask Weight: 108 lb 7.479 oz Body Mass Index (BMI) 20.2 Intake and Output for Last 24 Hours 02/26/19 02/27/19 02/28/19 23:59 23:59 23:59 Intake Total 995 / 995 885 / 885 50 / 50 Balance 995 / 995 885 / 885 50 / 50 Microbiology Past 72 Hours 02/26/19 15:20 Respiratory Panel (PCR) - Final Mucosa - Nasopharyngeal Laboratory Tests Past 24 Hrs 02/27/19 02/27/19 02/27/19 14:02 14:02 14:02 Rheumatoid Factor < 10.0 Cycl Citrul Peptide IgG Pending DAVID Screen Pending ALONA-1 Antibody Pending SS-A/Ro IgG Antibody Pending SS-B/La IgG Antibody Pending Sm (Arana) Antibody Pending MANAGER REPORTING Antibody Pending Scl-70 Scleroderma Ab Pending Double Strand DNA Ab Pending Centromere B Antibody Pending Labs (Last 48 Hours) 02/26/19 02/26/19 02/26/19 10:15 10:15 10:15 WBC 16.0 H RBC 4.35 Hgb 13.2 Hct 39.6 MCV 91.0 MCH 30.3 MCHC 33.3 RDW Std Deviation 45.1 H RDW Coeff of Paz 13.4 Plt Count 238 MPV 11.3 Immature Gran % (Auto) 1.100 H Neut % (Auto) 69.8 Lymph % (Auto) 12.4 L Gilliam % (Auto) 13.5 H Eos % (Auto) 2.7 Baso % (Auto) 0.5 Absolute Neuts (auto) 11.2 H Absolute Lymphs (auto) 1.98 Nucleated RBC % 0 Diff Path Review May foll Reactive Lymphocytes RARE Platelet Estimate ADEQUATE RBC Morphology NORM C+C Sodium 143 Potassium 2.8 L Chloride 104 Carbon Dioxide 30.0 Anion Gap 9 BUN 17 Creatinine 0.83 Estim Creat Clear Calc 38.07 Est GFR (MDRD) Af Amer 85 Est GFR (MDRD) Non-Af 70 BUN/Creatinine Ratio 20.6 H Glucose 154 H Lactic Acid 1.9 Calcium 9.4 Magnesium Troponin I 0.036 Rheumatoid Factor Cycl Citrul Peptide IgG DAVID Screen ALONA-1 Antibody SS-A/Ro IgG Antibody SS-B/La IgG Antibody Sm (Arana) Antibody MANAGER REPORTING Antibody Scl-70 Scleroderma Ab Double Strand DNA Ab Centromere B Antibody 02/26/19 02/26/19 02/27/19 10:15 17:05 05:14 WBC 17.5 H RBC 4.22 Hgb 12.8 Hct 38.2 MCV 90.5 MCH 30.3 MCHC 33.5 RDW Std Deviation 45.0 H RDW Coeff of Paz 13.5 Plt Count 230 MPV 12.4 H Immature Gran % (Auto) 1.300 H Neut % (Auto) 86.8 H Lymph % (Auto) 7.1 L Gilliam % (Auto) 4.6 Eos % (Auto) 0.0 Baso % (Auto) 0.2 Absolute Neuts (auto) 15.2 H Absolute Lymphs (auto) 1.25 Nucleated RBC % 0 Diff Path Review Reactive Lymphocytes Platelet Estimate RBC Morphology Sodium 141 Potassium 3.6 Chloride 103 Carbon Dioxide 28.0 Anion Gap 10 BUN 19 H Creatinine 1.01 Estim Creat Clear Calc 31.29 Est GFR (MDRD) Af Amer 67 Est GFR (MDRD) Non-Af 55 L BUN/Creatinine Ratio 18.8 Glucose 267 H Lactic Acid Calcium 9.4 Magnesium 2.1 Troponin I Rheumatoid Factor Cycl Citrul Peptide IgG DAVID Screen ALONA-1 Antibody SS-A/Ro IgG Antibody SS-B/La IgG Antibody Sm (Arana) Antibody MANAGER REPORTING Antibody Scl-70 Scleroderma Ab Double Strand DNA Ab Centromere B Antibody 02/27/19 02/27/19 02/27/19 05:14 14:02 14:02 WBC RBC Hgb Hct MCV MCH MCHC RDW Std Deviation RDW Coeff of Paz Plt Count MPV Immature Gran % (Auto) Neut % (Auto) Lymph % (Auto) Gilliam % (Auto) Eos % (Auto) Baso % (Auto) Absolute Neuts (auto) Absolute Lymphs (auto) Nucleated RBC % Diff Path Review Reactive Lymphocytes Platelet Estimate RBC Morphology Sodium 143 Potassium 3.5 Chloride 106 Carbon Dioxide 29.0 Anion Gap 8 BUN 27 H Creatinine 0.83 Estim Creat Clear Calc 38.07 Est GFR (MDRD) Af Amer 84 Est GFR (MDRD) Non-Af 70 BUN/Creatinine Ratio 32.6 H Glucose 149 H Lactic Acid Calcium 9.5 Magnesium Troponin I Rheumatoid Factor < 10.0 Cycl Citrul Peptide IgG DAVID Screen Pending ALONA-1 Antibody Pending SS-A/Ro IgG Antibody Pending SS-B/La IgG Antibody Pending Sm (Arana) Antibody Pending MANAGER REPORTING Antibody Pending Scl-70 Scleroderma Ab Pending Double Strand DNA Ab Pending Centromere B Antibody Pending 02/27/19 14:02 WBC RBC Hgb Hct MCV MCH MCHC RDW Std Deviation RDW Coeff of Paz Plt Count MPV Immature Gran % (Auto) Neut % (Auto) Lymph % (Auto) Gilliam % (Auto) Eos % (Auto) Baso % (Auto) Absolute Neuts (auto) Absolute Lymphs (auto) Nucleated RBC % Diff Path Review Reactive Lymphocytes Platelet Estimate RBC Morphology Sodium Potassium Chloride Carbon Dioxide Anion Gap BUN Creatinine Estim Creat Clear Calc Est GFR (MDRD) Af Amer Est GFR (MDRD) Non-Af BUN/Creatinine Ratio Glucose Lactic Acid Calcium Magnesium Troponin I Rheumatoid Factor Cycl Citrul Peptide IgG Pending DAVID Screen ALONA-1 Antibody SS-A/Ro IgG Antibody SS-B/La IgG Antibody Sm (Arana) Antibody MANAGER REPORTING Antibody Scl-70 Scleroderma Ab Double Strand DNA Ab Centromere B Antibody Microbiology 02/26/19 15:20 Mucosa - Nasopharyngeal Respiratory Panel (PCR) - Final Clinical Impression(s) from Imaging Studies Chest X-Ray 02/26/19 09:57 IMPRESSION: Progressive increased interstitial markings with areas of confluence in both lungs worse in the left lung suggestive of progressive chronic interstitial fibrosis and possible mild degree of superimposed CHF. Electronically Signed: Marino Anthony, at 10:37 EDT , Service support , Chest CTA 02/27/19 13:36 IMPRESSION: Stable examination. No evidence of pulmonary embolism. Electronically Signed: Marino Anthony, at 15:07 EDT , Service support , Medical Necessity - Tobacco Use Smoking Status: Never smoker Tobacco Use: Non-smoker Assessment/Plan All Active Problems Acute and chronic respiratory failure with hypoxia (Acute) Debility (Acute) Shortness of breath (Acute) Hypoxia (Acute) Hypokalemia (Acute) Acute respiratory alkalosis (Acute) Hypokalemic alkalosis (Acute) Sensation of gaseous abdominal fullness (Acute) RECOMMENDATIONS: 1. Continue empiric antimicrobials for now. Antibiotics can be discontinued after 5 days. 2. Continue corticosteroids as ordered. 3. Wean supplemental oxygen as tolerated. 4. Perform walking oximetry study prior to consideration for discharge. The patient needs to be able to maintain appropriate saturations with ambulation on 6 L/ min or less of continuous flow O2. 5. The patient needs to be seen by her primary pulmonary provider within 2 weeks of her discharge from the hospital. IMPRESSIONS: 1. Acute on chronic hypoxemic respiratory failure The patient apparently has some form of interstitial lung disease, which is followed longitudinally by Dr. Higginbotham at the [facility]. 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 However, I do not have F records available to me to confirm her actual diagnosis. Regardless, the patient does appear to be benefiting clinically from the use of corticosteroids. This would suggest that she has a steroid responsive interstitial lung process. Unfortunately, prednisone has to be utilized for a prolonged period often times in these patients. Therefore, I would plan to continue IV steroids for now, with plans to transition to prednisone 40 mg daily once the patient is ready for discharge. I would then suggest that she remain on that dose of prednisone until she is followed up by her primary pulmonary provider. Continue to wean supplemental oxygen as tolerated. Based upon her recent CTA obtained yesterday, I have a low clinical index of suspicion for underlying pulmonary infectious process. Nevertheless, I would recommend that we continue her antibiotics for a total of 5 days. The patient needs to have a walking oximetry study completed prior to consideration for discharge. She also needs to be seen by her pulmonary provider within 2 weeks of discharge. 2. Advanced age/hypertension/CODE STATUS Complicates care, management, recovery and prognosis. CODE STATUS confirmed to be DNR CCA without intubation. Okay to continue home medications. This note was generated with [employer] dictation software. It may contain incorrect words, spelling, and punctuation that were not noted in checking the note before signing. Code Visit Inpatient E&M: 06621 Subs Hosp L2
[2019-02-28] MEDS: amLODIPine 10 MG Tablet PO (07:43)
[2019-02-28] MEDS: Enoxaparin 40 MG/0.4 ML Syringe SC (07:44)
[2019-02-28] MEDS: Psyllium 1 PACKET PO (07:44)
[2019-02-28 09:26] LABS: Pathologist Review Reviewed
[2019-02-28] MEDS: Ceftriaxone 1 GM/50 ML BAG IV (09:29)
--- NOTE | 2019-02-28 10:50 | CASEMGMT ---
Per PA patient would be a good Palliative Care candidate. Electronic Industrial Controls Mechanic spoke with patient and her son about Hospice. Patient was adamant she is not going Hospice. She has the impression Hospice kills people. Patient's son also told physician patient is not going to be able to go home as she is too weak. FLO met with patient's son, Sean. Introduced self and role at [facility]. He said patient is resting so he would prefer to talk in the hallway. He confirmed patient will need to go somewhere at d/c. He would prefer TCU. SW provided him with a list of SNF's in the are in the event TCU does not have a bed. SW spoke with him about Palliative Care. He said right now patient is overwhelmed with trying to deal with everything. FLO told him SW will check with TCU and let him know. Desiree BRUNNER
--- NOTE | 2019-02-28 11:34 | CASEMGMT ---
LW/POA in summary tab of [employer], Jordon Birch is listed as POA. GARIMA Mares
--- NOTE | 2019-02-28 11:45 | CASEMGMT ---
TCU will have a bed for patient. SW notified patient's son and patient. Patient told SW she does not think she is going to make it out of the hospital. She said she is ready to go to [facility]. SW sat down with patient and explored the idea of Hospice again. SW asked her what her reservations were with Hospice. She said she has 2 friends that sent their husbands to the facility. They were given shots and immediately afterwards. SW told her SW can assure her that Hospice does not speed up the process of they just keep people comfortable until they . She said she knows this. SW asked if she would like to talk with them and she said she is not interested right now. Patient said she wants to rest now so SW left the room. Plan: [facility] TCU pending patient being medically ready. Desiree HIGGINS MSW
--- NOTE | 2019-02-28 12:47 | CHAPLAIN ---
Type of Pastoral Visit ___ Initial Visit _x__ Follow-up Visit ___ On-call Visit ___ General Patient Visit ___ Spiritual Assessment ___ Family Conference ___ Bereavement ___ Rapid Response ___ Code Blue _x__ Other (describe below) Pastoral Care Referral From ___ Patient _x__ Family ___ Nurse ___ Physician ___ Contract Preparer ___ Product Handler ___ Other (describe below) Sacrament/Intervention _x__ Active listening ___ Anointing ___ Orthodox ___ Bereavement ___ Communion ___ Holly exploration ___ ___ Life review _x__ Prayer ___ Reconciliation ___ Sacrament of Sick _x__ Supportive presence ___ Wedding ___ Other (describe below) Pastoral Comments son of patient met this shot peening operator in hallway and invited same into room to pray with the patient; son explains that condition of pt is only going to get worse and life expectancy is short; pt acknowledges the same and states, Oh, I am so ready to go; this patient has made similar statements to this shot peening operator in previous visits; we talk of letting God take control and offering support and comfort; later conversation continued with two sons in the hallway to offer support to family as needed; pharmacy services representative from [place] also came and is aware of condition of patient; spiritual care will be continued with [facility] and this shot peening operator as requested by family
--- NOTE | 2019-02-28 13:18 | PN_ITS ---
Patient Problems: Active and Suspected Problems Hypoxia (Acute) Hypokalemia (Acute) Subjective: Pt remains SOB severely worse with exertion. She has conversational dyspnea with only a few words. She is SOB lying in bed. She has a chronic dry cough. No fever/chills. She states she wants to and that she is ready. She will not c onsider hospice stating that they give medicine to kill you, and that it happened to two people she has known. She is agreeable to palliative care. - Physical Exam General: Alert, Oriented x3, Cooperative HEENT: Atraumatic, PERRLA, EOMI, Normocephalic Neck: Supple, No JVD, Negative Carotid Bruits Lungs: No rales, Diminished, Short of Breath, - - conversational dyspnea Cardiovascular: Regular rate, No murmurs Abdomen: Bowel Sounds Present, Soft, Non Tender Extremities: No edema, Capillary Refill Less than 3 Seconds Skin: No rashes, No breakdown Musculoskeletal: No Tenderness to Palpation of Joints or Extremities Neurological: Cranial nerves II-XII grossly intact Psych/Mental Status: Normal Affect, Appropriate, Alert and oriented to time, place, person, mood and affect Vital Signs Temp Pulse Resp BP Pulse Ox 97.6 F L 89 16 115/63 98 02/28/19 09:05 02/28/19 09:05 02/28/19 09:05 02/28/19 09:05 02/28/19 09:05 Oxygen Flow Rate (L/min) 5 Oxygen Delivery Method Nasal Cannula Weight: 108 lb 7.479 oz Body Mass Index (BMI) 20.2 Intake and Output for Last 24 Hours 02/26/19 02/27/19 02/28/19 23:59 23:59 23:59 Intake Total 995 / 995 885 / 885 655 / 655 Balance 995 / 995 885 / 885 655 / 655 Microbiology Past 72 Hours 02/26/19 15:20 Respiratory Panel (PCR) - Final Mucosa - Nasopharyngeal Laboratory Tests Past 24 Hrs 02/26/19 02/27/19 02/27/19 10:15 14:02 14:02 Diff Path Review Reviewed Rheumatoid Factor < 10.0 Cycl Citrul Peptide IgG DAVID Screen Pending ALONA-1 Antibody Pending SS-A/Ro IgG Antibody Pending SS-B/La IgG Antibody Pending Sm (Arana) Antibody Pending ACCOUNT RETENTION REPRESENTATIVE Antibody Pending Scl-70 Scleroderma Ab Pending Double Strand DNA Ab Pending Centromere B Antibody Pending 02/27/19 14:02 Diff Path Review Rheumatoid Factor Cycl Citrul Peptide IgG Pending DAVID Screen ALONA-1 Antibody SS-A/Ro IgG Antibody SS-B/La IgG Antibody Sm (Arana) Antibody ACCOUNT RETENTION REPRESENTATIVE Antibody Scl-70 Scleroderma Ab Double Strand DNA Ab Centromere B Antibody Medical Necessity - Tobacco Use Smoking Status: Never smoker Tobacco Use: Non-smoker Assessment/Plan All Active Problems Acute and chronic respiratory failure with hypoxia (Acute) Debility (Acute) Shortness of breath (Acute) Hypoxia (Acute) Hypokalemia (Acute) Acute respiratory alkalosis (Acute) Hypokalemic alkalosis (Acute) Sensation of gaseous abdominal fullness (Acute) 1. Acute on chronic combined respiratory failure 2/2 Exacerbation of underlying NSIP/Pulmonary fibrosis - continue steroids. O2 requirement is improving. She will need a protracted taper of Prednisone at DC. Rheumatoid panel done. Pulm following. O/p follow up closely with Dr. Higginbotham. Abx DCd. 2. Moderate Pulmonary HTN - complicating above. No evidence of volume overload at this point. 3. HTN - stable 4. Debility - PTOT DVT ppx: lovenox DC planning: Palliative consult. DC to SNF when appropriate. Walking pulse ox prior to DC. May need new home concentrator - she thinks hers is not functioning correctly (won't provide more than 4lpm). This patient was seen by Maurilio Sanders PA-C under the supervision of Dr. Wilson.
[2019-02-28 16:50] LABS: ANTINUCLEAR ANTIBODIES DIRECT Negative (Negative)
[2019-03-01] VITALS (10 sets, daily range): BP systolic 101–126; BP diastolic 59–81; PULSE 74–100; RESP 16–18; TEMP 36.5–36.8; O2SAT 92–98
[2019-03-01] MEDS: 0.9% NaCl Peripheral Flush Adult/Peds IV ×2 (05:13→21:48)
[2019-03-01 06:30] LABS: Anion Gap 10 (5-15); BUN 44 mg/dL (7-18); BUN/Creat Ratio 43.6 RATIO (10-20); Calcium,Total 9.7 mg/dL (8.5-10.1); Chloride 104 mmol/L (98-107); Creatinine, Serum 1.01 mg/dL (0.55-1.02); EST Glomerular Filtration Rate 55 mL/min (>60); Est Glom Filt Rate - Afr Amer 67 mL/min (>60); Estimated Creatinine Clearance 31.29 ml/min; Glucose 143 mg/dL (74-106); Potassium 4.3 mmol/L (3.5-5.1); Sodium Level 144 mmol/L (136-145)
--- NOTE | 2019-03-01 07:47 | PN_ITS ---
Patient Problems: Active and Suspected Problems Hypoxia (Acute) Hypokalemia (Acute) Subjective: The patient was seen and examined at the bedside this morning. Events from the last 24 hours have been reviewed. The patient is currently afebrile, hemodynamically stable and maintaining appropriate oxygen saturations on 4 L/min via nasal cannula. The patient is still short of breath with even minimal amounts of physical exertion. She once again voiced a desire not to remain on prednisone for treatment of her underlying lung disease. The patient's wishes do seem most consistent with a desire to institute comfort care measures. She does seem agreeable to talking with hospice care representatives today. Objective: The patient's most recent lab work, culture data and imaging studies have all been personally reviewed. Surface echocardiogram dated February 2019 revealed evidence of stage I diastolic dysfunction with an ejection fraction of 65%. Right ventricular systolic pressure was estimated to be 48 mmHg. The patient was last seen in the office of her primary pulmonary provider at the [facility] on February 08. At that time, the patient was noted to have a 3 L/min supplemental oxygen requirement. Ironically, although spirometry and diffusing capacity have been completed in the past, most recently as February 2019, the patient does not appear to ever have had lung volumes completed. A CT chest without contrast completed in September 2014 revealed no evidence of mediastinal or hilar adenopathy. Subpleural interstitial lung densities, linear and reticular opacities were noted bilaterally. 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 I do not know that the patient has ever had a lung biopsy or autoimmune/rheumatologic work-up completed in the past. - Physical Exam General: Alert, Cooperative, No apparent distress HEENT: Atraumatic, PERRLA, Normocephalic Oral: No Gingival or Mucosal Lesions/ Ulcerations Neck: Supple, No Nodes, Trachea Midline Lungs: - - No significant interval change with coarse crackles bilateral. Cardiovascular: Regular rate, Regular Rhythm, Normal S1, Normal S2 Abdomen: Bowel Sounds Present, Soft, Non Tender Extremities: No clubbing, No cyanosis, No edema Skin: No breakdown Musculoskeletal: No Tenderness to Palpation of Joints or Extremities Lymphatic: No Cervical, Supraclavicular, or Inguinal Adenopathy Neurological: Cranial nerves II-XII grossly intact, Neuro grossly intact Psych/Mental Status: Alert and oriented to time, place, person, mood and affect Vital Signs Temp Pulse Resp BP Pulse Ox 98.1 F 79 18 110/73 92 03/01/19 03:05 03/01/19 03:05 03/01/19 03:05 03/01/19 03:05 03/01/19 06:57 Oxygen Flow Rate (L/min) 4 Oxygen Delivery Method Nasal Cannula Weight: 106 lb 0.677 oz Body Mass Index (BMI) 20.2 Intake and Output for Last 24 Hours 02/27/19 02/28/19 03/01/19 23:59 23:59 23:59 Intake Total 885 / 885 1055 / 1055 50 / 50 Balance 885 / 885 1055 / 1055 50 / 50 Microbiology Past 72 Hours 02/26/19 10:15 Blood Culture - Preliminary Blood Culture (Wb) - Anticubital Left No growth in 48 hours. 02/26/19 15:20 Respiratory Panel (PCR) - Final Mucosa - Nasopharyngeal Laboratory Tests Past 24 Hrs 02/26/19 02/27/19 03/01/19 10:15 14:02 05:32 Diff Path Review Reviewed Sodium 144 Potassium 4.3 Chloride 104 Carbon Dioxide 30.0 Anion Gap 10 BUN 44 H Creatinine 1.01 Estim Creat Clear Calc 31.29 Est GFR (MDRD) Af Amer 67 Est GFR (MDRD) Non-Af 55 L BUN/Creatinine Ratio 43.6 H Glucose 143 H Calcium 9.7 DAVID Screen Negative ALONA-1 Antibody Not Reportable SS-A/Ro IgG Antibody Not Reportable SS-B/La IgG Antibody Not Reportable Sm (Arana) Antibody Not Reportable MEDTRONICS TECHNICIAN Antibody Not Reportable Scl-70 Scleroderma Ab Not Reportable Double Strand DNA Ab Not Reportable Centromere B Antibody Not Reportable Clinical Impression(s) from Imaging Studies Chest X-Ray 02/26/19 09:57 IMPRESSION: Progressive increased interstitial markings with areas of confluence in both lungs worse in the left lung suggestive of progressive chronic interstitial fibrosis and possible mild degree of superimposed CHF. Electronically Signed: Marino Anthony, at 10:37 EDT , Service support , Chest CTA 02/27/19 13:36 IMPRESSION: Stable examination. No evidence of pulmonary embolism. Electronically Signed: Marino Anthony, at 15:07 EDT , Service support , Medical Necessity - Tobacco Use Smoking Status: Never smoker Tobacco Use: Non-smoker Assessment/Plan All Active Problems Acute and chronic respiratory failure with hypoxia (Acute) Debility (Acute) Shortness of breath (Acute) Hypoxia (Acute) Hypokalemia (Acute) Acute respiratory alkalosis (Acute) Hypokalemic alkalosis (Acute) Sensation of gaseous abdominal fullness (Acute) RECOMMENDATIONS: 1. Continue corticosteroids for now. 2. Recommend referral be placed to hospice. 3. Wean supplemental oxygen as tolerated. 4. Perform walking oximetry study prior to consideration for discharge. The patient needs to be able to maintain appropriate saturations with ambulation on 6 L/ min or less of continuous flow O2. IMPRESSIONS: 1. Acute on chronic hypoxemic respiratory failure The patient apparently has some form of interstitial lung disease, which is followed longitudinally by Dr. Higginbotham at the [facility]. 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 However, I do not have [facility] records available to me to confirm her actual diagnosis. Regardless, the patient does appear to be benefiting clinically from the use of corticosteroids. This would suggest that she has a steroid responsive interstitial lung process. Unfortunately, prednisone has to be utilized for a prolonged period often times in these patients. Therefore, I would plan to continue IV steroids for now, with plans to transition to prednisone 40 mg daily once the patient is ready for discharge. I would then suggest that she remain on that dose of prednisone until she is followed up by her primary pulmonary provider. Continue to wean supplemental oxygen as tolerated. Based upon her recent CTA obtained yesterday, I have a low clinical index of suspicion for underlying pulmonary infectious process. I do suspect that based upon the patient's wishes conveyed to me several occasions at the bedside, that she would be most appropriate for enrollment hospice care services. 2. Advanced age/hypertension/CODE STATUS Complicates care, management, recovery and prognosis. CODE STATUS confirmed to be DNR CCA without intubation. Okay to continue home medications. This note was generated with Lanyonation software. It may contain incorrect words, spelling, and punctuation that were not noted in checking the note before signing. Code Visit Inpatient E&M: 99848 Subs Hosp L2
[2019-03-01] MEDS: Docusate Sodium 100 MG Capsule PO (09:08)
[2019-03-01] MEDS: Enoxaparin 40 MG/0.4 ML Syringe SC (09:09)
[2019-03-01] MEDS: Psyllium 1 PACKET PO (09:09)
[2019-03-01] MEDS: amLODIPine 10 MG Tablet PO (09:09)
--- NOTE | 2019-03-01 09:46 | PN_ITS ---
Patient Problems: Active and Suspected Problems Hypoxia (Acute) Hypokalemia (Acute) Subjective: Pt states that she is not sure how she feels. States that she is ready to right now. Has a deal with her sons that she will stick around long enough to see them and say goodbye. Sons at bedside. Very dyspneic on conversation and rec overy is extended. Vitals/I&O's: Vital Signs Temp Pulse Resp BP Pulse Ox 98.2 F 100 18 101/63 92 03/01/19 09:04 03/01/19 09:04 03/01/19 09:04 03/01/19 09:04 03/01/19 09:04 Oxygen Flow Rate (L/min) 4 Oxygen Delivery Method Nasal Cannula Weight: 48.1 kg Body Mass Index (BMI) 20.2 Intake and Output for Last 24 Hours 02/27/19 02/28/19 03/01/19 23:59 23:59 23:59 Intake Total 885 / 885 1055 / 1055 50 / 50 Balance 885 / 885 1055 / 1055 50 / 50 General: Alert, Oriented x3, Cooperative, - - dyspeic with conversation HEENT: Atraumatic, EOMI, Normocephalic Oral: Moist Mucosa, No Gingival or Mucosal Lesions/ Ulcerations, - - no thrush Neck: Supple, Negative Hepatojugular Reflux, No Nodes, No Nuchal Rigidity, Trachea Midline, Thyroid Normal Size and Texture Lungs: No rhonchi, No wheeze, Short of Breath, Tachypneic, Using Accessory Muscles - occasionally, - - scattered diffuse fine crackles, dysnea with simple conversation Cardiovascular: Regular Rhythm, Normal S1, Normal S2, No murmurs, No Ectopic Activity, Tachycardic Abdomen: Bowel Sounds Present, Soft, Non Tender, Non-Distended, No Hepato- splenomegaly, No hernias noted Extremities: No cyanosis, No edema, Clubbing - mild, Peripheral Pulses Normal Skin: No rashes, No breakdown, - - thin skin Musculoskeletal: No Tenderness to Palpation of Joints or Extremities, Muscle Wasting, - - significant decrease in lean mm mass Lymphatic: - - no cervical or supraclavicular LAD Neurological: Cranial nerves II-XII grossly intact, Neuro grossly intact, Muscle tone normal, Coordination normal Psych/Mental Status: Appropriate, Anxious, Alert and oriented to time, place, person, mood and affect Microbiology Past 72 Hours 02/26/19 10:15 Blood Culture (Wb) - Anticubital Left Blood Culture - Preliminary No growth in 48 hours. 02/26/19 15:20 Mucosa - Nasopharyngeal Respiratory Panel (PCR) - Final Laboratory Results 02/27/19 14:02: DAVID Screen Negative, ALONA-1 Antibody Not Reportable, SS-A/Ro IgG Antibody Not Reportable, SS-B/La IgG Antibody Not Reportable, Sm (Arana) Antibody Not Reportable, FURNITURE UPHOLSTERER Antibody Not Reportable, Scl-70 Scleroderma Ab Not Reportable, Double Strand DNA Ab Not Reportable, Centromere B Antibody Not Reportable 03/01/19 05:32: Sodium 144, Potassium 4.3, Chloride 104, Carbon Dioxide 30.0, Anion Gap 10, BUN 44 H, Creatinine 1.01, Estim Creat Clear Calc 31.29, Est GFR (MDRD) Af Amer 67, Est GFR (MDRD) Non-Af 55 L, BUN/Creatinine Ratio 43.6 H, Glucose 143 H, Calcium 9.7 Current Medications Acetaminophen (Tylenol) 650 mg PO Q6H PRN PRN PRN Reason: Non-cardiac pain (mod-severe) Hydrocodone Bitart/Acetaminophen ([place] 5mg-325mg) 1 - 2 tablet PO Q6H PRN PRN PRN Reason: MOD-SEVERE PAIN (4-10/10) Al Hydroxide/Mg Hydroxide (Mylanta Ii) 15 - 30 ml PO Q4H PRN PRN PRN Reason: INDIGESTION Albuterol Sulfate (Ventolin Aerosols) 2.5 mg INHALATION Q2H PRN PRN PRN Reason: dyspnea, wheezing Last Admin: 02/27/19 08:33 Dose: 2.5 mg Documented by: Amlodipine Besylate (Norvasc) 10 mg PO DAILY [facility] Last Admin: 03/01/19 09:09 Dose: 10 mg Documented by: Calamine/Phenol (Calmoseptine Ointment) 1 applic TOPICAL 0600,2200 [facility]; Protocol Last Admin: 03/01/19 05:10 Dose: Not Given Documented by: Dextrose (D50w Syringe) 0 gm IV X1 PRN; Protocol PRN Reason: Hypoglycemia Docusate Sodium (Colace) 100 mg PO DAILY [facility] Last Admin: 03/01/19 09:08 Dose: 100 mg Documented by: Enoxaparin Sodium (Lovenox) 40 mg SC DAILY@1000 [facility] Last Admin: 03/01/19 09:09 Dose: 40 mg Documented by: Glucagon () 1 mg IM .X1 PRN PRN Reason: Hypoglycemia Guaifenesin (Robitussin) 20 ml PO Q4H PRN PRN PRN Reason: COUGH Hydralazine HCl (Apresoline Iv) 10 mg IV Q4H PRN PRN PRN Reason: SBP > 160 Sodium Chloride () 250 mls @ 15 mls/hr IV .[id number] PRN PRN Reason: SALINE FLUSH Lactobacillus Acidophilus (Acidophilus) 1 tablet PO 4X/DAY [facility] Last Admin: 03/01/19 09:08 Dose: 1 tablet Documented by: Magnesium Hydroxide (Milk Of Magnesia) 30 ml PO DAILY PRN PRN Reason: Constipation Melatonin (Melatonin) 3 mg PO QHS PRN PRN PRN Reason: INSOMNIA Methylprednisolone (Solu-Medrol) 40 mg IV Q12 [facility] Morphine Sulfate () 1 - 2 mg IV Q4H PRN PRN PRN Reason: PAIN Nitroglycerin (Nitrostat) 0.4 mg SUBLINGUAL Q5M PRN PRN Reason: CARDIAC/CHEST PAIN Ondansetron HCl (Zofran) 4 mg IV Q8H PRN PRN PRN Reason: NAUSEA/VOMITING Psyllium Hydrophilic Mucilloid (Metamucil) 1 packet PO DAILY [facility] Last Admin: 03/01/19 09:09 Dose: 1 packet Documented by: Sodium Chloride () 10 - 40 ml IV UD PRN PRN Reason: SALINE FLUSH Last Admin: 03/01/19 05:13 Dose: 10 ml Documented by: Throat Lozenges (Cepacol Sore Throat Lozenge) 1 lozenge MUCOUS MEM Q2H PRN PRN PRN Reason: Sore throat or cough Medical Necessity - Tobacco Use Smoking Status: Never smoker Tobacco Use: Non-smoker Assessment/Plan All Active Problems Acute and chronic respiratory failure with hypoxia (Acute) Debility (Acute) Shortness of breath (Acute) Hypoxia (Acute) Hypokalemia (Acute) Acute respiratory alkalosis (Acute) Hypokalemic alkalosis (Acute) Sensation of gaseous abdominal fullness (Acute) 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 -has been on 4-5 L of O2 for at least 5 yrs now -follows with Pulm at [facility]--> no records sent yet -continue steroids but wean to 40 mg IV BID with goal of 40 mg daily at home -seems to be fairly steroid responsive -continue ABX for now -Viral PCR neg -Appreciate pulm input -Rheum panel neg -will add low dose liquid morphine for air hunger dyspnea Moderate PAH -no need for diuresis at the present time -will monitor volume status HTN -continue Norvasc Constipation -add miralax DVT prophylaxis -Lovenox End of Life Discussion -pt is very clear today that she no longer wants to live life like she is currently and is stating that she wants to today. She has been resistant to discussing hospice as she has some friends that have had bad experiences and killed her friends family members. Her goal is to stay as lucid as possible but maintain comfort. She is aware that there may become a time when she needs more medication to keep her comfortable and will then be less lucid but this is a result of the disease progression and the goal is to curb suffering. She and her son Sean are willing to talk to hospice. Hospice consult placed. Continue DNR-CCA for now. Pt is hospice appropriate. Code Visit Inpatient E&M: 81027 Subs Hosp L3
[2019-03-01] MEDS: Polyethylene Glycol 3350 17 GM PACKET PO (11:45)
--- NOTE | 2019-03-01 11:57 | CASEMGMT ---
Physicians spoke with patient and her son. They agreed to talk with Hospice. FLO spoke with patient's son. He told SW patient is ready to , but she wants to see some family members that won't be able to come into town for a week or week and a half. She feels if she goes to Hospice they will stop the steroids and she will go before any family can make it here. FLO told him that SW will evaluate and they determine what they can or can't offer regarding medications. He said they were thinking about her going to TCU get some therapy and then after she says her goodbyes go Hospice. They are still in agreement with talking to Hospice. FLO told him SW will call and see when they can come out and then let him know. FLO called Hospice and spoke with Alyson regarding referral. She asked if patient was getting anything to help with her shortness of breath. FLO told her the physician was going to try Roxanol. She said she feels this would need to be tried before they would take her in the inpatient unit. She said someone could be here at noon. FLO passed along this message to patient's son, physician, RN, and auditor in charge. Plan: Inpatient Hospice versus TCU Desiree HIGGINS MSW
[2019-03-01 12:59] LABS: CCP IgG Antibodies 3 units (0-19)
--- NOTE | 2019-03-01 13:09 | CASEMGMT ---
Hospice is here talking with patient and family. Desiree HIGGINS OFFICE SPECIALIST
--- NOTE | 2019-03-01 13:44 | CASEMGMT ---
FLO spoke with Tami from Hospice. Patient's son, Sean wanted to talk with Tami outside the room. She said that she is coming back tomorrow at 930a and they will have made a decision. FLO told her that it is a bit concerning that the son always wants to talk with everyone outside of the room even though patient is alert and oriented. She said tomorrow she will insist on including patient on the conversation. SW will update physician. Plan: Hospice will return tomorrow at 930a to talk with patient and her son. They will let her know their decision. Options are TCU for rehab and then Hospice after, Inpatient Hospice unit (if she qualifies), or community SNF on Hospice. Desiree HIGGINS MSW
[2019-03-01] MEDS: Menthol/Lanolin/Calamine/Znox 113 GM Tube 1 APPLIC TOPICAL (21:47)
[2019-03-02 03:03] VITALS: PULSE 67
[2019-03-02 03:28] VITALS: BP 125/74; PULSE 74; RESP 16; TEMP 36.6; O2SAT 97
[2019-03-02] MEDS: Menthol/Lanolin/Calamine/Znox 113 GM Tube 1 APPLIC TOPICAL (06:21)
[2019-03-02 07:14] VITALS: PULSE 65
[2019-03-02 08:51] VITALS: O2SAT 99
[2019-03-02 09:30] VITALS: BP 122/73; PULSE 73; RESP 18; TEMP 36.6; O2SAT 98
--- NOTE | 2019-03-02 09:50 | PCM.PN.PUL ---
Subjective: The patient was seen and examined at the bedside this morning. Events from the last 24 hours have been reviewed. The patient is currently afebrile, hemodynamically stable and maintaining appropriate oxygen saturations on 4 L/min via nasal cannula. Family is planning to meet once again with hospice this morning to discuss goals of care. Objective: The patient's most recent lab work, culture data and imaging studies have all been personally reviewed. Surface echocardiogram dated February 2019 revealed evidence of stage I diastolic dysfunction with an ejection fraction of 65%. Right ventricular systolic pressure was estimated to be 48 mmHg. The patient was last seen in the office of her primary pulmonary provider at the [facility] on February 08. At that time, the patient was noted to have a 3 L/min supplemental oxygen requirement. Ironically, although spirometry and diffusing capacity have been completed in the past, most recently as February 2019, the patient does not appear to ever have had lung volumes completed. A CT chest without contrast completed in September 2014 revealed no evidence of mediastinal or hilar adenopathy. Subpleural interstitial lung densities, linear and reticular opacities were noted bilaterally. 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 I do not know that the patient has ever had a lung biopsy or autoimmune/rheumatologic work-up completed in the past. - Physical Exam General: Alert, Cooperative, No apparent distress HEENT: Atraumatic, Normocephalic Oral: No Gingival or Mucosal Lesions/ Ulcerations Neck: Supple, No Nodes, Trachea Midline Lungs: Diminished, Rales Cardiovascular: Regular rate, Regular Rhythm, Normal S1, Normal S2 Abdomen: Bowel Sounds Present, Soft, Non Tender Extremities: No clubbing, No cyanosis, No edema Skin: No breakdown Musculoskeletal: No Tenderness to Palpation of Joints or Extremities Lymphatic: No Cervical, Supraclavicular, or Inguinal Adenopathy Neurological: Cranial nerves II-XII grossly intact, Neuro grossly intact Psych/Mental Status: Normal Affect, Appropriate Vital Signs Temp Pulse Resp BP Pulse Ox 98 F 73 18 122/73 H 98 03/02/19 09:30 03/02/19 09:30 03/02/19 09:30 03/02/19 09:30 03/02/19 09:30 Oxygen Flow Rate (L/min) 4 Oxygen Delivery Method Nasal Cannula Weight: 106 lb 4.205 oz Body Mass Index (BMI) 20.2 Intake and Output for Last 24 Hours 02/28/19 03/01/19 03/02/19 23:59 23:59 23:59 Intake Total 1055 / 1055 350 / 350 75 / 75 Output Total 150 / 150 Balance 1055 / 1055 200 / 200 75 / 75 Microbiology Past 72 Hours 02/26/19 10:15 Blood Culture - Preliminary Blood Culture (Wb) - Anticubital Left No growth in 48 hours. Laboratory Tests Past 24 Hrs 02/27/19 14:02 Cycl Citrul Peptide IgG 3 Labs (Last 48 Hours) 02/27/19 02/27/19 03/01/19 14:02 14:02 05:32 Sodium 144 Potassium 4.3 Chloride 104 Carbon Dioxide 30.0 Anion Gap 10 BUN 44 H Creatinine 1.01 Estim Creat Clear Calc 31.29 Est GFR (MDRD) Af Amer 67 Est GFR (MDRD) Non-Af 55 L BUN/Creatinine Ratio 43.6 H Glucose 143 H Calcium 9.7 Cycl Citrul Peptide IgG 3 DAVID Screen Negative ALONA-1 Antibody Not Reportable SS-A/Ro IgG Antibody Not Reportable SS-B/La IgG Antibody Not Reportable Sm (Arana) Antibody Not Reportable B2B SALES CONSULTANT Antibody Not Reportable Scl-70 Scleroderma Ab Not Reportable Double Strand DNA Ab Not Reportable Centromere B Antibody Not Reportable Microbiology 02/26/19 10:15 Blood Culture (Wb) - Anticubital Left Blood Culture - Preliminary No growth in 48 hours. Clinical Impression(s) from Imaging Studies Chest X-Ray 02/26/19 09:57 IMPRESSION: Progressive increased interstitial markings with areas of confluence in both lungs worse in the left lung suggestive of progressive chronic interstitial fibrosis and possible mild degree of superimposed CHF. Electronically Signed: Marino Anthony, at 10:37 EDT , Service support , Chest CTA 02/27/19 13:36 IMPRESSION: Stable examination. No evidence of pulmonary embolism. Electronically Signed: Marino Anthony, at 15:07 EDT , Service support , Medical Necessity - Tobacco Use Smoking Status: Never smoker Tobacco Use: Non-smoker Assessment/Plan All Active Problems Acute and chronic respiratory failure with hypoxia (Acute) Debility (Acute) Shortness of breath (Acute) Hypoxia (Acute) Hypokalemia (Acute) Acute respiratory alkalosis (Acute) Hypokalemic alkalosis (Acute) Sensation of gaseous abdominal fullness (Acute) RECOMMENDATIONS: 1. Continue corticosteroids for now. 2. Await family decision after discussion with hospice care regarding goals of care. 3. Wean supplemental oxygen as tolerated. IMPRESSIONS: 1. Acute on chronic hypoxemic respiratory failure The patient apparently has some form of interstitial lung disease, which is followed longitudinally by Dr. Higginbotham at the [facility]. 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 However, I do not have [facility] records available to me to confirm her actual diagnosis. Regardless, the patient does appear to be benefiting clinically from the use of corticosteroids. This would suggest that she has a steroid responsive interstitial lung process. Unfortunately, prednisone has to be utilized for a prolonged period often times in these patients. Therefore, I would plan to continue IV steroids for now, with plans to transition to prednisone 40 mg daily once the patient is ready for discharge. I would then suggest that she remain on that dose of prednisone until she is followed up by her primary pulmonary provider. Continue to wean supplemental oxygen as tolerated. Based upon her recent CTA obtained yesterday, I have a low clinical index of suspicion for underlying pulmonary infectious process. I do suspect that based upon the patient's wishes conveyed to me several occasions at the bedside, that she would be most appropriate for enrollment hospice care services. 2. Advanced age/hypertension/CODE STATUS Complicates care, management, recovery and prognosis. CODE STATUS confirmed to be DNR CCA without intubation. Okay to continue home medications. This note was generated with Wikis[employer] dictation software. It may contain incorrect words, spelling, and punctuation that were not noted in checking the note before signing. Code Visit Inpatient E&M: 11807 Subs Hosp L2
[2019-03-02] MEDS: Docusate Sodium 100 MG Capsule PO (10:05)
[2019-03-02] MEDS: amLODIPine 10 MG Tablet PO (10:05)
[2019-03-02] MEDS: Psyllium 1 PACKET PO (10:05)
[2019-03-02] MEDS: Enoxaparin 40 MG/0.4 ML Syringe SC (10:06)
[2019-03-02] MEDS: Polyethylene Glycol 3350 17 GM PACKET PO (10:06)
--- NOTE | 2019-03-02 10:31 | CASEMGMT ---
Patient will be going to the Inpatient Hospice unit. SW notified Cassy in TCU. Desiree HIGGINS MSW
--- NOTE | 2019-03-02 11:19 | NURSING ---
report called to hospice MEHDI Huang
--- NOTE | 2019-03-02 12:25 | DS.PCM_ITS ---
<Olivia Anaya - Last Filed: 03/02/19 12:32> Discharge Date and Diagnosis Date of Admission: 02/26/19 Date of Discharge: 03/02/19 - Primary Discharge Diagnosis Active and Suspected Problems 1. Acute on chronic hypoxemic respiratory failure secondary to progressively worsening NSIP/pulmonary fibrosis 2. Moderate pulmonary hypertension 3. Hypertension 4. History of C. difficile 5. 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 Electronically Signed: Marino Anthony, at 10:37 EDT , Service support , Chest CTA 02/27/19 13:36 IMPRESSION: Stable examination. No evidence of pulmonary embolism. Electronically Signed: Marino Anthony, at 15:07 EDT , Service support , Dr. Jorge- Pulmonary Medicine Operations: None, - - Laparoscopic sigmoid colectomy with mobilization of the splenic flexure Procedures: None Summary of Care Provided: The patient is a 83 year old F admitted 02/26/2019 due to progressively worsening dyspnea, hypoxia and fatigue. 1. Acute on chronic hypoxemic respiratory failure secondary to progressively worsening NSIP/pulmonary fibrosis-treated with IV steroids. Supplement oxygen to maintain O2 at or above 90%. Pulmonary medicine consulted. Chest CTA demonstrated no evidence of PE or infectious process. Patient and family wish for hospice transition and aggressive intervention discontinued. Inpatient hospice facility discharge. 2. Moderate pulmonary hypertension 3. Hypertension-stable. 4. History of C. difficile 5. Hospice transition-patient and family agreeable to hospice, discharge to inpatient unit. General: Alert, Oriented x3, Cooperative HEENT: Atraumatic, PERRLA, EOMI, Normocephalic Neck: Supple, No JVD, Negative Carotid Bruits Lungs: No rales, Diminished, Short of Breath, - - conversational dyspnea Cardiovascular: Regular rate, No murmurs Abdomen: Bowel Sounds Present, Soft, Non Tender Extremities: No edema, Capillary Refill Less than 3 Seconds Skin: No rashes, No breakdown Musculoskeletal: No Tenderness to Palpation of Joints or Extremities Neurological: Cranial nerves II-XII grossly intact Psych/Mental Status: Normal Affect, Appropriate, Alert and oriented to time, place, person, mood and affect Patient seen and examined prior to discharge. Physical assessment as noted above. Discharge to inpatient hospice medical facility. This patient was seen by LAITH Bernstein under the supervision of Dr. Palacio. - Physical Exam Vital Signs Temp Pulse Resp BP Pulse Ox 98 F 73 18 122/73 H 98 03/02/19 09:30 03/02/19 09:30 03/02/19 09:30 03/02/19 09:30 03/02/19 09:30 Oxygen Flow Rate (L/min) 4 Oxygen Delivery Method Nasal Cannula Weight: 106 lb 4.205 oz Body Mass Index (BMI) 20.2 Intake and Output for Last 24 Hours 02/28/19 03/01/19 03/02/19 23:59 23:59 23:59 Intake Total 1055 / 1055 350 / 350 75 / 75 Output Total 150 / 150 Balance 1055 / 1055 200 / 200 75 / 75 Microbiology Past 72 Hours 02/26/19 10:15 Blood Culture - Preliminary Blood Culture (Wb) - Anticubital Left No growth in 48 hours. Laboratory Tests Past 24 Hrs 02/27/19 14:02 Cycl Citrul Peptide IgG 3 Home Medications: Medications to take at Discharge Amlodipine [Norvasc] 10 mg PO DAILY 06/20/13 Weldon-3 Fatty Acids/Fish Oil [Weldon 3 Fish Oil Softgel] 1 cap PO DAILY 06/20/13 Ubidecarenone [Co Q-10] 100 mg PO DAILY 06/20/13 Cholecalciferol (Vitamin D3) [D3-2000] 2,000 unit PO DAILY 02/08/19 Lactobacillus Acidophilus [Acidophilus] 1 cap PO DAILY 02/08/19 Vitamin B Complex 1 ea PO DAILY 02/08/19 Acetaminophen [Tylenol] 1,000 mg PO Q6H PRN tab 02/19/19 Menthol/Lanolin/Calamine/Znox [Calmoseptine Ointment] 1 applic TOPICAL 0600,2200 tube 02/19/19 Primary Care Physician: Rakel Franco MD [Primary Care Provider] - Disposition: Hospice Medical Facility Minutes spent on discharge:: 35 Patient Condition:: Guarded Medical Necessity - Tobacco Use Smoking Status: Never smoker Tobacco Use: Non-smoker Meaningful Use Info Meaningful Use Diagnoses (Choose all that apply): None applicable <Casey Palacio - Last Filed: 03/02/19 12:55> Discharge Date and Diagnosis - Secondary Discharge Diagnosis Chronic Problems Pulmonary fibrosis (Chronic) Chronic restrictive lung disease (Chronic) 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 I have independently interviewed and examined the patient and reviewed pertinent historical, laboratory, and other data. Please refer to LAITH Bernstein note for details of this patient's presentation, findings, and recommendations. I have reviewed LAITH Bernstein note and concur with documented findings. In brief, patient is a 83-year-old lady with history of chronic hypoxic respiratory failure secondary to pulmonary fibrosis admitted with progressive shortness of breath. Patient condition did not improve despite optimal treatm ent. She was made to consult hospice team following discussion with the family. 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 Laboratory Tests Past 24 Hrs 02/27/19 14:02 Cycl Citrul Peptide IgG 3 Code Visit Inpatient E&M: 73092 Disch Hosp
[2019-03-02] MEDS: morphine (oral solution) 10MG/0.5ML Syringe 2.5 MG SL/PO (12:29)
== END 2019-03-02 13:13 | disposition hospice, inpatient (51) | DRG 196 ==
LOC: ED 12:18 → PCU 13:30
PROVIDERS: Internal Medicine Critical Care Medicine; Physician Assistant; Admitting Provider Family Medicine; Emergency Provider Emergency Medicine; Family Provider Internal Medicine; PCP Internal Medicine; Referring Provider Family Medicine; Visit Provider Internal Medicine
DX: J84.89 Other specified interstitial pulmonary diseases (principal); J96.21 Acute and chronic respiratory failure with hypoxia; J84.10 Pulmonary fibrosis, unspecified; Z99.81 Dependence on supplemental oxygen; E87.6 Hypokalemia; I10 Essential (primary) hypertension; Z66 Do not resuscitate; Z51.5 Encounter for palliative care; I27.20 Pulmonary hypertension, unspecified; R54 Age-related physical debility; R53.81 Other malaise; Z86.19 Personal history of other infectious and parasitic diseases; Z90.49 Acquired absence of other specified parts of digestive tract
CPT/HCPCS: 36415; 71045; 71275; 80048; 83605; 83735; 84484; 85025; 86038; 86200; 86225; 86235; 86431; 87040; 87633; 93005; 94640; 97802; 99285; Q9967; A4216; J1940

== ENCOUNTER 2019-06-12 05:11 | Emergency (ER) | payer MEDICARE, OTHER, SELFPAY ==
[2019-02-26 14:05] VITALS: BMI 20.2
[2019-06-12 05:12] VITALS: BP 134/98; PULSE 74; RESP 24; TEMP 36.5; O2SAT 83; BMI 21.7
[2019-06-12 05:18] VITALS: O2SAT 100
[2019-06-12] MEDS: Tetracaine/Benzocaine/Butamben 1 APPLIC TOPICAL (05:25)
[2019-06-12] MEDS: Oxymetazoline 0.05% 1 SPRAY SPRAY.BTL 2 SPRAY NASAL (05:25)
--- NOTE | 2019-06-12 06:30 | ED.DCSUM_ITS ---
History of Present Illness Chief Complaint: Nosebleed Informant: Patient, - - Staff at hospice Onset: Today Current Severity: Moderate Maximum Severity: Moderate Narrative: Patient is currently in inpatient hospice care secondary to pulmonary fibrosis. She is on 5 L of oxygen chronically. Patient woke up around 4 AM this morning with left-sided nosebleed. She does report that her oxygen is humidified. She is never had problems like this before. She denies any recent trauma. She is not on anticoagulants. - Past Medical History (1) Hypoxia Status: Chronic (2) Chronic restrictive lung disease Status: Chronic (3) Hypertension Status: Chronic (4) Interstitial lung disease Status: Chronic (5) Pulmonary fibrosis Status: Chronic Past Medical History - Allergies and Home Meds Allergies/Adverse Reactions: Allergies LOBSTER Allergy (Uncoded 06/12/19 05:19) Anaphylaxis Primary Care Physician: Rakel Franco MD [Primary Care Provider] - Doctors: [facility] Prior records reviewed: Yes Surgical History: colectomy - Laparoscopic sigmoid. Lives: - - [facility] hospice Smoking Status: Never smoker - Family History Paternal Family History: Reports: - - Patient denies any market paternal family history including heart disease, diabetes, cancer. Maternal Family History: Reports: Heart Disease Sibling Family History: Reports: Cancer - lung Review of Systems General: Denies: Chills, Fever Eyes: Denies: Visual changes - bilaterally ENT: Reports: - - Left-sided epistaxis. Denies: Sore throat Cardiovascular: Denies: Chest pain, Palpitations Respiratory: Reports: Dyspnea - Chronic dyspnea secondary to pulmonary fibrosis. Denies: Cough Gastrointestinal: Denies: Abdominal pain, Nausea, Vomiting Musculoskeletal: Denies: Extremity Pain Skin: Denies: Rash Hematologic: Denies: Easy bruising, Easy bleeding Allergy: Denies: Uticaria Physical Exam Vital Signs/Narrative: Vital Signs Temp Pulse Resp BP Pulse Ox 06/12/19 05:18 100 06/12/19 05:12 97.7 F L 74 24 H 134/98 H 83 General: Well nourished, Well developed ENT: - - Nasal clamp in place with blood noted to the left nare. Neck: Supple Cardiovascular: Regular rate, Regular rhythm Respiratory: - - Coarse breath sounds bilaterally Abdomen: Soft Extremities: Nontender Skin: Normal color Neurological: Alert, Oriented x3 Diagnostic/Tx/Re-eval - Medical Decision Making Cottonball soaked in Afrin and Cetacaine was applied to the left nare and nasal clamp was placed. After approximately 5 minutes this was removed and a 5.5 cm anterior Rhino Rocket was placed. Balloon was inflated. On repeat evaluation patient is had no further bleeding. Patient is chronically on 5 L nasal cannula and was placed on a simple mask secondary to the fact that she now has nasal packing in place. Patient denies feeling short of breath. [facility] with instructions to follow-up with ENT in 3 to 5 days. ED Disposition - Plan for ED Patient: Disposition: Home or Assisted Living Diagnosis: Nosebleed Instructions: Nosebleed Referrals: Rakel Franco MD [Primary Care Provider] - Pato Ozuna MD [STAFF PHYSICIAN] - 3-5 Days Additional Instructions: Follow-up with ENT in 3 days for removal of packing.
[2019-06-12 07:49] VITALS: BP 126/77; PULSE 62; RESP 15; O2SAT 97
== END 2019-06-12 07:51 | disposition home or self-care (01) ==
PROVIDERS: Emergency Provider Emergency Medicine; Family Provider Internal Medicine; PCP Internal Medicine
DX: R04.0 Epistaxis (principal); J84.10 Pulmonary fibrosis, unspecified; Z99.81 Dependence on supplemental oxygen; I10 Essential (primary) hypertension; Z82.49 Family history of ischemic heart disease and other diseases of the circulatory system
CPT/HCPCS: 30901; 99283